=== PATIENT | male | born 1945 | race Caucasian/White ===

== ENCOUNTER 2018-04-02 10:09 | Outpatient (RCR) | payer MEDICARE, BC, SELFPAY | END 2018-04-02 10:10 | disposition home or self-care (01) | LOC: PT 10:09 | PROVIDERS: PCP Internal Medicine Adolescent Medicine; Visit Provider Internal Medicine | DX: I25.10 Atherosclerotic heart disease of native coronary artery without angina pectoris (principal) | CPT/HCPCS: 93798 ==

== ENCOUNTER 2018-07-15 17:14 | Inpatient (IN) ==
[2018-07-15 18:18] LABS: Basophils % 0.1 % (0.1-2.0); Eosinophils % 0.2 % (0.1-12.0); Hematocrit 34.6 % (42.0-52.0); Hemoglobin 11.9 g/dL (14.1-18.0); Lymphocytes # 0.6 K/mm3 (0.7-4.5); Lymphocytes % 9.9 % (10-50); Mean Corpuscular HGB Conc 34.6 g/dL (31.8-35.4); Mean Corpuscular Hemoglobin 30.3 pg (27.0-31.2); Mean Corpuscular Volume 87.7 fl (80-94); Mean Platelet Volume 6.2 fl (7.4-10.4); Monocytes # 0.4 K/mm3 (0.1-1.0); Monocytes % 7.4 % (1.7-9.3); Neutrophils # 4.5 K/mm3 (1.8-7.8); Neutrophils % 82.4 % (37.0-80.0); Platelet Count 201 K/mm3 (142-424); Red Blood Count 3.94 M/mm3 (4.60-6.20); Red Cell Distribution Width 13.2 % (11.5-17.5); White Blood Count 5.5 K/mm3 (4.8-10.8)
[2018-07-15 18:30] LABS: Albumin Level 3.4 gm/dL (3.4-5.0); Albumin/Globulin Ratio 0.9 (1.1-1.8); Bilirubin,Total 1.2 mg/dL (0.2-1.0); Calcium 8.4 mg/dL (8.5-10.1); Globulin 3.8 gm/dl (1.3-3.2); Potassium 3.3 mmoL/L (3.5-5.1); Total Protein,Serum 7.2 gm/dL (6.4-8.2)
[2018-07-15 18:35] LABS: Anion Gap 13.3 mEq/L (5-15)
--- NOTE | 2018-07-15 20:27 | Emergency Department Note ---
ED Disposition Clinical Impression: Gastroenteritis, Dehydration, Hyponatremia, Hypokalemia Disposition: Admitted as Observation Condition on Discharge: Good - Critical Care Critical Care Time: No Attestation: On 07/15/18, the high probability of a clinically significant, sudden or life threatening deterioration of the following system(s) required my full and direct attention, intervention and personal management. The time I documented below is in addition to time spent performing reported procedures but includes the follow ing listed in this critical care notation. Medical Decision Making - Medical Records Medical records reviewed: Yes: I reviewed the patient's medical records. - Jacob Inquiry Pt receiving controlled substance: No Jacob was queried for this patient: No Vital Signs: 07/15/18 17:52 Temperature 99.1 F Temperature Source Oral Pulse Rate [Left Radial] 89 Respiratory Rate 18 Blood Pressure [Right Arm] 119/61 Blood Pressure Mean [Right Arm] 80 Blood Pressure Source [Right Arm] Automatic Cuff Blood Pressure Position [Right Arm] Sitting 02 Sat by Pulse Oximetry 99 Oxygen Delivery Method Room Air - Lab Data Lab results reviewed: Yes: I reviewed the patient's lab results. Lab Results 07/15/18 18:10: WBC 5.5, RBC 3.94 L, Hgb 11.9 L, Hct 34.6 L, MCV 87.7, MCH 30.3, MCHC 34.6, RDW 13.2, Plt Count 201, MPV 6.2 L, Neut % (Auto) 82.4 H, Lymph % (Auto) 9.9 L, [place] % (Auto) 7.4, Eos % (Auto) 0.2, Baso % (Auto) 0.1, Neut # (Auto) 4.5, Lymph # (Auto) 0.6 L, [place] # (Auto) 0.4, Eos # (Auto) 0.0, Baso # (Auto) 0.0 07/15/18 18:10: Sodium 117 L, Potassium 3.3 L, Chloride 83 L, Carbon Dioxide 24, Anion Gap 13.3, BUN 9, Creatinine 0.81, Estimated Creat Clear 79, Estimated GFR 94, Est GFR ( Amer) 114, Glucose 117 H, Calcium 8.4 L, Total Bilirubin 1.2 H, AST 23, ALT 35, Alkaline Phosphatase 58, Total Protein 7.2, Albumin 3.4, Globulin 3.8 H, Albumin/Globulin Ratio 0.9 L Result diagrams: 07/15/18 18:10 07/15/18 18:10 Orders (Tests/Meds): ED MEDICATIONS Generic Name Dose Route Start Last Admin Trade Name Freq PRN Reason Stop Dose Admin Lactated Ringer's 1,000 mls @ 999 mls/hr 07/15/18 18:15 07/15/18 18:20 Lactated Ringer's 1000 Ml Bag IV 07/15/18 19:15 999 mls/hr .[id number] Administration Sodium Chloride 10 ml 07/15/18 17:57 Saline Flush 10ml Syringe IV 08/14/18 17:56 NEEDED PRN Maintain IV Site Discontinued Medications Generic Name Dose Route Start Last Admin Trade Name Freq PRN Reason Stop Dose Admin Ondansetron HCl 4 mg 07/15/18 18:13 07/15/18 18:20 Zofran 4mg/2ml Vial IV 07/15/18 18:14 4 mg ONCE ONE Administration Potassium Chloride 60 meq 07/15/18 20:23 07/15/18 21:03 Potassium Chloride 20meq/15ml Solution Udc PO 07/15/18 20:24 60 meq ONCE ONE Administration Medical Decision Narrative: Differential diagnosis viral gastroenteritis, colitis, viral syndrome dehydrat ion Patient started on IV fluids Ringer's lactate and given Zofran for nausea and pain of symptoms however his electrolytes show us her hyponatremia of [address] Cosme covering for Dr. Quiñones patient will be admitted discussed with family General Adult HPI - General Chief complaint: Nausea/Vomiting/Diarrhea Stated complaint: virus, D&V Time Seen by Provider: 07/15/18 17:55 Mode of Arrival: Ambulatory Source of Information: Patient Limitations: No Limitations Description of Symptoms (Recalled from ER Triage Doc. by RN): to ed per pvt car with c/o nausea, vomiting, diarrhea x 3 days pt denies any fever chills, abd pain denies any sick contacts. - History of Present Illness HPI narrative: 72-year-old male complaining of vomiting some diarrhea for last 2 days complains of weakness a history of one cardiac stent and history of HI in the past he is being treated for hypertension - Related Data Home Medications Medication Instructions Recorded Confirmed cholecalciferol (vitamin D3) 2,000 2,000 unit PO DAILY 04/07/18 07/01/18 unit capsule vitamin B complex tablet 1 tab PO DAILY 04/07/18 07/01/18 Previous Rx's Medication Instructions Recorded LORazepam [Ativan 0.5mg tablet] 0.5 mg PO BID #10 tab 03/28/18 aspirin 81 mg tablet,delayed 81 mg PO DAILY #90 tab 04/07/18 release bisoprolol fumarate 10 mg tablet 10 mg PO DAILY #90 tab 04/07/18 ezetimibe 10 mg-simvastatin 80 mg 1 tab PO DAILY 90 Days #90 tab 04/07/18 tablet lisinopril 20 mg tablet 40 mg PO DAILY 90 Days #180 tab 04/07/18 ticagrelor 90 mg tablet 90 mg PO BID 90 Days #180 tab 04/07/18 hydrochlorothiazide 25 mg tablet 25 mg PO DAILY #30 tab 05/12/18 amlodipine 10 mg tablet 10 mg PO DAILY #90 tab 07/01/18 Allergies Allergy/AdvReac Type Severity Reaction Status Date / Time No Known Allergies Allergy Verified 07/01/18 09:38 [facility] History - Hepatitis A Screen Drug use history?: No High risk sexual behaviors?: No History of sexually transmitted infection?: No Currently employed?: No Childcare worker?: No Do you have indoor plumbing?: Yes Do you have electricity?: Yes Attestation statement:: This patient has been screened for Hepatitis A risk factors. I have reviewed the patient's past medical history: Yes Medical History: Reports:: Anxiety, Coronary Artery Disease, Hyperlipidemia, Hypertension, Myocardial Infarction Denies:: Cancer, Diabetes Mellitus Type 2, Internal Pacemaker, MRSA, Seizures Other Surgeries: Yes: CABG, Cardiac Catheterization, Other (gastic ulcers-1993). No: Pacemaker - Social History Smoking Status: Former smoker Alcohol Intake: never Alcohol Intake Frequency:: holidays/special occasions only Substance Use Type: denies use Occupational Status: retired Housing: house Household Members: spouse - Psychiatric History Expresses thoughts of harming self/others: None Suicide Plan Description: No Plan Pschychiatric History:: Reports:: Anxiety Family Hx:: Coronary Artery Disease, Heart Attack Comment: Mom-HI at 78. Brother-HI at 47 ROS Obtained: Yes All systems reviewed & no additional complaints - Constitutional Constitutional: Reports as per HPI - Gastrointestinal Gastrointestingal: Reports: as per HPI, bloating, diarrhea, nausea Physical Exam - General General appearance: alert, in no apparent distress - Head Head exam: atraumatic, normocephalic, normal inspection - Eye Eye exam: Present: normal appearance, PERRL, EOMI - ENT ENT exam: Present: normal exam, normal oropharynx, mucous membranes moist, TM's normal bilaterally, normal external ear exam - Neck Neck exam: Present: normal inspection, full ROM, trachea midline. Absent: meningismus, lymphadenopathy - Chest Chest inspection: Present: normal inspection, symmetric chest wall rise. Absent: tenderness - Respiratory Respiratory exam: Present: normal lung sounds bilaterally. Absent: respiratory distress - Cardiovascular Cardiovascular exam: Present: regular rate, normal rhythm. Absent: JVD - Abdominal Exam Abdominal exam: Present: soft, normal bowel sounds. Absent: distention, tenderness, guarding - Extremities Exam Extremities exam: Present: normal inspection, full ROM, normal capillary refill. Absent: calf tenderness - Back Exam Back exam: Present: normal inspection. Absent: tenderness - Neurological Exam Neurological exam: Present: alert, oriented X3 - Psychiatric Psychiatric exam: Present: normal affect, normal mood - Skin Skin exam: Present: warm, dry, intact, normal color - Lymphatic Lymphatic Findings: no adenopathy
[2018-07-16 07:25] LABS: Anion Gap 11.4 mEq/L (5-15); Calcium 8.6 mg/dL (8.5-10.1); Potassium 3.4 mmoL/L (3.5-5.1)
--- NOTE | 2018-07-16 07:35 | Pharmacy Consult Notes ---
[facility] Pharmacy VTE Monitoring - Patient Demographics Admission date: 07/15/18 Report Date: 07/16/18 Time: 07:35 Allergies/Adverse Reactions: Patient Allergies No Known Allergies Allergy (Verified 07/01/18 09:38) Height: 1.7 m Weight: 83.461 kg Patient Problems: Current Active Problems Hyponatremia (Acute) Gastroenteritis (Acute) Dehydration (Acute) Hypokalemia (Acute) - VTE Risk Labs: VTE Related Lab Results Hgb 11.9 g/dL (14.1-18.0) L 07/15/18 18:10 Hct 34.6 % (42.0-52.0) L 07/15/18 18:10 Plt Count 201 K/mm3 (142-424) 07/15/18 18:10 BUN 7 mg/dL (7-18) 07/16/18 06:55 Creatinine 1.03 mg/dL (0.70-1.30) D 07/16/18 06:55 Estimated Creat Clear 79 mL/min (50-200) 07/16/18 06:55 Was VTE Risk Assessment Performed: Yes VTE Score: 4 VTE Risk Level: Low Risk - Prophylaxis VTE Prophylaxis Ordered?: Yes Types of VTE Prophylaxis: TEDS Knee High Location of Applied Device: Bilateral Lower Extremeties - VTE Diagnosis Confirmed Treatment or plan recommended: Continue Current Treatment
--- NOTE | 2018-07-16 09:20 | History & Physical Report ---
*Admission Date: 07/15/18 *Chief complaint: diarrhea *History of present illness: 72-year-old male complaining of vomiting with diarrhea for 7 days complains of weakness a history of one cardiac stent and history of [place] in the past he is being treated for hypertension. Patient stated he did with vomiting and diarrhea a week ago after eating lettuce. States at first he was constipated and took some mineral all and since then has had diarrhea. Patient states he has had 4 diarrheas this a.m. patient admitted for dehydration. Stool positive for Salmonella. Will hydrate. [facility] History I have reviewed the patient's past medical history: Yes Medical History: Reports:: Anxiety, Coronary Artery Disease, Hyperlipidemia, Hypertension, Myocardial Infarction Denies:: Cancer, Diabetes Mellitus Type 1, Diabetes Mellitus Type 2, Internal Pacemaker, MRSA, Seizures Have you ever received a pneumonia vaccine?: No Have you received a flu vaccine this season?: No Other Medical History: Reports: Sinus Problems (L SIDE BLOCKAGE) Other Surgeries: Yes: CABG, Cardiac Catheterization, Colonoscopy, Other (gastic ulcers-1993). No: Pacemaker - *Social History Educational Level: Completed High School Smoking Status: Former smoker #Yrs smoked (if former smoker): 12 Alcohol Intake: current Alcohol Intake Frequency:: a few times a week Substance Use Type: denies use Occupational Status: retired Housing: house Household Members: spouse, children Travel in the last 8 weeks: None - Psychiatric History Expresses thoughts of harming self/others: None Suicide Plan Description: No Plan Pschychiatric History:: Reports:: Anxiety *Family Hx:: Heart Attack Review of Systems - Constitutional Reports weakness - Eyes Denies change in vision - ENT Denies change in voice, Denies dizziness - *Cardiovascular Denies chest pain with activity - *Respiratory Denies chest congestion, Denies cough - *Gastrointestinal Reports abdominal pain, Reports change in bowel habits, Reports loose stools, Reports nausea, Reports vomiting - *Genitourinary Denies urinary frequency - *Musculoskeletal Denies back pain - Integumentary/Breasts Denies rash - *Neurologic Denies abnormal movements - Psychiatric Denies anxiety Meds Home Medications Medication Instructions Recorded Confirmed Type cholecalciferol (vitamin D3) 2,000 2,000 unit PO DAILY 04/07/18 07/15/18 History unit capsule vitamin B complex tablet 1 tab PO DAILY 04/07/18 07/15/18 History Amlodipine Besylate [Amlodipine 5 mg PO DAILY 07/15/18 07/15/18 History 10mg Tab] Aspirin [Low Dose Aspirin EC] 81 mg PO HS 07/15/18 07/15/18 History Bisoprolol Fumarate [Bisoprolol 10 mg PO DAILY 07/15/18 07/16/18 History 10mg Tablet] Ezetimibe/Simvastatin 1 tab PO HS 07/15/18 07/15/18 History [Ezetimibe-Simvastatin 10-80 mg] LORazepam [Ativan 0.5mg tablet] 0.5 mg PO BID 07/15/18 07/15/18 History Lisinopril [Lisinopril 20mg Tab] 40 mg PO DAILY 07/15/18 07/16/18 History Ticagrelor [Brilinta] 90 mg PO BID 07/15/18 07/15/18 History hydroCHLOROthiazide [HCTZ 25mg 25 mg PO DAILY 07/15/18 07/15/18 History tab] Allergies Allergy/AdvReac Type Severity Reaction Status Date / Time No Known Allergies Allergy Verified 07/01/18 09:38 Exam Vital signs and Labs for Last 24 Hours: Temp Pulse Resp BP Pulse Ox 98.5 F 71 18 115/53 L 99 07/16/18 08:00 07/16/18 08:00 07/16/18 08:00 07/16/18 08:00 07/16/18 08:00 Laboratory Results - last 24 hr 07/15/18 18:10: WBC 5.5, RBC 3.94 L, Hgb 11.9 L, Hct 34.6 L, MCV 87.7, MCH 30.3, MCHC 34.6, RDW 13.2, Plt Count 201, MPV 6.2 L, Neut % (Auto) 82.4 H, Lymph % (Auto) 9.9 L, [place] % (Auto) 7.4, Eos % (Auto) 0.2, Baso % (Auto) 0.1, Neut # (Auto) 4.5, Lymph # (Auto) 0.6 L, [place] # (Auto) 0.4, Eos # (Auto) 0.0, Baso # (Auto) 0.0 07/15/18 18:10: Sodium 117 L, Potassium 3.3 L, Chloride 83 L, Carbon Dioxide 24, Anion Gap 13.3, BUN 9, Creatinine 0.81, Estimated Creat Clear 79, Estimated GFR 94, Est GFR ( Amer) 114, Glucose 117 H, Calcium 8.4 L, Total Bilirubin 1.2 H, AST 23, ALT 35, Alkaline Phosphatase 58, Total Protein 7.2, Albumin 3.4, Globulin 3.8 H, Albumin/Globulin Ratio 0.9 L 07/16/18 05:50: Stl Aeromonas (PCR) Not detected, Stl C. cayetanensis PCR Not detected, Stool Rotavirus (PCR) Not detected, Stl Adenov F 40/41 PCR Not detected, Stool Astrovirus (PCR) Not detected, Stool Campylobacter PCR Not detected, Stl C.difficile Tox PCR Not detected, Stool Cryptosporidium PCR Not detected, Stl E.coli Shiga Tox PCR Not detected, Stool E coli O157 PCR Not detected, Stl Enterotoxigenic E PCR Not detected, Stool EPEC (PCR) Not detected, Stool EAEC (PCR) Not detected, Stl E. histolytica PCR Not detected, Stool Giardia Lamblia PCR Not detected, Stool Salmonella PCR Detected A, Stool Sapovirus (PCR) Not detected, Stl P. shigelloides PCR Not detected, Stl Shigella/EIEC PCR Not detected, St Y.enterocolitica PCR Not detected, Stool Vibrio (PCR) Not detected, Stl Vibrio cholerae PCR Not detected, Stl Norovirus GI/GII PCR Not detected 07/16/18 06:55: Sodium 124 L, Potassium 3.4 L, Chloride 89 L, Carbon Dioxide 27, Anion Gap 11.4, BUN 7, Creatinine 1.03 D, Estimated Creat Clear 79, Estimated GFR 71, Est GFR ( Amer) 86 D, Glucose 116 H, Calcium 8.6 I & O for Last 24 hours: Intake & Output 07/13/18 07/14/18 07/15/18 07/16/18 11:59 11:59 11:59 11:59 Intake Total 2250 / 2250 Output Total 550 / 550 Balance 1700 / 1700 Weight 184 lb - Constitutional no acute distress - *Routine HEENT Exam Head: Present: normocephalic Eye: Present: PERRL ENT: Present: mucous membranes moist - *Routine Neck Exam Present: supple. Absent: lymphadenopathy - *Routine Respiratory Exam Present: CTA bilaterally - *Routine Cardiovascular Exam Present: RRR - *Routine Abdominal Exam Present: soft, normoactive bowel sounds, tenderness - *Routine Extremities Exam Absent: cyanosis, clubbing, edema - *Routine Skin Exam Present: warm. Absent: rash - *Routine Neurological Exam Present: alert, oriented X3 - Routine Psychiatric Exam Present: normal affect Assessment and Plan (1) Salmonella Current visit: Yes Status: Acute Category: Medical Code(s): A02.9 - Salmonella infection, unspecified - Assessment and plan all Dx Assessment and Plan for all problems:: Fluid hydration Dr. Cosme will round later today, all orders per Dr. Cosme.
[2018-07-17 06:54] LABS: Basophils % 0.2 % (0.1-2.0); Hematocrit 32.8 % (42.0-52.0); Lymphocytes # 0.4 K/mm3 (0.7-4.5); Lymphocytes % 13.6 % (10-50); Mean Corpuscular HGB Conc 33.5 g/dL (31.8-35.4); Mean Corpuscular Hemoglobin 29.9 pg (27.0-31.2); Mean Corpuscular Volume 89.4 fl (80-94); Monocytes # 0.3 K/mm3 (0.1-1.0); Monocytes % 8.5 % (1.7-9.3); Neutrophils # 2.4 K/mm3 (1.8-7.8); Neutrophils % 77.7 % (37.0-80.0); Platelet Count 182 K/mm3 (142-424); Red Blood Count 3.67 M/mm3 (4.60-6.20); Red Cell Distribution Width 13.1 % (11.5-17.5)
[2018-07-17 07:34] LABS: Albumin Level 2.8 gm/dL (3.4-5.0); Albumin/Globulin Ratio 0.8 (1.1-1.8); Anion Gap 16.4 mEq/L (5-15); Globulin 3.6 gm/dl (1.3-3.2); Potassium 3.4 mmoL/L (3.5-5.1); Total Protein,Serum 6.4 gm/dL (6.4-8.2)
[2018-07-17 07:36] LABS: Bilirubin,Total 1.3 mg/dL (0.2-1.0); Calcium 8.1 mg/dL (8.5-10.1)
--- NOTE | 2018-07-17 07:53 | Progress Note ---
Internal Medicine - PN: Subj *Date: 07/17/18 *Time: 07:51 Interval history: Patient continues to have some diarrhea. Has had no vomiting. No fevers. Exam Vital signs and Labs for Last 24 Hours: Temp Pulse Resp BP Pulse Ox 99.4 F 73 18 107/58 L 96 07/17/18 04:00 07/17/18 04:00 07/17/18 04:00 07/17/18 04:00 07/17/18 04:00 Laboratory Results - last 24 hr 07/16/18 05:50: Stl Aeromonas (PCR) Not detected, Stl C. cayetanensis PCR Not detected, Stool Rotavirus (PCR) Not detected, Stl Adenov F 40/41 PCR Not detected, Stool Astrovirus (PCR) Not detected, Stool Campylobacter PCR Not detected, Stl C.difficile Tox PCR Not detected, Stool Cryptosporidium PCR Not detected, Stl E.coli Shiga Tox PCR Not detected, Stool E coli O157 PCR Not detected, Stl Enterotoxigenic E PCR Not detected, Stool EPEC (PCR) Not detected, Stool EAEC (PCR) Not detected, Stl E. histolytica PCR Not detected, Stool Giardia Lamblia PCR Not detected, Stool Salmonella PCR Detected A, Stool Sapovirus (PCR) Not detected, Stl P. shigelloides PCR Not detected, Stl Shigella/EIEC PCR Not detected, St Y.enterocolitica PCR Not detected, Stool Vibrio (PCR) Not detected, Stl Vibrio cholerae PCR Not detected, Stl Norovirus GI/GII PCR Not detected 07/17/18 06:10: WBC 3.0 L D, RBC 3.67 L, Hgb 11.0 L, Hct 32.8 L, MCV 89.4, MCH 29.9, MCHC 33.5, RDW 13.1, Plt Count 182, MPV 8.0, Neut % (Auto) 77.7, Lymph % (Auto) 13.6, [place] % (Auto) 8.5, Eos % (Auto) 0.0 L, Baso % (Auto) 0.2, Neut # (Auto) 2.4, Lymph # (Auto) 0.4 L, [place] # (Auto) 0.3, Eos # (Auto) 0.0, Baso # (Auto) 0.0 02/01/19 06:10: Sodium 126 L, Potassium 3.4 L, Chloride 92 L, Carbon Dioxide 21 D, Anion Gap 16.4 H, BUN 5 L D, Creatinine 0.72 D, Estimated Creat Clear 85, Estimated GFR 108, Est GFR ( Amer) 131 D, Glucose 101, Calcium 8.1 L, Total Bilirubin 1.3 H, AST 29 D, ALT 30, Alkaline Phosphatase 47, Total Protein 6.4, Albumin 2.8 L D, Globulin 3.6 H, Albumin/Globulin Ratio 0.8 L I & O for Last 24 hours: Intake & Output 07/14/18 07/15/18 07/16/18 07/17/18 11:59 11:59 11:59 11:59 Intake Total 2250 / 2250 1418 / 1418 Output Total 550 / 550 200 / 200 Balance 1700 / 1700 1218 / 1218 Weight 184 lb 192 lb 3 oz Narrative: Patient is pleasant and talkative. Lungs clear heart regular. Blood pressure normal. No rash. Neurologically intact. Abdomen soft, minimal tenderness. Normal bowel sounds. No scleral icterus or signs of liver disease. Assessment and Plan (1) Salmonella Current visit: Yes Status: Acute Category: Medical Code(s): A02.9 - Salmonella infection, unspecified No indication for antibiotic therapy at this point given no evidence of sepsis however blood cultures were not ordered the ER. We will order these for completeness sake. Follow labs tomorrow. Pepto-Bismol for symptomatic relief and toxin binding. Close follow-up and discharge when improved. Laboratory studies have been reported to the appropriate health department authorities. Patient thinks that he acquired the infection from some josué lettuce from a local grocery.
[2018-07-18 07:31] LABS: Basophils % 0.1 % (0.1-2.0); Hematocrit 28.8 % (42.0-52.0); Hemoglobin 9.8 g/dL (14.1-18.0); Lymphocytes # 0.4 K/mm3 (0.7-4.5); Lymphocytes % 14.8 % (10-50); Mean Corpuscular HGB Conc 33.9 g/dL (31.8-35.4); Mean Corpuscular Hemoglobin 29.9 pg (27.0-31.2); Mean Corpuscular Volume 88.3 fl (80-94); Mean Platelet Volume 6.7 fl (7.4-10.4); Monocytes # 0.2 K/mm3 (0.1-1.0); Monocytes % 5.1 % (1.7-9.3); Neutrophils # 2.4 K/mm3 (1.8-7.8); Platelet Count 189 K/mm3 (142-424); Red Blood Count 3.27 M/mm3 (4.60-6.20); Red Cell Distribution Width 13.1 % (11.5-17.5); White Blood Count 2.9 K/mm3 (4.8-10.8)
[2018-07-18 07:40] LABS: Calcium 7.7 mg/dL (8.5-10.1)
--- NOTE | 2018-07-18 08:54 | Progress Note ---
Internal Medicine - PN: Subj *Date: 07/18/18 *Time: 08:53 Interval history: Patient did not have a good evening, lots of liquid stools. No blood. Some chills but no fever. Exam Vital signs and Labs for Last 24 Hours: Temp Pulse Resp BP Pulse Ox 97.9 F 70 18 114/51 L 98 07/18/18 08:00 07/18/18 08:00 07/18/18 08:00 07/18/18 08:00 07/18/18 08:00 Laboratory Results - last 24 hr 07/18/18 07:10: WBC 2.9 L, RBC 3.27 L, Hgb 9.8 L, Hct 28.8 L, MCV 88.3, MCH 29.9, MCHC 33.9, RDW 13.1, Plt Count 189, MPV 6.7 L, Neut % (Auto) 80.0, Lymph % (Auto) 14.8, [place] % (Auto) 5.1, Eos % (Auto) 0.0 L, Baso % (Auto) 0.1, Neut # (Auto) 2.4, Lymph # (Auto) 0.4 L, [place] # (Auto) 0.2, Eos # (Auto) 0.0, Baso # (Auto) 0.0 07/18/18 07:10: Sodium 121 L, Potassium 3.0 L, Chloride 88 L, Carbon Dioxide 23, Anion Gap 13.0, BUN 6 L, Creatinine 0.77, Estimated Creat Clear 86, Estimated GFR 100, Est GFR ( Amer) 121, Glucose 138 H, Calcium 7.7 L I & O for Last 24 hours: Intake & Output 07/15/18 07/16/18 07/17/18 07/18/18 11:59 11:59 11:59 11:59 Intake Total 2250 / 2250 1658 / 1658 4297 / 4297 Output Total 550 / 550 500 / 500 Balance 1700 / 1700 1158 / 1158 4297 / 4297 Weight 184 lb 192 lb 3 oz 195 lb 4 oz Narrative: Patient's alert. Pleasant. Talkative. Oropharynx slightly dry. Lungs clear. Heart rate regular. Not tachycardic. Blood pressure stable. Distal tissue perfusion is good. Abdomen soft, very minimal tenderness in the lower quadrants but no rebound or guarding. Neurologically intact. No icterus or jaundice. Assessment and Plan (1) Salmonella Current visit: Yes Status: Acute Category: Medical Code(s): A02.9 - Salmonella infection, unspecified Given his age and hospitalization status as well as failure to improve I will initiate antibiotic therapy with oral quinolones. (2) Dehydration Current visit: Yes Status: Acute Category: Medical Code(s): E86.0 - Dehydration Switch IV fluids to normal saline with potassium to counteract hypokalemia, Lomotil to help stop diarrhea to help with sodium balance. (3) Hypokalemia Current visit: Yes Status: Acute Category: Medical Code(s): E87.6 - Hypokalemia (4) Hyponatremia Current visit: Yes Status: Acute Category: Medical Code(s): E87.1 - Hypo- osmolality and hyponatremia
[2018-07-18 18:21] LABS: Anion Gap 9.5 mEq/L (5-15); Calcium 7.5 mg/dL (8.5-10.1); Potassium 3.5 mmoL/L (3.5-5.1)
[2018-07-19 06:51] LABS: Basophils % 0.3 % (0.1-2.0); Eosinophils % 0.1 % (0.1-12.0); Hemoglobin 9.8 g/dL (14.1-18.0); Lymphocytes # 0.6 K/mm3 (0.7-4.5); Lymphocytes % 13.5 % (10-50); Mean Corpuscular HGB Conc 33.6 g/dL (31.8-35.4); Mean Corpuscular Hemoglobin 29.8 pg (27.0-31.2); Mean Corpuscular Volume 88.5 fl (80-94); Mean Platelet Volume 6.3 fl (7.4-10.4); Monocytes # 0.3 K/mm3 (0.1-1.0); Monocytes % 8.2 % (1.7-9.3); Neutrophils # 3.2 K/mm3 (1.8-7.8); Neutrophils % 77.9 % (37.0-80.0); Platelet Count 206 K/mm3 (142-424); Red Blood Count 3.29 M/mm3 (4.60-6.20); Red Cell Distribution Width 13.3 % (11.5-17.5); White Blood Count 4.1 K/mm3 (4.8-10.8)
[2018-07-19 06:54] LABS: Hematocrit 29.1 % (42.0-52.0)
[2018-07-19 06:59] LABS: Anion Gap 11.4 mEq/L (5-15); Calcium 8.1 mg/dL (8.5-10.1); Potassium 3.4 mmoL/L (3.5-5.1)
--- NOTE | 2018-07-19 07:35 | Progress Note ---
Internal Medicine - PN: Subj *Date: 07/19/18 *Time: 07:34 Interval history: Patient continues to have copious, frequent, liquid stool, but has not vomited recently. Was able to eat some toast and a banana for breakfast. No fevers. Tolerating levofloxacin well. Exam Vital signs and Labs for Last 24 Hours: Temp Pulse Resp BP Pulse Ox 97.9 F 77 20 124/54 L 95 07/19/18 03:44 07/19/18 03:44 07/19/18 03:44 07/19/18 03:44 07/19/18 03:44 Laboratory Results - last 24 hr 07/18/18 07:10: WBC 2.9 L, RBC 3.27 L, Hgb 9.8 L, Hct 28.8 L, MCV 88.3, MCH 29.9, MCHC 33.9, RDW 13.1, Plt Count 189, MPV 6.7 L, Neut % (Auto) 80.0, Lymph % (Auto) 14.8, [place] % (Auto) 5.1, Eos % (Auto) 0.0 L, Baso % (Auto) 0.1, Neut # (Auto) 2.4, Lymph # (Auto) 0.4 L, [place] # (Auto) 0.2, Eos # (Auto) 0.0, Baso # (Auto) 0.0 07/18/18 07:10: Sodium 121 L, Potassium 3.0 L, Chloride 88 L, Carbon Dioxide 23, Anion Gap 13.0, BUN 6 L, Creatinine 0.77, Estimated Creat Clear 86, Estimated GFR 100, Est GFR ( Amer) 121, Glucose 138 H, Calcium 7.7 L 07/18/18 18:03: Sodium 119 L, Potassium 3.5, Chloride 88 L, Carbon Dioxide 25, Anion Gap 9.5, BUN 6 L, Creatinine 0.72, Estimated Creat Clear 86, Estimated GFR 108, Est GFR ( Amer) 131, Glucose 137 H, Calcium 7.5 L 07/19/18 06:35: WBC 4.1 L D, RBC 3.29 L, Hgb 9.8 L, Hct 29.1 L, MCV 88.5, MCH 29.8, MCHC 33.6, RDW 13.3, Plt Count 206, MPV 6.3 L, Neut % (Auto) 77.9, Lymph % (Auto) 13.5, [place] % (Auto) 8.2, Eos % (Auto) 0.1, Baso % (Auto) 0.3, Neut # (Auto) 3.2, Lymph # (Auto) 0.6 L, [place] # (Auto) 0.3, Eos # (Auto) 0.0, Baso # (Auto) 0.0 07/19/18 06:35: Sodium 124 L, Potassium 3.4 L, Chloride 92 L, Carbon Dioxide 24, Anion Gap 11.4, BUN 4 L D, Creatinine 0.68 L, Estimated Creat Clear 86, Estimated GFR 115, Est GFR ( Amer) 139, Glucose 114 H, Calcium 8.1 L I & O for Last 24 hours: Intake & Output 07/16/18 07/17/18 07/18/18 07/19/18 11:59 11:59 11:59 11:59 Intake Total 2250 / 2250 1658 / 1658 4297 / 4297 4244 / 4244 Output Total 550 / 550 500 / 500 Balance 1700 / 1700 1158 / 1158 4297 / 4297 4244 / 4244 Weight 184 lb 192 lb 3 oz 195 lb 4 oz 195 lb 4.003 oz Narrative: Up in a chair, pleasant. No jaundice. Lungs clear. Heart rate regular without tachycardia. Abdomen soft and nontender. No clubbing or edema. No skin rash. Neurologically intact Assessment and Plan (1) Salmonella Current visit: Yes Status: Acute Category: Medical Code(s): A02.9 - Salmonella infection, unspecified (2) Dehydration Current visit: Yes Status: Acute Category: Medical Code(s): E86.0 - Dehydration (3) Hypokalemia Current visit: Yes Status: Acute Category: Medical Code(s): E87.6 - Hypokalemia (4) Hyponatremia Current visit: Yes Status: Acute Category: Medical Code(s): E87.1 - Hypo- osmolality and hyponatremia - Assessment and plan all Dx Assessment and Plan for all problems:: No change in plans, electrolytes improving compared to yesterday. Patient appears somewhat stronger. Continue current plan.
[2018-07-20 07:00] LABS: Basophils % 0.1 % (0.1-2.0); Eosinophils % 0.1 % (0.1-12.0); Hematocrit 30.2 % (42.0-52.0); Hemoglobin 10.2 g/dL (14.1-18.0); Lymphocytes # 0.5 K/mm3 (0.7-4.5); Lymphocytes % 9.4 % (10-50); Mean Corpuscular HGB Conc 33.8 g/dL (31.8-35.4); Mean Corpuscular Hemoglobin 29.9 pg (27.0-31.2); Mean Corpuscular Volume 88.5 fl (80-94); Mean Platelet Volume 6.3 fl (7.4-10.4); Monocytes # 0.3 K/mm3 (0.1-1.0); Monocytes % 6.3 % (1.7-9.3); Neutrophils # 4.5 K/mm3 (1.8-7.8); Platelet Count 229 K/mm3 (142-424); Red Blood Count 3.42 M/mm3 (4.60-6.20); Red Cell Distribution Width 13.5 % (11.5-17.5); White Blood Count 5.4 K/mm3 (4.8-10.8)
[2018-07-20 07:14] LABS: Albumin Level 2.5 gm/dL (3.4-5.0); Albumin/Globulin Ratio 0.7 (1.1-1.8); Anion Gap 12.8 mEq/L (5-15); Bilirubin,Total 1.4 mg/dL (0.2-1.0); Calcium 7.9 mg/dL (8.5-10.1); Globulin 3.6 gm/dl (1.3-3.2); Potassium 3.8 mmoL/L (3.5-5.1); Total Protein,Serum 6.1 gm/dL (6.4-8.2)
--- NOTE | 2018-07-20 08:12 | Discharge Summary ---
General - General Admission date:: 07/15/18 Discharge date: 07/20/18 HPI HPI: 72-year-old male complaining of vomiting with diarrhea for 7 days complains of weakness a history of one cardiac stent and history of VT in the past he is being treated for hypertension. Patient stated he did with vomiting and diarrhea a week ago after eating lettuce. States at first he was constipated and took some mineral all and since then has had diarrhea. Patient states he has had 4 diarrheas this a.m. patient admitted for dehydration. Stool positive for Salmonella. Will hydrate. Hospital Course Hospital Course: Patient initially treated with supportive care, but given continuing electrolyte disturbance, advanced age and comorbidities quinolone antibiotics were started which improved his symptoms and he defervesced. Blood cultures were negative throughout his hospital stay. Hyponatremia, hypokalemia and hypocalcemia were treated with intravenous fluid electrolyte replacement respectively. Patient continued to have diarrhea but this has improved and he is able to take p.o. fluids and p.o. food with a low residue diet with minimal postprandial diarrhea. He wished to be discharged home today and has had no dizziness, chest pain or fevers over the past 48 hours. Plan will be to discharge home with quinolone therapy, Lomotil and his regular medications. Instructed on hydration with salt-containing beverages. Electrolyte panel in 48 hours and follow-up appointment in our office on . Objective Vital signs: Temp Pulse Resp BP Pulse Ox 97.4 F L 75 16 129/62 94 L 07/20/18 07:33 07/20/18 07:33 07/20/18 07:33 07/20/18 07:33 07/20/18 07:33 Narrative: Patient is pleasant, alert. No scleral icterus. No jaundice. Abdomen soft, normal bowel sounds. Lungs clear. Heart rate regular. Good distal perfusion. ENT exam clear. Oral mucosa moist. Neurologically intact. Results Labs on day of discharge: Labs from last 24 hours 07/20/18 07/20/18 06:40 06:40 WBC 5.4 D RBC 3.42 L Hgb 10.2 L Hct 30.2 L MCV 88.5 MCH 29.9 MCHC 33.8 RDW 13.5 Plt Count 229 MPV 6.3 L Neut % (Auto) 84.0 H Lymph % (Auto) 9.4 L Dawson % (Auto) 6.3 Eos % (Auto) 0.1 Baso % (Auto) 0.1 Neut # (Auto) 4.5 Lymph # (Auto) 0.5 L Dawson # (Auto) 0.3 Eos # (Auto) 0.0 Baso # (Auto) 0.0 Sodium 124 L Potassium 3.8 Chloride 93 L Carbon Dioxide 22 Anion Gap 12.8 BUN 4 L Creatinine 0.62 L Estimated Creat Clear 85 Estimated GFR 128 Est GFR ( Amer) 155 Glucose 109 H Calcium 7.9 L Total Bilirubin 1.4 H AST 37 ALT 46 Alkaline Phosphatase 46 Total Protein 6.1 L Albumin 2.5 L Globulin 3.6 H Albumin/Globulin Ratio 0.7 L Preliminary micro results at discharge 07/17/18 09:30 Blood Culture - Preliminary Blood NO GROWTH AFTER 48 HOURS 07/17/18 09:30 Blood Culture - Preliminary Blood NO GROWTH AFTER 48 HOURS DS: Diagnosis - Discharge Diagnosis (1) Salmonella Status: Acute (2) Dehydration Status: Resolved (3) Hypokalemia Status: Resolved (4) Hyponatremia Status: Resolved (5) Hypocalcemia Status: Resolved Discharge Plan - Patient Discharge Instructions ACTIVITY: Limited activity Additional Instructions: low residue diet. Gatorade or Powerade instead of water Patient Instructions: Viral Gastroenteritis, Low-Fiber/Low-Residue Diet, DI for Dehydration -- Adult, DI for Antibiotic -- associated Colitis -- C difficile, DI for Salmonellosis, Hyponatremia-Adult - Follow up Plan Follow up with: Jewell Hdz APRN [Nurse Practitioner] - 07/23/18 Disposition: Home, Self-Alf Medications: Home Medications Medication Instructions Recorded Confirmed Type cholecalciferol (vitamin D3) 2,000 2,000 unit PO DAILY 04/07/18 07/15/18 History unit capsule vitamin B complex tablet 1 tab PO DAILY 04/07/18 07/15/18 History Amlodipine Besylate [Amlodipine 5 mg PO DAILY 07/15/18 07/15/18 History 10mg Tab] Aspirin [Low Dose Aspirin EC] 81 mg PO HS 07/15/18 07/15/18 History Bisoprolol Fumarate [Bisoprolol 10 mg PO DAILY 07/15/18 07/16/18 History 10mg Tablet] Ezetimibe/Simvastatin 1 tab PO HS 07/15/18 07/15/18 History [Ezetimibe-Simvastatin 10-80 mg] LORazepam [Ativan 0.5mg tablet] 0.5 mg PO BID 07/15/18 07/15/18 History Lisinopril [Lisinopril 20mg Tab] 40 mg PO DAILY 07/15/18 07/16/18 History Ticagrelor [Brilinta] 90 mg PO BID 07/15/18 07/15/18 History hydroCHLOROthiazide [HCTZ 25mg 25 mg PO DAILY 07/15/18 07/15/18 History tab] Diphenoxylate HCl/Atropine 2.5 mg PO Q6HP PRN #20 tab 07/20/18 Rx [Lomotil 2.5mg tablet] Lactobacillus Reuteri [Lactinex 1 gm PO TIDWM #21 packet 07/20/18 Rx granules 1gm pkt] levoFLOXacin [Levaquin 500mg 500 mg PO 1100 #5 tab 07/20/18 Rx tab] Prescriptions/Medication Reconciliation: New Diphenoxylate HCl/Atropine [Lomotil 2.5mg tablet] 2.5 mg PO Q6HP PRN #20 tab PRN Reason: Diarrhea levoFLOXacin [Levaquin 500mg tab] 500 mg PO 1100 #5 tab Lactobacillus Reuteri [Lactinex granules 1gm pkt] 1 gm PO TIDWM #21 packet Continue vitamin B complex tablet 1 tab PO DAILY cholecalciferol (vitamin D3) 2,000 unit capsule 2,000 unit PO DAILY Lisinopril [Lisinopril 20mg Tab] 40 mg PO DAILY Bisoprolol Fumarate [Bisoprolol 10mg Tablet] 10 mg PO DAILY Aspirin [Low Dose Aspirin EC] 81 mg PO HS LORazepam [Ativan 0.5mg tablet] 0.5 mg PO BID Ticagrelor [Brilinta] 90 mg PO BID Amlodipine Besylate [Amlodipine 10mg Tab] 5 mg PO DAILY Ezetimibe/Simvastatin [Ezetimibe-Simvastatin 10-80 mg] 1 tab PO HS Discontinued hydroCHLOROthiazide [HCTZ 25mg tab] 25 mg PO DAILY Other Amb Orders: Basic Metabolic Panel Time Frame: 2 Days, Facility: [facility], Location: Laboratory
== END 2018-07-20 09:05 | disposition home or self-care (01) | DRG 868 ==
LOC: ER 17:14 → 2ND 17:14 → OBSVTOIN 21:42 → 2ND 21:43
PROVIDERS: ADMIT Emergency Medicine; ATTEND Internal Medicine Adolescent Medicine
CPT/HCPCS: 36415; 80048; 80053; 85025; 87040; 87507; 96365; 96375; 99283; J2405

== ENCOUNTER → 2018-07-22 08:37 | Outpatient (CLI) | payer MEDICARE, BC, SELFPAY ==
[2018-07-22 10:41] LABS: Anion Gap 13.8 mEq/L (5-15); Blood Urea Nitrogen 7 mg/dL (7-18); Calcium 8.2 mg/dL (8.5-10.1); Carbon Dioxide 25 mmol/L (21.0-32.0); Chloride 93 mmol/L (98-107); Estimated Glomerular Filt Rate 111 ml/min (>60); GFR (African American) 135 ML/MIN (>60); Glucose 93 mg/dL (74-106); Sodium 129 mmol/L (136-145)
[2018-07-22 10:58] LABS: Potassium 2.8 mmoL/L (3.5-5.1)
== END ==
PROVIDERS: Visit Provider Internal Medicine Adolescent Medicine
DX: E86.0 Dehydration (principal)
CPT/HCPCS: 36415; 80048

== ENCOUNTER → 2020-09-13 06:47 | Outpatient (CLI) | payer MEDICARE, BC, SELFPAY ==
--- NOTE | 2020-09-13 07:14 | CT_ITS ---
PROCEDURE: CT SINUS WO CON CLINICAL HISTORY: SWELLING OF LT PAROTID COMPARISON: No exams were available for comparison TECHNIQUE: Axial images obtained with sagittal and coronal reformats. All CT scans at the facility use one or more dose reduction, viz: automated exposure control, ma/kV adjustment per patient size (including targeted exams where dose is matched to indication, i.e. head), or iterative reconstruction technique. FINDINGS: The presence of beam hardening artifact from dental hardware limits evaluation. Minor mucosal thickening of the ethmoidal sinuses. Minor mucosal thickening of the maxillary sinus, predominantly on the left. The frontal and sphenoid sinuses are unremarkable. The ostiomeatal complexes bilaterally are unremarkable without evidence of obstruction. The frontoethmoidal and sphenoid ethmoidal recesses are patent. The sinuses demonstrate no evidence of air-fluid levels. The parotid glands are partially obscured due the presence of significant beam hardening artifact. Minor heterogeneous density of the left parotid gland, incompletely evaluated on the current study due to lack of intravenous contrast and beam hardening artifact from dental hardware. IMPRESSION: Limited study due to beam hardening artifact. Minor mucosal disease of the maxillary and ethmoidal sinuses. No air-fluid levels to suggest acute sinusitis. Heterogeneous density of the left parotid gland is noted, incompletely evaluated due to the presence of beam hardening artifact and lack of intravenous contrast. If clinically indicated, ultrasound should be considered for further evaluation. MRI may be helpful. Dictated by: Susannah Christensen 09/13/2020 10:37 Susannah Christensen in [place] 09/13/2020 10:37
== END ==
PROVIDERS: PCP Internal Medicine Adolescent Medicine; Visit Provider Internal Medicine Adolescent Medicine
DX: R22.1 Localized swelling, mass and lump, neck (principal)
CPT/HCPCS: 70486

== ENCOUNTER → 2020-09-15 15:34 | Outpatient (CLI) | payer MEDICARE, BC, SELFPAY ==
[2020-09-15 17:15] LABS: Blood Urea Nitrogen 12 mg/dl (9-20); Estimated Glomerular Filt Rate 83 ml/min (>60); GFR (African American) 100 ML/MIN (>60)
== END ==
PROVIDERS: Visit Provider Internal Medicine Adolescent Medicine
DX: R60.0 Localized edema (principal)
CPT/HCPCS: 36415; 82565; 84520

== ENCOUNTER → 2020-09-18 10:17 | Outpatient (CLI) | payer MEDICARE, BC, SELFPAY ==
--- NOTE | 2020-09-18 10:21 | MR_ITS ---
PROCEDURE: MR ORBITS FACE NECK WO/W CON CLINICAL INDICATION: SWELLING OF LEFT PAROTID GLAND Abnormal CT scan of the parotid gland on 2-5-48. 17ml prohance given. The lot:[id number] exp:Jul 2022 bun:12 cre:0.9 gfr:83. COMPARISON: CT CT SINUS WO CON from 09/13/2020 TECHNIQUE: Routine multiplanar multi echo sequences are performed without gadolinium enhancement. FINDINGS: No parotid mass is evident. There is intermixed fat signal intensity within both parotids accounting for the heterogeneous density on the CT scan. No abnormal enhancement. No abnormal fluid collection. No adenopathy IMPRESSION: Unremarkable MRI the parotid glands Dictated by: Ed Cisneros MD 09/20/2020 09:05 Ed Cisneros MD in [place] 09/20/2020 09:05
== END ==
PROVIDERS: PCP Internal Medicine Adolescent Medicine; Visit Provider Internal Medicine Adolescent Medicine
DX: R22.1 Localized swelling, mass and lump, neck (principal)
CPT/HCPCS: 70543; A9576

== ENCOUNTER → 2020-11-20 13:27 | Outpatient (CLI) | payer MEDICARE, BC, SELFPAY ==
--- NOTE | 2020-11-20 13:27 | CA_ITS ---
APPROVED REPORT Installation Supervisor: ELVIA Laterality: Bilateral Study Quality: Adequate Indications: left carotid bruit Risk Factors Hypertension: Hyperlipidemia CAD, Doppler Spectral Velocity Analysis ECA (R) 113.00/10.50 cm/s ECA (L) 73.70/12.90 cm/s dICA (R) 102.80/20.60 cm/s dICA (L) 100.20/28.30 cm/s Renea (R) 96.80/19.70 cm/s Renea (L) 91.70/29.10 cm/s pICA (R) 135.40/30.00 cm/s pICA (L) 73.70/14.60 cm/s dCCA (R) 85.30/17.20 cm/s dCCA (L) 78.00/16.30 cm/s pCCA (R) 90.90/13.90 cm/s pCCA (L) 94.20/14.60 cm/s Vert (R) 50.60/10.30 cm/s Vert (L) 41.50/11.10 cm/s ICA/CCA 1.59 ICA/CCA 1.29 Findings Mild to moderate heterogenous plaque noeted in bilateral proximal ICA's Duplex evaluation demonstrates stenosis of the right proximal internal carotid artery in the range of 20-49%. Duplex evaluation demonstrates stenosis of the left proximal internal carotid artery in the range of 20-49%. Duplex evaluation demonstrates antegrade flow of the bilateral Vertebral Arteries. Conclusion Duplex evaluation demonstrates stenosis of the right proximal internal carotid artery in the range of 20-49%. Duplex evaluation demonstrates stenosis of the left proximal internal carotid artery in the range of 20-49%. Duplex evaluation demonstrates antegrade flow of the bilateral Vertebral Arteries. Electronically signed by : Ed Cisneros MD 11/20/2020 17:41:18
== END ==
PROVIDERS: PCP Internal Medicine Adolescent Medicine; Visit Provider Nurse Practitioner Family
DX: I25.5 Ischemic cardiomyopathy (principal); R09.89 Other specified symptoms and signs involving the circulatory and respiratory systems; R94.31 Abnormal electrocardiogram [ECG] [EKG]
CPT/HCPCS: 93306; 93880

== ENCOUNTER → 2021-10-22 08:45 | Outpatient (CLI) | payer MEDICARE, BC, SELFPAY ==
[2021-10-22 10:02] LABS: Alanine Aminotransferase 33 U/L (12-78); Albumin Level 4.4 g/dl (3.5-5.0); Alkaline Phosphatase 70 U/L (38-126); Aspartate Amino Transferase 35 U/L (17-59); Bilirubin,Indirect 0.9 mg/dL (0.0-0.9); Bilirubin,Total 0.9 mg/dl (0.2-1.3); Bilirubin,Unconjugated 0.9 mg/dL (0.0-1.1); Chol/HDL Ratio 3.8 (1-3.5); Cholesterol 99 mg/dl (140-200); HDL Cholesterol 26 mg/dl (40-60); Total Protein,Serum 7.7 g/dl (6.3-8.2); Triglycerides 99 mg/dl (30-150); VLDL Cholesterol 20 mg/dL (0-40)
[2021-10-22 10:13] LABS: Direct LDL Cholesterol 50.13 mg/dL (100-129)
== END ==
PROVIDERS: Visit Provider Physician Assistant
DX: E78.2 Mixed hyperlipidemia (principal); I25.10 Atherosclerotic heart disease of native coronary artery without angina pectoris; I25.5 Ischemic cardiomyopathy
CPT/HCPCS: 36415; 80061; 80076

== ENCOUNTER → 2021-11-02 08:23 | Outpatient (CLI) | payer MEDICARE, BC, SELFPAY ==
[2021-11-02 08:27] LABS: Adenovirus F 40/41, stool Not Detected (NotDetected); Astrovirus Not Detected (NotDetected); Campylobacter Not Detected (NotDetected); Clostridium Difficile A/B, PCR Not Detected (NotDetected); Cryptosporidium Not Detected (NotDetected); Cyclospora Cayetanesis Not Detected (NotDetected); Entamoeba histolytica Not Detected (NotDetected); Enteroaggregative E coli Not Detected (NotDetected); Enteropathogenic E coli Not Detected (NotDetected); Enterotoxigenic E coli Not Detected (NotDetected); Giardia lamblia Not Detected (NotDetected); Norovirus Not Detected (NotDetected); Plesimonas Shigalloides, PCR Not Detected (NotDetected); Rotavirus A Not Detected (NotDetected); Salmonella, PCR Not Detected (NotDetected); Sapovirus Not Detected (NotDetected); Shiga-like toxin E coli Not Detected (NotDetected); Shigella Enterovasive E coli Not Detected (NotDetected); Vibrio Cholerae Not Detected (NotDetected); Vibrio, PCR Not Detected (NotDetected); Yersinia Entercolitica, PCR Not Detected (NotDetected)
[2021-11-02 10:27] LABS: Occult Blood,Stool Negative (Negative)
== END ==
PROVIDERS: Visit Provider Nurse Practitioner Family
DX: R19.7 Diarrhea, unspecified (principal); R19.5 Other fecal abnormalities
CPT/HCPCS: 82272; 87506; G0328

== ENCOUNTER → 2021-11-07 11:56 | Outpatient (CLI) | payer MEDICARE, BC, SELFPAY ==
[2021-11-07 12:44] LABS: Basophils % 0.9 % (0.1-2.0); Eosinophils # 0.1 K/mm3 (0.0-0.4); Eosinophils % 2.4 % (0.1-12.0); Hematocrit 42.5 % (42.0-52.0); Hemoglobin 14.2 g/dL (14.1-18.0); Lymphocytes # 1.2 K/mm3 (0.7-4.5); Mean Corpuscular HGB Conc 33.4 g/dL (31.8-35.4); Mean Corpuscular Hemoglobin 31.1 pg (27.0-31.2); Mean Corpuscular Volume 93.3 fl (80-94); Mean Platelet Volume 8.2 fl (7.4-10.4); Monocytes # 0.5 K/mm3 (0.1-1.0); Monocytes % 9.2 % (1.7-9.3); Neutrophils # 3.3 K/mm3 (1.8-7.8); Neutrophils % 63.5 % (37.0-80.0); Platelet Count 256 K/mm3 (142-424); Red Blood Count 4.55 M/mm3 (4.60-6.20); Red Cell Distribution Width 13.7 % (11.5-17.5); White Blood Count 5.1 K/mm3 (4.8-10.8)
[2021-11-07 14:11] LABS: Alanine Aminotransferase 38 U/L (12-78); Albumin Level 4.5 g/dl (3.5-5.0); Albumin/Globulin Ratio 1.4 (1.1-1.8); Alkaline Phosphatase 72 U/L (38-126); Amylase 62 U/L (30-110); Anion Gap 14.6 mEq/L (5-15); Aspartate Amino Transferase 37 U/L (17-59); Bilirubin,Total 0.7 mg/dl (0.2-1.3); Blood Urea Nitrogen 8 mg/dl (9-20); Calcium 9.4 mg/dl (8.4-10.2); Carbon Dioxide 24 mmol/L (22.0-30.0); Chloride 97 mmol/L (98-107); Estimated Glomerular Filt Rate 132 ml/min (>60); GFR (African American) 159 ML/MIN (>60); Globulin 3.3 g/dL (1.3-3.2); Glucose 117 mg/dl (74-100); Lipase 55 U/L (23-300); Potassium 4.6 mmoL/L (3.5-5.1); Sodium 131 mmol/L (136-145); Total Protein,Serum 7.8 g/dl (6.3-8.2)
== END ==
LOC: RAD 11:59 → LAB 12:01
PROVIDERS: PCP Internal Medicine Adolescent Medicine; Visit Provider Internal Medicine Adolescent Medicine
DX: R10.84 Generalized abdominal pain (principal); R63.4 Abnormal weight loss
CPT/HCPCS: 36415; 80053; 82150; 83690; 85025

== ENCOUNTER → 2021-11-08 08:15 | Outpatient (CLI) | payer MEDICARE, BC, SELFPAY ==
--- NOTE | 2021-11-08 11:18 | CT_ITS ---
FINAL REPORT TECHNIQUE: Thin section axial images were obtained from the lung bases to the pubic symphysis without IV contrast. Oral contrast was administered. Sagittal and coronal reformatted images were submitted. This study was performed with techniques to keep radiation doses as low as reasonably achievable (ALARA). Individualized dose reduction techniques using automated exposure control or adjustment of mA and/or kV according to the patient's size were employed. CLINICAL HISTORY: ABDOMINAL PAIN GENERALIZED / WEIGHT LOSS, ORAL ONLY FINDINGS: There are no renal or ureteral stones. There is no hydronephrosis or perinephric stranding. The gallbladder is present. The remaining unenhanced solid abdominal organs are unremarkable. There is atherosclerotic disease. There may be mild wall thickening of the aorta. There is no evidence of small bowel obstruction. The appendix is normal. GI tract is without acute abnormality. There is no lymphadenopathy or ascites. The prostate is unremarkable. No acute osseous abnormality is identified. IMPRESSION: No acute intra-abdominal or intrapelvic abnormality. Reviewed, Interpreted and Dictated by Mercy Bowie MD Transcribed by Faisal Lopez Authenticated by Mercy Bowie MD on 11/08/2021 01:20:37 PM [facility]
[2021-11-12 14:06] LABS: H. pylori Stool Ag, EIA Negative (Negative)
== END ==
PROVIDERS: PCP Internal Medicine Adolescent Medicine; Visit Provider Internal Medicine Adolescent Medicine
DX: R10.84 Generalized abdominal pain (principal); R63.4 Abnormal weight loss
CPT/HCPCS: 74176; 87338

== ENCOUNTER → 2022-05-20 08:10 | Outpatient (CLI) | payer MEDICARE, BC, SELFPAY ==
[2022-05-20 09:33] LABS: Alanine Aminotransferase 45 U/L (12-78); Albumin Level 4.6 g/dl (3.5-5.0); Alkaline Phosphatase 90 U/L (38-126); Aspartate Amino Transferase 42 U/L (17-59); Bilirubin,Direct 0.1 mg/dl (0.0-0.4); Bilirubin,Indirect 0.9 mg/dL (0.0-0.9); Bilirubin,Unconjugated 0.9 mg/dL (0.0-1.1); Chol/HDL Ratio 3.8 (1-3.5); Cholesterol 115 mg/dl (140-200); HDL Cholesterol 30 mg/dl (40-60); Total Protein,Serum 7.9 g/dl (6.3-8.2); Triglycerides 121 mg/dl (30-150); VLDL Cholesterol 24 mg/dL (0-40)
--- NOTE | 2022-05-20 13:40 | CA_ITS ---
FINAL REPORT TECHNIQUE: Color Doppler, duplex Doppler and london scale sonography of the bilateral neck arterial vasculature was performed. Velocities were measured in the carotid arteries. Stenosis evaluation based on the validated velocity criteria. CLINICAL HISTORY: HAMLET,HTN FINDINGS: The peak systolic velocity of the right common carotid artery is 98 cm/s. The peak systolic velocity of the right internal carotid artery is 125 cm/s and end diastolic velocity 19 cm/s. The ICA/CCA ratio is 1.6. A moderate amount of plaque is present. The right external carotid artery is patent. The right vertebral artery is patent with antegrade flow. The peak systolic velocity of the left common carotid artery is 116 cm/s. The peak systolic velocity of the left internal carotid artery is 88 cm/s and end diastolic velocity 19 cm/s. The ICA/CCA ratio is 0.9. A small amount of plaque is present. The left external carotid artery is patent.The left vertebral artery is patent with antegrade flow. IMPRESSION: Less than 50% bilateral carotid stenosis. Bilateral patent vertebral arteries with antegrade flow. If indicated, CTA or MRA could further evaluate. Reviewed, Interpreted and Dictated by Joshua Murphy III, MD Transcribed by Faisal Lopez Authenticated and [facility]
== END ==
PROVIDERS: PCP Internal Medicine Adolescent Medicine; Visit Provider Physician Assistant
DX: E78.2 Mixed hyperlipidemia (principal); I10 Essential (primary) hypertension; I25.10 Atherosclerotic heart disease of native coronary artery without angina pectoris; I25.5 Ischemic cardiomyopathy; I65.23 Occlusion and stenosis of bilateral carotid arteries; Z95.1 Presence of aortocoronary bypass graft; R09.89 Other specified symptoms and signs involving the circulatory and respiratory systems
CPT/HCPCS: 36415; 80061; 80076; 93880

== ENCOUNTER 2022-12-18 08:13 | Emergency (ER) | payer MEDICARE, BC, SELFPAY ==
[2022-12-18] VITALS (10 sets, daily range): BP systolic 124–143; BP diastolic 50–67; PULSE 51–54; RESP 20; TEMP 37; O2SAT 98–100; BMI 28.1
--- NOTE | 2022-12-18 08:43 | XR_ITS ---
FINAL REPORT CLINICAL HISTORY: Dyspnea COMPARISON: 12/26/2017 FINDINGS: SINGLE-VIEW CHEST The heart size is normal. The patient is status post median sternotomy. The lungs are clear. There is no pneumothorax. IMPRESSION: No acute cardiopulmonary process. Reviewed, Interpreted and Dictated by Joshua Murphy III, MD Transcribed by Bibi Martínez Authenticated and [facility]
--- NOTE | 2022-12-18 08:44 | HMH.EDGENADL ---
Discharge Plan Disposition Patient Disposition: Home, Self-Care Prescriptions Prescriptions: No Action vitamin B complex [B Complex-Vitamin B12] tablet 1 tab PO DAILY cholecalciferol (vitamin D3) 2,000 unit capsule 2,000 unit PO DAILY lisinopril 20 mg tablet 20 mg PO DAILY Qty: 90 3RF bisoprolol fumarate 10 mg tablet 10 mg PO DAILY amlodipine 10 mg tablet 10 mg PO DAILY ezetimibe-simvastatin 10-80 mg tablet 1 tab PO DAILY aspirin 81 MG tablet,delayed release (DR/EC) 81 mg PO HS Referrals Follow up/Referrals: Henrique Quiñones MD [Primary Care Provider] - See instructions Clinical Impressions Clinical Impression: Acute hyponatremia Discharge ED Provider: Saji Salguero General Adult HPI General Chief complaint: Anxiety Stated complaint: Jittery/nervous, restlessness Time Seen by Provider: 12/18/22 08:36 Mode of Arrival: Ambulatory Source of Information: Patient Limitations: No Limitations Description of Symptoms (Recalled from ER Triage Doc. by RN): pt to ed c/o anxiety. pt states over the past week he has been jittery and has been unable to sleep. pt denies any new medications. History of Present Illness HPI narrative: 77-year-old white male presents with a believe that he is in congestive heart failure. The patient has not slept well for 2 weeks being concerned about his heart. He has seen cardiology in clinic about 3 weeks ago and was told that he needed a pacemaker. The patient reports he has just been very lethargic and worried about congestive heart failure since that time. He reports cardiac history of an [place] with a four-vessel CABG in 2005 and again with a stent in 2017. The symptoms prior to his stent was shortness of breath. He is medical allergies none. Related Data Home Medications Medication Instructions Recorded Confirmed cholecalciferol (vitamin D3) 50 2,000 unit PO DAILY Supplement 04/07/18 12/18/22 mcg (2,000 unit) capsule vitamin B complex (B 1 tab PO DAILY Supplement 04/07/18 12/18/22 Complex-Vitamin B12 tablet) aspirin 81 mg tablet,delayed 81 mg PO HS HEART/CIRCULATION 07/15/18 12/18/22 release amlodipine 10 mg tablet 10 mg PO DAILY per 12/18/22 12/18/22 bisoprolol fumarate 10 mg tablet 10 mg PO DAILY blood pressure 12/18/22 12/18/22 ezetimibe 10 mg-simvastatin 80 mg 1 tab PO DAILY Cholesterol 12/18/22 12/18/22 tablet Previous Rx's Medication Instructions Recorded lisinopril 20 mg tablet 20 mg PO DAILY BLOOD PRESSURE #90 11/14/22 tabs Allergies Allergy/AdvReac Type Severity Reaction Status Date / Time No Known Allergies Allergy Verified 11/14/22 13:26 [facility] Disclaimer: The information contained in this section may have been updated after the patient was seen, as this information can be updated by other users. Medical History Cardiomyopathy Hyperlipidemia Hypertension Left carotid bruit Surgical History History of coronary artery bypass graft Social History Smoking Status: Never smoker second hand exposure: No alcohol intake: current substance use type: denies use current occupational status: retired Travel in the last 8 weeks: Inside the [place] household members: spouse and children housing: house current occupational exposures/hazards: No caffeine: Yes ROS Obtained: Yes All systems reviewed & no additional complaints except as documented Physical Exam General General appearance: alert and anxious Head Head exam: atraumatic and normocephalic Eye Eye exam: Present normal appearance, PERRL and EOMI ENT ENT exam: Present normal exam Neck Neck exam: Present normal inspection Chest Chest inspection: Present normal inspection Respiratory Respiratory exam: Present normal lung sounds bilaterally Cardiov
--- NOTE | 2022-12-18 09:04 | ECG_ITS ---
APPROVED REPORT Exam: Resting ECG HR:53 bpm ECG Measurements Heart Rate 53 AXES NH 306 P 81 QRSd 114 QRS 63 QT 419 T -41 QTc 402 Conclusion SINUS BRADYCARDIA WITH FIRST DEGREE AV BLOCK LEFT VENTRICULAR HYPERTROPHY AND ST-T CHANGE [VOLTAGE CRITERIA PLUS ST/T ABNORMALITY] ABNORMAL ECG UNCONFIRMED REPORT Electronically signed by : Henrique Quiñones MD 12/19/2022 21:17:02
[2022-12-18 09:11] LABS: Basophils % 0.3 % (0.1-2.0); Eosinophils # 0.1 K/mm3 (0.0-0.4); Eosinophils % 1.8 % (0.1-12.0); Hematocrit 44.1 % (42.0-52.0); Hemoglobin 14.3 g/dL (14.1-18.0); Mean Corpuscular HGB Conc 32.3 g/dL (31.8-35.4); Mean Corpuscular Hemoglobin 29.6 pg (27.0-31.2); Mean Corpuscular Volume 91.6 fl (80-94); Mean Platelet Volume 7.1 fl (7.4-10.4); Monocytes # 0.3 K/mm3 (0.1-1.0); Monocytes % 6.1 % (1.7-9.3); Neutrophils # 3.9 K/mm3 (1.8-7.8); Neutrophils % 73.7 % (37.0-80.0); Platelet Count 230 K/mm3 (142-424); Red Blood Count 4.81 M/mm3 (4.60-6.20); Red Cell Distribution Width 13.7 % (11.5-17.5); White Blood Count 5.4 K/mm3 (4.8-10.8)
[2022-12-18 09:23] LABS: Alanine Aminotransferase 46 U/L (12-78); Albumin Level 4.8 g/dl (3.5-5.0); Albumin/Globulin Ratio 1.2 (1.1-1.8); Alkaline Phosphatase 80 U/L (38-126); Anion Gap 14.6 mEq/L (5-15); Aspartate Amino Transferase 43 U/L (17-59); Bilirubin,Total 1.2 mg/dl (0.2-1.3); Blood Urea Nitrogen 7 mg/dl (9-20); Calcium 9.2 mg/dl (8.4-10.2); Carbon Dioxide 26 mmol/L (22.0-30.0); Chloride 91 mmol/L (98-107); Creatinine Clearance Estimated 76 mL/min (50-200); Estimated Glomerular Filt Rate 131 ml/min (>60); GFR (African American) 159 ML/MIN (>60); Globulin 3.9 g/dL (1.3-3.2); Glucose 126 mg/dl (74-100); Potassium 4.6 mmoL/L (3.5-5.1); Sodium 127 mmol/L (136-145); Total Protein,Serum 8.7 g/dl (6.3-8.2)
[2022-12-18 09:35] LABS: NT Pro Brain Natriuretic Pep. 413 pg/mL (0-450)
[2022-12-18 09:38] LABS: Troponin I < 0.01 ng/ml (0.00-0.034)
--- NOTE | 2022-12-18 09:40 | PC.NURSE ---
rounded on pt, no needs at this time
[2022-12-18 09:53] LABS: Thyroid Stimulating Hormone 1.71 uIU/mL (0.465-4.68)
--- NOTE | 2022-12-18 10:50 | PC.NURSE ---
rounded on patient no needs at this time. Spouse at bedside
--- NOTE | 2022-12-18 12:08 | PC.NURSE ---
lab coming for repeat trop
[2022-12-18 12:52] LABS: Troponin I < 0.01 ng/ml (0.00-0.034)
[2022-12-18 12:53] LABS: Chloride 96 mmol/L (98-107)
[2022-12-18 12:54] LABS: Potassium 4.4 mmoL/L (3.5-5.1); Sodium 130 mmol/L (136-145)
[2022-12-18 12:56] LABS: Alanine Aminotransferase 41 U/L (12-78); Aspartate Amino Transferase 37 U/L (17-59); Blood Urea Nitrogen 5 mg/dl (9-20); Creatinine Clearance Estimated 76 mL/min (50-200); Estimated Glomerular Filt Rate 162 ml/min (>60); GFR (African American) 196 ML/MIN (>60)
[2022-12-18 12:57] LABS: Albumin Level 4.2 g/dl (3.5-5.0); Albumin/Globulin Ratio 1.2 (1.1-1.8); Alkaline Phosphatase 78 U/L (38-126); Anion Gap 12.4 mEq/L (5-15); Bilirubin,Total 1.2 mg/dl (0.2-1.3); Calcium 8.5 mg/dl (8.4-10.2); Carbon Dioxide 26 mmol/L (22.0-30.0); Globulin 3.5 g/dL (1.3-3.2); Glucose 103 mg/dl (74-100); Total Protein,Serum 7.7 g/dl (6.3-8.2)
--- NOTE | 2022-12-18 13:11 | PC.NURSE ---
ROUNDED ON PATIENT NO NEEDS AT THIS TIME
== END 2022-12-18 14:26 | disposition home or self-care (01) ==
PROVIDERS: Emergency Provider Emergency Medicine; PCP Internal Medicine Adolescent Medicine
DX: E87.1 Hypo-osmolality and hyponatremia (principal); R53.83 Other fatigue; I10 Essential (primary) hypertension; E78.5 Hyperlipidemia, unspecified; I42.9 Cardiomyopathy, unspecified; R00.1 Bradycardia, unspecified
CPT/HCPCS: 71045; 80053; 83880; 84443; 84484; 85025; 93005; 99285

== ENCOUNTER → 2022-12-25 12:00 | Outpatient (CLI) | payer MEDICARE, BC, SELFPAY | PROVIDERS: PCP Internal Medicine Adolescent Medicine; Visit Provider Physician Assistant | DX: I25.10 Atherosclerotic heart disease of native coronary artery without angina pectoris (principal); I42.8 Other cardiomyopathies; I10 Essential (primary) hypertension; I77.9 Disorder of arteries and arterioles, unspecified; E78.5 Hyperlipidemia, unspecified; Z95.1 Presence of aortocoronary bypass graft | CPT/HCPCS: 93225 ==

== ENCOUNTER → 2022-12-26 13:34 | Outpatient (CLI) | payer MEDICARE, BC, SELFPAY ==
[2022-12-26 14:14] LABS: Basophils % 0.3 % (0.1-2.0); Eosinophils # 0.1 K/mm3 (0.0-0.4); Eosinophils % 2.1 % (0.1-12.0); Hematocrit 42.8 % (42.0-52.0); Hemoglobin 14.1 g/dL (14.1-18.0); Lymphocytes # 1.1 K/mm3 (0.7-4.5); Lymphocytes % 21.2 % (10-50); Mean Corpuscular HGB Conc 32.8 g/dL (31.8-35.4); Mean Corpuscular Volume 91.4 fl (80-94); Mean Platelet Volume 7.3 fl (7.4-10.4); Monocytes # 0.4 K/mm3 (0.1-1.0); Monocytes % 8.1 % (1.7-9.3); Neutrophils # 3.5 K/mm3 (1.8-7.8); Neutrophils % 68.3 % (37.0-80.0); Platelet Count 226 K/mm3 (142-424); Red Blood Count 4.69 M/mm3 (4.60-6.20); Red Cell Distribution Width 13.6 % (11.5-17.5); White Blood Count 5.1 K/mm3 (4.8-10.8)
[2022-12-26 15:02] LABS: Alanine Aminotransferase 35 U/L (12-78); Alkaline Phosphatase 80 U/L (38-126); Anion Gap 16.9 mEq/L (5-15); Aspartate Amino Transferase 33 U/L (17-59); Bilirubin,Unconjugated 1.1 mg/dL (0.0-1.1); Blood Urea Nitrogen 8 mg/dl (9-20); Calcium 9.4 mg/dl (8.4-10.2); Carbon Dioxide 25 mmol/L (22.0-30.0); Chloride 94 mmol/L (98-107); Chol/HDL Ratio 3.1 (1-3.5); Cholesterol 109 mg/dl (140-200); Estimated Glomerular Filt Rate 110 ml/min (>60); GFR (African American) 133 ML/MIN (>60); Glucose 111 mg/dl (74-100); HDL Cholesterol 35 mg/dl (40-60); Magnesium 2.1 mg/dl (1.6-2.3); Potassium 4.9 mmoL/L (3.5-5.1); Sodium 131 mmol/L (136-145); Total Protein,Serum 8.3 g/dl (6.3-8.2); Triglycerides 80 mg/dl (30-150); VLDL Cholesterol 16 mg/dL (0-40)
[2022-12-26 15:13] LABS: Direct LDL Cholesterol 59.14 mg/dL (100-129)
[2022-12-26 15:17] LABS: Free T4 (Free Thyroxine) 1.52 ng/dl (0.78-2.19)
[2022-12-26 15:33] LABS: Thyroid Stimulating Hormone 1.93 uIU/mL (0.465-4.68)
[2022-12-26 15:35] LABS: Prostate Specific Ag Screen 0.3 ng/ml (0.0-4.0)
[2022-12-26 16:09] LABS: Vitamin B12 937 pg/mL (239-931)
[2022-12-30 15:11] LABS: Vitamin B1 135.1 nmol/L (66.5-200.0)
== END ==
PROVIDERS: Physician Assistant; PCP Internal Medicine Adolescent Medicine; Visit Provider Physician Assistant
DX: E78.5 Hyperlipidemia, unspecified (principal); I10 Essential (primary) hypertension; I25.10 Atherosclerotic heart disease of native coronary artery without angina pectoris; I77.9 Disorder of arteries and arterioles, unspecified; Z95.1 Presence of aortocoronary bypass graft; R73.09 Other abnormal glucose; Z12.5 Encounter for screening for malignant neoplasm of prostate; I42.8 Other cardiomyopathies
CPT/HCPCS: 36415; 80048; 80061; 80076; 82607; 82746; 83036; 83735; 84425; 84439; 84443; 85025; G0103

== ENCOUNTER → 2023-01-07 10:42 | Outpatient (CLI) | payer MEDICARE, BC, SELFPAY ==
--- NOTE | 2023-01-07 10:45 | CA_ITS ---
APPROVED REPORT EXAM: Comprehensive 2D, Doppler, and color-flow Echocardiogram Senior Accountant Cpa: Lana Eagle RVT Ht: 5 ft 8 in Wt: 185lbs BSA: 1.98 BP: 128/74 mmHg Indications: CM EF OF 40-50% ON 11/21/20,LV DYSFUNCTION,CAD,HTN,HLD 2D Dimensions LVOT 2.10 cm (M/F) 1.5-2.5 LA Volume 38.80 mL LA Volume Index 19.60 mL/m2 (M/F) 16-34 M-Mode Dimensions RVDd 3.50 cm (0.9-2.6) LA Diam 4.45 cm (1.9-4.0) LVDd 6.71 cm (3.5-5.7) Ao Diam 3.09 cm (2.0-3.7) LVDs 5.00 cm (3.5-5.7) IVSd 0.46 cm (0.6-1.1) PWd 0.36 cm (0.6-1.1) EF (Teich) 49.10% FS 25.50% EDV (Teich) 232.10 mL TAPSE 2.02 (<1.7) ESV (Teich) 118.20 mL LV Diastology E Decel Time 200.00 (160-240 msec) E/A Ratio 1.0 MED E' 7.00 (< 7 cm/sec) E'/MED E' Ratio 12.39 (>14) LAT E' 11.80 (<10 cm/sec) E/LAT E' Ratio 7.35 (>14) Aortic Valve LVOT Max 100.00 (70-110 cm/s) LVOT VTI 24.53 cm AoV Peak Twan. 230.00 (50-130 cm/s) AO Peak GR. 21.20 mmHg AO Mean GR. 10.80 (<5 mmHg) AO VTI 58.82 (18-25 cm) IRENE (VTI) 2.16 (2.5-4.5 cm2) Mitral Valve MV E Max Twan. 87.00 (40-130 cm/s) MV A Velocity 88.00 (40-130 cm/s) E/A Ratio 0.99 MV Decel. Time 200.00 (160-240 ms) MV Mean Gr. 1.70 (<2mmHg) MV PHT 59.00 ms Pulmonary Valve PV Peak Velocity 86.00 (50-150 cm/s) Left Ventricle Left ventricle is mildly dilated. There is mild reduction in LV systolic function. There is normal left ventricular wall thickness. There is mild global hypokinesis of the left ventricle. There is severe hypokinesis of the inferior and inferoseptal LV gimenez. The left ventricular diastolic function is normal. LVEF is 40-45%. Right Ventricle The right ventricle is normal size. The right ventricular systolic function is normal. Atria The left atrium size is normal. The right atrium size is normal. The inferior vena cava appears normal in size and collapsibility. There is no Doppler evidence of atrial septal defect Aortic Valve The aortic valve is mildly thickened. The aortic valve is trileaflet There is mild to moderate aortic stenosis. Peak velocity 2.3 m/s. Mean AV gradient 11 mmHg. Max AV gradient 21 mmHg. IRENE by continuity equation is 1.4 cm2. SVi is normal 38.3 ml/m2. DI=0.4. Trace aortic regurgitation. RVSP is normal. Mitral Valve The mitral valve is normal in structure. Mild mitral regurgitation. Tricuspid Valve The tricuspid valve leaflets are thin and pliable Mild tricuspid regurgitation. Pulmonic Valve The pulmonary valve is normal in structure. Trace pulmonic regurgitation. Great Vessels The aortic root is normal in size. Pericardium There is no pericardial effusion. Other Information Study Quality: Adequate Conclusion Mild reduction in LV systolic function (LVEF=40-45%) Severe inferior and inferoseptal LV wall hypokinesis Mild to moderate aortic stenosis Electronically signed by : Yuly Chapin, 01/07/2023 14:49:17
== END ==
PROVIDERS: PCP Internal Medicine Adolescent Medicine; Visit Provider Physician Assistant
DX: I25.10 Atherosclerotic heart disease of native coronary artery without angina pectoris; I42.8 Other cardiomyopathies; I10 Essential (primary) hypertension; E78.5 Hyperlipidemia, unspecified; I77.9 Disorder of arteries and arterioles, unspecified; Z95.1 Presence of aortocoronary bypass graft
CPT/HCPCS: 93306

== ENCOUNTER → 2023-05-19 09:35 | Outpatient (CLI) | payer MEDICARE, BC, SELFPAY ==
[2023-05-19 09:57] LABS: Basophils % 0.7 % (0.1-2.0); Eosinophils # 0.1 K/mm3 (0.0-0.4); Eosinophils % 2.1 % (0.1-12.0); Hematocrit 46.2 % (42.0-52.0); Hemoglobin 15.2 g/dL (14.1-18.0); Lymphocytes # 1.4 K/mm3 (0.7-4.5); Lymphocytes % 20.8 % (10-50); Mean Corpuscular HGB Conc 32.8 g/dL (31.8-35.4); Mean Corpuscular Hemoglobin 30.8 pg (27.0-31.2); Mean Corpuscular Volume 93.8 fl (80-94); Mean Platelet Volume 7.5 fl (7.4-10.4); Monocytes # 0.6 K/mm3 (0.1-1.0); Monocytes % 9.1 % (1.7-9.3); Neutrophils # 4.4 K/mm3 (1.8-7.8); Neutrophils % 67.4 % (37.0-80.0); Platelet Count 281 K/mm3 (142-424); Red Blood Count 4.93 M/mm3 (4.60-6.20); Red Cell Distribution Width 13.3 % (11.5-17.5); White Blood Count 6.5 K/mm3 (4.8-10.8)
[2023-05-19 10:46] LABS: Free T4 (Free Thyroxine) 1.48 ng/dl (0.78-2.19)
[2023-05-19 10:52] LABS: Chloride 97 mmol/L (98-107)
[2023-05-19 10:53] LABS: Potassium 4.9 mmoL/L (3.5-5.1); Sodium 133 mmol/L (136-145)
[2023-05-19 10:55] LABS: Alanine Aminotransferase 34 U/L (12-78); Alkaline Phosphatase 88 U/L (38-126); Anion Gap 14.9 mEq/L (5-15); Aspartate Amino Transferase 37 U/L (17-59); Bilirubin,Direct 0.1 mg/dl (0.0-0.4); Bilirubin,Indirect 0.6 mg/dL (0.0-0.9); Bilirubin,Total 0.7 mg/dl (0.2-1.3); Bilirubin,Unconjugated 0.6 mg/dL (0.0-1.1); Blood Urea Nitrogen 12 mg/dl (9-20); Carbon Dioxide 26 mmol/L (22.0-30.0); Estimated Glomerular Filt Rate 110 ml/min (>60); GFR (African American) 133 ML/MIN (>60)
[2023-05-19 10:56] LABS: Albumin Level 4.4 g/dl (3.5-5.0); Chol/HDL Ratio 3.9 (1-3.5); Cholesterol 105 mg/dl (140-200); Glucose 114 mg/dl (74-100); HDL Cholesterol 27 mg/dl (40-60); Magnesium 2.1 mg/dl (1.6-2.3); Triglycerides 75 mg/dl (30-150); VLDL Cholesterol 15 mg/dL (0-40)
[2023-05-19 11:35] LABS: Direct LDL Cholesterol 63.43 mg/dL (100-129)
== END ==
PROVIDERS: PCP Internal Medicine Adolescent Medicine; Visit Provider Physician Assistant
DX: E78.5 Hyperlipidemia, unspecified (principal); I10 Essential (primary) hypertension; I25.10 Atherosclerotic heart disease of native coronary artery without angina pectoris; I77.9 Disorder of arteries and arterioles, unspecified; R94.31 Abnormal electrocardiogram [ECG] [EKG]; Z95.1 Presence of aortocoronary bypass graft; I42.8 Other cardiomyopathies
CPT/HCPCS: 36415; 80048; 80061; 80076; 83735; 84439; 84443; 85025

== ENCOUNTER 2023-11-17 09:34 | Outpatient (CLI) | payer MEDICARE, BC, SELFPAY ==
[2023-11-17 09:59] LABS: Basophils % 0.5 % (0.1-2.0); Eosinophils # 0.2 K/mm3 (0.0-0.4); Eosinophils % 4.2 % (0.1-12.0); Hematocrit 46.1 % (42.0-52.0); Hemoglobin 15.1 g/dL (14.1-18.0); Lymphocytes # 1.1 K/mm3 (0.7-4.5); Lymphocytes % 21.5 % (10-50); Mean Corpuscular HGB Conc 32.7 g/dL (31.8-35.4); Mean Corpuscular Volume 94.7 fl (80-94); Mean Platelet Volume 7.8 fl (7.4-10.4); Monocytes # 0.4 K/mm3 (0.1-1.0); Monocytes % 7.9 % (1.7-9.3); Neutrophils # 3.4 K/mm3 (1.8-7.8); Neutrophils % 65.9 % (37.0-80.0); Platelet Count 182 K/mm3 (142-424); Red Blood Count 4.86 M/mm3 (4.60-6.20); White Blood Count 5.1 K/mm3 (4.8-10.8)
[2023-11-17 10:31] LABS: Alanine Aminotransferase 28 U/L (12-78); Albumin Level 4.5 g/dl (3.5-5.0); Alkaline Phosphatase 65 U/L (38-126); Anion Gap 14.6 mEq/L (5-15); Aspartate Amino Transferase 36 U/L (17-59); Bilirubin,Direct 0.1 mg/dl (0.0-0.4); Bilirubin,Indirect 1.1 mg/dL (0.0-0.9); Bilirubin,Total 1.2 mg/dl (0.2-1.3); Bilirubin,Unconjugated 1.1 mg/dL (0.0-1.1); Blood Urea Nitrogen 12 mg/dl (9-20); Calcium 9.4 mg/dl (8.4-10.2); Carbon Dioxide 26 mmol/L (22.0-30.0); Chloride 100 mmol/L (98-107); Chol/HDL Ratio 3.4 (1-3.5); Cholesterol 104 mg/dl (140-200); Estimated Glomerular Filt Rate 110 ml/min (>60); GFR (African American) 133 ML/MIN (>60); Glucose 101 mg/dl (74-100); HDL Cholesterol 31 mg/dl (40-60); Magnesium 2.1 mg/dl (1.6-2.3); Potassium 4.6 mmoL/L (3.5-5.1); Sodium 136 mmol/L (136-145); Total Protein,Serum 7.9 g/dl (6.3-8.2); Triglycerides 57 mg/dl (30-150); VLDL Cholesterol 11 mg/dL (0-40)
[2023-11-17 10:42] LABS: Direct LDL Cholesterol 62.31 mg/dL (100-129)
[2023-11-17 10:47] LABS: Free T4 (Free Thyroxine) 1.24 ng/dl (0.78-2.19)
[2023-11-17 11:02] LABS: Thyroid Stimulating Hormone 2.39 uIU/mL (0.465-4.68)
== END 2023-11-17 23:59 | disposition home or self-care (01) ==
LOC: LAB 09:36
PROVIDERS: PCP Internal Medicine Adolescent Medicine; Visit Provider Physician Assistant
DX: I11.9 Hypertensive heart disease without heart failure (principal); I25.10 Atherosclerotic heart disease of native coronary artery without angina pectoris; Z95.1 Presence of aortocoronary bypass graft; E78.2 Mixed hyperlipidemia; I25.5 Ischemic cardiomyopathy; I65.23 Occlusion and stenosis of bilateral carotid arteries; R94.31 Abnormal electrocardiogram [ECG] [EKG]; I44.0 Atrioventricular block, first degree; I44.1 Atrioventricular block, second degree
CPT/HCPCS: 36415; 80048; 80061; 80076; 83735; 84439; 84443; 85025

== ENCOUNTER 2024-09-22 08:29 | Outpatient (CLI) | payer MEDICARE, BC, SELFPAY ==
--- NOTE | 2024-09-22 | CA_ITS ---
APPROVED REPORT EXAM: Comprehensive 2D, Doppler, and color-flow Echocardiogram Labor Relations Supervisor: Krystina Snyder RT(R) Ht: 5 ft 10 in Wt: 175lbs BSA: 1.97 BP: 159/57 mmHg Indications: heart failure, CM, HTN, hyperlipidemia, LV dysfunction, CAD, CABG, first degree block, , hx of 40-45% ef on echo done 12/2022 2D Dimensions LA Volume 25.80 mL LA Volume Index 13.10 mL/m2 (M/F) 16-34 EF AP4 44.90 % GL Strain -16.5 % M-Mode Dimensions RVDd 2.21 cm (0.9-2.6) LA Diam 3.74 cm (1.9-4.0) LVDd 4.83 cm (3.5-5.7) LVDs 4.03 cm (3.5-5.7) IVSd 0.80 cm (0.6-1.1) PWd 0.53 cm (0.6-1.1) EF (Teich) 34.60% FS 16.60% EDV (Teich) 109.10 mL ESV (Teich) 71.30 mL LV Diastology E Decel Time 177 (160-240 msec) E/A Ratio 0.8 Aortic Valve IRENE Index 0.64 cm2/m2 AoV Peak Twan. 280.0 (50-130 cm/s) AO Peak GR. 31.30 mmHg AO Mean GR. 15.40 (<5 mmHg) AO VTI 71.0 (18-25 cm) IRENE (VTI) 1.29 (2.5-4.5 cm2) Mitral Valve MV E Max Twan. 84.0 (40-130 cm/s) MV A Velocity 103.0 (40-130 cm/s) E/A Ratio 0.81 MV PHT 52.0 ms Left Ventricle The left ventricle is normal size. Left ventricular systolic function is mildly decreased. There is increased LV wall thickness. There is mild global hypokinesis present. Grade 1 diastolic dysfunction is present. LVEF is 40-45%. Right Ventricle Right ventricle is mildly dilated. The right ventricular systolic function is normal. Atria The left atrium size is normal. The right atrium size is normal. There is no Doppler evidence of interatrial shunt. Aortic Valve The aortic valve is moderately thickened. Moderate aortic stenosis is present. IRENE by continuity equation is 1.3 cm per. Peak velocity 3.0 m/s. Mean AV gradient 15 mmHg. Max AV gradient 30 mmHg. Trace aortic regurgitation. Mitral Valve The mitral valve leaflets are mildly thickened. Mild mitral regurgitation. No evidence of mitral valve stenosis. Tricuspid Valve Tricuspid valve is grossly normal in structure and function. Trace tricuspid regurgitation. There is insufficient TR jet to estimate RVSP. Pulmonic Valve The pulmonary valve is normal in structure. Trace pulmonic regurgitation. Great Vessels The aortic root is normal in size. IVC is normal in size and collapses >50% with inspiration. Pericardium There is no pericardial effusion. Other Information Study Quality: Fair Conclusion Mildly reduced LV systolic function (LVEF 40-45%). Mild RV dilation with normal RV function. Moderate (IRENE by continuity equation is 1.3 cm per. Peak velocity 3.0 m/s. Mean AV gradient 15 mmHg. Max AV gradient 30 mmHg). Mild MR. Electronically signed by : Yuly Chapin MD 09/27/2024 00:16:44
== END 2024-09-22 23:59 | disposition home or self-care (01) ==
LOC: RT 08:29
PROVIDERS: PCP Internal Medicine Adolescent Medicine; Visit Provider Physician Assistant
DX: I51.7 Cardiomegaly (principal); I34.0 Nonrheumatic mitral (valve) insufficiency; I25.5 Ischemic cardiomyopathy; I25.10 Atherosclerotic heart disease of native coronary artery without angina pectoris; I50.20 Unspecified systolic (congestive) heart failure; I65.23 Occlusion and stenosis of bilateral carotid arteries; E78.2 Mixed hyperlipidemia
CPT/HCPCS: 93306

== ENCOUNTER 2024-10-21 09:02 | Outpatient (CLI) | payer MEDICARE, BC, SELFPAY ==
[2024-10-21 09:21] LABS: Basophils % 0.6 % (0.1-2.0); Eosinophils # 0.2 Kmm3 (0.0-0.4); Eosinophils % 3.9 % (0.1-12.0); Hemoglobin 14.6 g/dL (14.1-18.0); Immature Granulocytes # 0.01 10^3uL; Immature Granulocytes % 0.2 %; Lymphocytes # 1.1 K/mm3 (0.7-4.5); Lymphocytes % 22.5 % (10-50); Mean Corpuscular HGB Conc 33.2 g/dL (31.8-35.4); Mean Corpuscular Volume 93.4 fl (80-94); Monocytes # 0.5 K/mm3 (0.1-1.0); Monocytes % 9.4 % (1.7-9.3); Neutrophils # 3.1 K/mm3 (1.8-7.8); Neutrophils % 63.4 % (37.0-80.0); Nucleated Red Blood Cells # 0 10^3/uL; Nucleated Red Blood Cells % 0 %; Platelet Count 169 K/mm3 (142-424); Red Blood Count 4.71 M/mm3 (4.60-6.20); Red Cell Distribution Width 12.7 % (11.5-17.5); Red Cell Distribution Width-SD 44.1 fL; White Blood Count 4.9 K/mm3 (4.8-10.8)
[2024-10-21 09:57] LABS: Alanine Aminotransferase 52 U/L (12-78); Albumin Level 4.8 g/dl (3.5-5.0); Alkaline Phosphatase 69 U/L (38-126); Anion Gap 9.6 mEq/L (5-15); Aspartate Amino Transferase 53 U/L (17-59); Bilirubin,Direct 0.1 mg/dl (0.0-0.4); Bilirubin,Total 1.1 mg/dl (0.2-1.3); Bilirubin,Unconjugated 1.1 mg/dL (0.0-1.1); Blood Urea Nitrogen 12 mg/dl (9-20); Calcium 9.8 mg/dl (8.4-10.2); Carbon Dioxide 26 mmol/L (22.0-30.0); Chloride 104 mmol/L (98-107); Cholesterol 109 mg/dl (140-200); Estimated Glomerular Filt Rate 131 ml/min (>60); GFR (African American) 158 ML/MIN (>60); Glucose 96 mg/dl (74-100); HDL Cholesterol 36 mg/dl (40-60); Magnesium 2.4 mg/dl (1.6-2.3); Potassium 4.6 mmoL/L (3.5-5.1); Sodium 135 mmol/L (136-145); Total Protein,Serum 7.6 g/dl (6.3-8.2); Triglycerides 65 mg/dl (30-150); VLDL Cholesterol 13 mg/dL (0-40)
[2024-10-21 10:08] LABS: Direct LDL Cholesterol 51.37 mg/dL (100-129)
[2024-10-21 10:12] LABS: Free T4 (Free Thyroxine) 1.25 ng/dl (0.78-2.19)
[2024-10-21 10:16] LABS: Hemoglobin A1C 5.9 % (4.0-6.0)
== END 2024-10-21 23:59 | disposition home or self-care (01) ==
LOC: LAB 09:04
PROVIDERS: PCP Internal Medicine Adolescent Medicine; Visit Provider Physician Assistant
DX: E78.2 Mixed hyperlipidemia (principal); I11.0 Hypertensive heart disease with heart failure; I50.20 Unspecified systolic (congestive) heart failure; E87.1 Hypo-osmolality and hyponatremia; E86.0 Dehydration; E87.6 Hypokalemia; E83.51 Hypocalcemia; I65.23 Occlusion and stenosis of bilateral carotid arteries; I25.5 Ischemic cardiomyopathy; I25.10 Atherosclerotic heart disease of native coronary artery without angina pectoris; Z13.1 Encounter for screening for diabetes mellitus
CPT/HCPCS: 36415; 80048; 80061; 80076; 83036; 83735; 84439; 84443; 85025

== ENCOUNTER 2025-01-12 14:54 | Observation (INO) | payer MEDICARE, BC, SELFPAY ==
--- OUTSIDE RECORDS SUMMARY | 2024-12-31 09:45 | XMS_ITS | Encounter Summary ---
Author Organization [facility] Address [address] [place] [address] Care Team Providers Care Occasional Babysitter Name Role Phone Henrique Quiñones MD Primary Care Provider [phone] Encounter Details Date Type Department Care Team (Late st Contact Info) Description 12/31/2024 9:45 AM EDT Office Visit [facility] [address] [place] [address] Saji Phan MD [address] [address] Bilateral dry eyes (Primary Dx); [...] lesions Refraction Manifest Refraction (Auto) Sphere Cylinder [place] Dist VA Right -0.50 +0.75 010 20/20 [...] documented as of this encounter Care Teams Occasional Babysitter Relationship Specialty Start Date End Date Henrique Quiñones MD [address] [place] [address] PCP - General 10/27/20 documented as of this encounter
[2025-01-12] VITALS (16 sets, daily range): BP systolic 120–211; BP diastolic 59–90; PULSE 52–69; RESP 13–22; TEMP 36.4–36.7; O2SAT 95–100; BMI 26.4; BMI 26.2
--- OUTSIDE RECORDS SUMMARY | 2025-01-12 15:23 | XMS_ITS | Encounter Summary ---
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 - [employer] Social History Tobacco Use Types Packs/Day Years Used Date Smoking Tobacco: Never Assessed Sex and Gender Information Value Date Recorded Sex Assigned at Not on file Legal Sex Male 12:28 PM EDT Gender Identity Not on file Sexual Orientation Not on file documented as of this encounter Plan of Treatment Not on file documented as of this encounter Visit Diagnoses Not on filedocumented in this encounter Care Teams Industrial Property Appraiser Relationship Specialty Start Date End Date Provider, [place] [address] PCP - General 01/07/17 01/08/17 documented as of this encounter
--- OUTSIDE RECORDS SUMMARY | 2025-01-12 15:23 | XMS_ITS | Encounter Summary ---
Author Organization [facility] Address [address] [place] [address] Care Team Providers Care Air Transport Professionals Name Role Phone Henrique Quiñones MD Primary Care Provider [phone] Encounter Details Date Type Department Care Team (Latest Contact Info) Description 12/30/2024 Travel Social History Tobacco Use Types Packs/Day Years Used Date Smoking Tobacco: Former Sex and Gender Information Value Date Recorded Sex Assigned at Not on file Legal Sex Male 7:25 PM EDT Gender Identity Not on file Sexual Orientation Not on file documented as of this encounter Plan of Treatment Not on file documented as of this encounter Visit Diagnoses Not on filedocumented in this encounter Additional Health Concerns Assessment Noted Time A fall risk assessment has been complete d for the patient 10/24/2021 11:00 AM EDT documented as of this encounter Care Teams Air Transport Professionals Relationship Specialty Start Date End Date Henrique Quiñones MD [address] [place] [address] PCP - General 10/27/20 documented as of this encounter
--- OUTSIDE RECORDS SUMMARY | 2025-01-12 15:23 | XMS_ITS | Clinical Summary ---
Author Organization [facility] Address [address] [place] [address] Care Team Providers Care Red Cross Executive Director Name Role Phone Unavailable Primary Care Provider Unavailabl e Allergies Active Allergy Reactions Criticality Noted Date Comments Doxazosin Dizziness 03/06/2016 Lisinopril Cough 03/06/2016 Metoprolol Tartrate 03/06/2016 fatigue Medications aspirin 81 MG EC tablet Take 81 mg by mouth daily. Active ezetimibe-simvast atin (VYTORIN) 10-80 MG per tablet Take 1 tablet by mouth Every Night. 90 tablet 3 01/05/2018 Active bisoprolol (ZEBeta) 10 MG tabletIndications :Essential hypertension Take 1 tablet by mouth Daily. 90 tablet 3 01/05/2018 Active amLODIPine (NORVASC) 5 MG tablet Take 1 tablet by mouth Daily. 90 tablet 3 01/05/2018 Active benazepril-hydroc hlorthiazide (LOTENSIN HCT) 20-12.5 MG per tablet Take 1 tablet by mouth Daily. 90 tablet 3 02/10/2018 Active Active Problems Problem Noted Date Diagnosed Date Coronary artery disease 03/06/2016 Overview (03/06/2016): a. Acute inferior myocardial infarction, 10/09/2005. b. Attempted PTCA of the right coronary artery which was unsuccessful. c. Coronary artery bypass grafting from Dr. Morales Ignram - data deficient. d. LVEF 45% to 50% by echocardiogram, 11/29/2005. e. A 2D echocardiogram, 04/16/2006: i. Moderately reduced wall motion with an LVEF estimated at 45% to 50% with mild anterior septal hypokinesis. ii. Mitral valve appears normal with no evidence of prolapse or stenosis. Moderate MR. Moderate diastolic dysfunction based on the mitral and flow pattern. f. Echocardiogram, January 2009, Dr. Guzman: i. EF 40% to 45% with mild to moderate MR and moderate inferior septal hypokinesis. Hypertension 03/06/2016 Dyslipidemia 03/06/2016 Overview (03/06/2016): Current LDL is 59; inappropriate IU with history of coronary artery disease. Peptic ulcer disease 03/06/2016 History of acute inferior wall myocardial infarc tion Family History Medical History Relation Name Comments No Known Problems Father Heart attack Mother Hyperlipidemia Mother Hypertension Mother Relation Name Status Comments Father Mother Social History Tobacco Use Types Packs/Day Years Used Date Smoking Tobacco: Former Cigarettes Q uit: 1993 Smokeless Tobacco: Never Alcohol Use Standard Drinks/Week Comments Yes 0 (1 standard drink = 0.6 oz pur e alcohol) social Abuse Screen Answer Date Recorded Unsafe at Home or Work/School Not on file Feels Threatened by Someone? Not on file 02/2023 Does Anyone Keep You from Co ntacting Others or Doint Things Outside the Home? Not on file 03/24/2023 Physical Sign of Abuse Present Not on file 1 Housing Stability Answer Date Recorded Current Living Arrangements Not on file 02/2023 Potentially Unsafe Housing Conditions Not on karl e 03/24/2023 Family and Community Support Answer Jeffry e Recorded Help with Day-to-Day Activities Not on file 03/24/2023 Lonely or Isolated Not on file 03/24/2023 Employment Answer Date Recorded Do you want help finding or keeping work or a edgar b? Not on file 03/24/2023 Disabilities Answer Date Recorded Concentrating, Remembering, or Making Decisions Difficulty Not on file 03/24/2023 Doing Errands Independently Difficulty Not on fi le 03/24/2023 Education Answer Date Recorded Help with school or training? Not on file Preferred Language Not on file 03/24/2023 Sex and Gender Information Value Date Recorded Sex Assigned at Not on file Legal Sex Male 12:28 PM EDT Gender Identity Not on file Sexual Orientation Not on file Last Filed Vital Signs Vital Sign Reading Time Taken Comments Blood Pressure 144/71 02/10/2018 10:04 AM EDT Pulse 65 02/10/2018 10:04 AM EDT Temperature - - Respiratory Rate - - Oxygen Saturation - - Inhaled Oxygen Concentration - - Weight 87.5 kg (193 lb) 02/10/2018 10:04 AM EDT Height 170.2 cm (5' 7 ) 02/10/2018 10:04 AM EDT Body Mass Index 30.23 02/10/2018 10:04 AM EDT Plan of Treatment Health Maintenance Due Date Last Done Comments TDAP/TD VACCINES (1 - Tdap) 1966 COLOGUARD 1992 COLON CANCER SCREENING 5 YEAR SIGMOIDOSCOPY 1992 COLONOSCOPY 1992 [address]ER SCREENING 1992 CT COLONOGRAPHY 1992 FECAL OCCULT BLOOD TEST 1992 FIT Testing (1 year) 1992 Pneumococcal Vaccine 50+ (1 of 1 - PCV) 1997 ZOSTER VACCINE (1 of 2) 1997 ANNUAL PHYSICAL 01/07/2017 HEPATITIS C SCREENING 01/07/2017 RSV Vaccine - Adults (1 - 1-dose 75+ series) COVID-19 Vaccine ( - 2023- season) 2024 INFLUENZA VACCINE 03/16/2025 Insurance MEDICARE A & B [facility]
--- OUTSIDE RECORDS SUMMARY | 2025-01-12 15:23 | XMS_ITS | Clinical Summary ---
Author Organization [facility] Address [address] [place] [address] Care Team Providers Care Weir Fisherman Name Role Phone Henrique Quiñones MD Primary Care Provider [phone] Allergies Active Allergy Reactions Criticality Noted Date Comments Doxazosin Dizziness Low 03/06/2016 Lisinopril Cough Low 03/06/2016 Metoprolol Other - please docum ent in the comment field Low 03/06/2016 fatigue Medications amLODIPine (Norvasc) 10 MG tablet 10/13/2021 Active aspirin 81 MG EC tablet Take 81 mg by mouth 1 (one) time each day. Active ezetimibe-simva statin (Vytorin) 10-80 MG tablet 06/29/2021 Active cholecalciferol (Vitamin D-3) 25 MCG (1000 UT) tablet 12/25/2018 Active cetirizine (ZyrTEC) 10 MG tablet Take 10 mg by mouth 1 (one) time each day. 02/12/2021 Active bisoprolol (Zebeta) 10 MG tablet 06/29/2021 Active Cyanocobalamin (VITAMIN B-12 PO) 12/25/2018 Active Jardiance 10 MG Take 1 tablet by mouth daily. 11/02/2024 Active nitroglycerin (Nitrostat) 0.[address] 1 TABLET UNDER THE TONGUE AND ALLOW TO DISSOLVE EVERY 5 MINUTES NEEDED FOR CHEST PAIN; DO NOT EXCEED 3 DOSES PER EPISODE 10/21/2024 Active valsartan (Diovan) 160 MG tablet Take 1 tablet by mouth 2 times a day. 12/13/2024 Active bisoprolol (Zebeta) 5 MG tablet Take 1 tablet by mouth daily. 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 Acute inferior myocardial infarction, 10/09/2005. b. Attempted PTCA of the right coronary artery which was unsuccessful. c. Coronary artery bypass grafting from Dr. Morales Ingram - data deficient. d. LVEF 45% to [...] moderate MR and moderate inferior septal hypokinesis. Dyslipidemia 03/06/2016 Overview (10/24/2021): Current LDL is 59; inappropriate IU with history of coronary artery disease. Hypertension 03/06/2016 Peptic ulcer disease 03/06/2016 Encounters Date Type Department Care Team Description 12/31/2024 9:45 AM EDT Office Visit [facility] [address] [place] [phone] Saji Phan MD Bilateral dry eyes (Primary Dx); Pseudophakia, both eyes 12/31/2024 Travel 12/30/2024 Travel from Last 3 Months Family History Medical History Relation Name Comments Cardiac disorder Mother Cataracts Mother Relation Name Status Comments Mother Social History Tobacco Use Types Packs/Day Years Used Date Smoking Tobacco: Former Passive Smoke Exposure: Past Smokeless Tobacco: Never Tobacco Cessation:Counseling Given: Not Answered Sex and Gender Information Value Date Recorded Sex Assigned at Not on file Legal Sex Male 7:25 PM EDT Gender Identity Not on file Sexual Orientation Not on file Plan of Treatment Health Maintenance Due Date Last Done Comments [facility]-Depression Screening 1945 [facility]-Hepatitis C Screening 1945 [facility]-Medicare Annual Wellness (AWV) 1945 [facility]-Infant/Child/Adol SDOH Screenings 1945 [facility]- SDOH Screenings 1965 [facility]-Adult SDOH Screenings 1965 [facility]-DTaP,Tdap,and Td Vaccines (1 - Tdap) 1966 [facility]-Zoster Vaccines (1 of 2) 1997 [facility]-RSV Vaccine: 60+ Years or (1 - 1-dose 75+ series) 2022 [id number] Vaccine ( season) 2024 05/21/2021, 07/24/2020, 06/22/2020 [facility]-Influenza Vaccine (#1) 2025 04/23/2022 [facility]-Pneumococcal Vaccine: 50+ Years Completed 01/02/2023 HPV Vaccines Aged Out No longer eligi ble based on patient's age to complete this topic [facility]-HIB Vaccines Aged Out No longer e ligible based on patient's age to complete this topic [facility]-Hepatitis A Vaccines Aged Out No longer eligible based on patient's age to complete this topic [facility]-IPV Vaccines Aged Out No longer e ligible based on patient's age to complete this topic [facility]-Rotavirus Vaccines Aged Out No lo nger eligible based on patient's age to complete this topic Insurance MEDICARE ANTHEM Care Teams Weir Fisherman Relationship Specialty Start Date End Date Henrique Quiñones MD [address] [place] [address] PCP - General 10/27/20
--- OUTSIDE RECORDS SUMMARY | 2025-01-12 15:23 | XMS_ITS | Encounter Summary ---
Author Organization [facility] Address [address] [place] [address] Care Team Providers Care Director Of Medical Education Name Role Phone Henrique Quiñones MD Primary Care Provider [phone] Encounter Details Date Type Department Care Team (Latest Contact Info) Description 12/31/2024 Travel Social History Tobacco Use Types Packs/Day Years Used Date Smoking Tobacco: Former Passive Smoke Exposure: Past Smokeless Tobacco: Never Sex and Gender Information Value Date Recorded [...] documented as of this encounter Care Teams Director Of Medical Education Relationship Specialty Start Date End Date Henrique Quiñones MD [address] [place], [place] [address] PCP - General 10/27/20 documented as of this encounter
--- NOTE | 2025-01-12 15:25 | ED_ITS ---
Discharge Plan Disposition Patient Disposition: Admitted Condition: Good Clinical Impressions Clinical Impression: History of coronary artery bypass graft, Hypertensive emergency, HFrEF (heart failure with reduced ejection fraction), AV block, 1st degree Discharge ED Provider: Akira Zavala General Adult HPI <VARSHA Hankins - Last Filed: 01/12/25 18:17> General Chief complaint: Recheck/Abnormal Lab/Rx Stated complaint: Hypertensive Crisis Time Seen by Provider: 01/12/25 15:15 Mode of Arrival: Wheelchair Source of Information: Patient Description of Symptoms (Recalled from ER Triage Doc. by RN): Pt presents to the ED with hypertension that has been going on for 3-4 weeks. Denies chest pain and shortness of breath. pt reports that he has pressure in his head and behind his eyes and feels very nervous all the time. Pt was seen in the cardiology clinic before being sent to the ED with a blood pressure of 200/100s in the office. History of Present Illness HPI narrative: 79-year-old male presents emergency department with concern for elevated blood pressure, intermittent headache, that is located behind my eyes , as well as some lightheadedness and dizziness for the last month. Patient was seen in the cardiology office today, where her blood pressure was 200/100 in the cardiology office was recommended to come to the emergency department for further evaluation for hypertensive crisis/emergency. Was recently switched from what sounds like an PETER inhibitor to an angiotensin receptor yuliya, sounds like patient was switched around a month ago, around when his symptomatology is been going on for. Patient was switched from PETER inhibitor due to side effect concerning cough , patient denies any fever chills chest pain shortness of breath, denies any lightheadedness dizziness, does admit to a slight headache at this time that has improved from earlier today, denies any abdominal pain nausea vomiting constipation diarrhea no urinary type otology, patient is a former smoker, currently uses alcohol every other day, 1-2 beers every other day, denies any other drug use. Initial triage vitals are notable for blood pressure of 183/79, bradycardia 55 bpm otherwise unremarkable. Other past medical history is consistent with HFrEF, AV block, however is on beta-yuliya therapy for unknown reason, insomnia, LARISSA, CAD status post 1 stent placed, history of CABG, hyperlipidemia, carotid artery disease, history of unknown heart murmur. Please note that above description of symptoms, in this electronic medical record under categorization of recalled from ER triage doctor by RN are reflective of an initial nursing assessment, however, is not reflective of my full history and physical exam that was personally taken and clarified. Consequentially, this preceding description of symptoms, which may include the patient's categorized chief complaint in the EMR, do not reflect my personal clinical impression, and the ultimate description of history of present illness and patient stated complaints should be deferred to this section of the note. Unless stated otherwise or congruent with this section of the note, additional signs, symptoms, or incongruence should be interpreted as inaccurate with my clinical impression. Onset (ago): month(s) Related Data Home Medications ?Medication ?Instructions ?Recorded ?Confirmed aspirin 81 mg tablet,delayed 81 mg PO HS HEART/CIRCULA TION 07/15/18 01/12/25 release bisoprolol fumarate 10 mg tablet 5 mg PO BID 01/12/25 01/12/25 Previous Rx's ?Medication ?Instructions ?Recorded empagliflozin 10 mg tablet 10 mg PO DAILY #90 tabs 02/07 (Jardiance) ezetimibe 10 mg-simvastatin 80 mg 1 tab PO DAILY Loly sterol #90 tabs 10/21/24 tablet nitroglycerin 0.4 mg sublingual 0.4 mg sublingual Q5M PRN chest 10/21/24 tablet pain #25 tabs valsartan 160 mg tablet 160 mg PO BID #60 tabs 11/18 Allergies Allergy/AdvReac Type Severity Reaction Status Date / Time hydrochlorothiazide AdvReac Mild low sodium Verified 01/12/25 14:40 lisinopril AdvReac Mild cough Verified 01/12/25 14:40 [facility] <VARSHA Hankins - Last Filed: 01/12/25 18:17> [facility] Disclaimer: The information contained in this section may have been updated after the patient was seen, as this information can be updated by other users. Medical History HFrEF (heart failure with reduced ejection fraction) LV dysfunction Left carotid bruit Cardiomyopathy Hyperlipidemia Hypertension Surgical History History of coronary artery bypass graft Social History Smoking Status: Never smoker second hand exposure: No alcohol intake: current alcohol intake frequency: a few times a week substance use type: denies use current occupational status: retired Travel in the last 8 weeks?: Inside the [place] household members: spouse and children housing: house current occupational exposures/hazards: No caffeine: Yes Have you lived/traveled outside [place] in past 30 days?: No Contact w/someone who lives/traveled outside US past 30 days?: No Exposure to someone with infectious disease in past 14 days?: No Do you have a fever (greater than 100.4 F or 38 C)?: No Have you tested positive for COVID-19?: No Exposed to someone with COVID-19 in past 14 days?: No Do you have a sore throat?: No Do you have a cough?: No Do you have any weakness?: No Do you have any diarrhea?: No Are you experiencing any unusual bleeding?: No Do you have any muscle aches/pain?: No Do you have any abdominal pain?: No Are you experiencing loss of taste or smell?: No Other Medical History Have you received the Flu Vaccine for this season: No Have you received the Pneumonia Vaccine: Yes <VARSHA Hankins - Last Filed: 01/12/25 18:17> ROS Obtained: Yes All systems reviewed & no additional complaints except as documented Physical Exam <VARSHA Hankins - Last Filed: 01/12/25 18:17> General General appearance: alert and in no apparent distress Head Head exam: atraumatic and normocephalic Eye Eye exam: Present PERRL and EOMI ENT ENT exam: Present mucous membranes moist Neck Neck exam: Present normal inspection Chest Chest inspection: Present normal inspection and symmetric chest wall rise Respiratory Respiratory exam: Present normal lung sounds bilaterally; Absent respiratory distress Cardiovascular Cardiovascular exam: Present regular rate and normal rhythm Abdominal Exam Abdominal exam: Present soft; Absent tenderness, guarding or rebound Extremities Exam Extremities exam: Present normal inspection Neurological Exam Neurological exam: Present alert and oriented X3 Psychiatric Psychiatric exam: Present normal affect Skin Skin exam: Present warm and dry Medical Decision Making <VARSHA Hankins - Last Filed: 01/12/25 18:17> Medical Records Medical records reviewed: Yes I reviewed the patient's medical records. Screening: Per USPSTF and CDC recommendations, given the prevalence of disease in our region, it is our hospital?s policy to screen for HIV and viral Hepatitis for all patients aged 18 and over and those with ongoing risk factors. Jacob Inquiry Pt receiving controlled substance: No Jacob was queried for this patient: No Vital Signs: 01/12/25 15:00 01/12/25 15:12 01/12/25 15:22 Temperature 97.9 F Temperature Source Oral Pulse Rate 55 L Pulse Rate [Right] 54 L Respiratory Rate 14 14 14 Blood Pressure 183/79 H 183/79 H Blood Pressure [Right Arm] 183/79 H Blood Pressure Mean Blood Pressure Mean [Right Arm] 113 Blood Pressure Source Automatic Cuff Blood Pressure Source [Right Arm] Automatic Cuff Blood Pressure Position Supine Blood Pressure Position [Right Arm] Supine 02 Sat by Pulse Oximetry 100 100 Oxygen Delivery Method Room Air Room Air 01/12/25 16:00 01/12/25 16:31 01/12/25 16:47 Temperature Temperature Source Pulse Rate 52 L 52 L 59 L Pulse Rate [Right] Respiratory Rate 18 13 13 Blood Pressure 206/90 H 211/80 H 185/76 H Blood Pressure [Right Arm] Blood Pressure Mean 106 114 112 Blood Pressure Mean [Right Arm] Blood Pressure Source Blood Pressure Source [Right Arm] Blood Pressure Position Blood Pressure Position [Right Arm] 02 Sat by Pulse Oximetry 100 100 100 Oxygen Delivery Method 01/12/25 17:00 01/12/25 17:19 01/12/25 17:30 Temperature Temperature Source Pulse Rate 59 L 62 61 Pulse Rate [Right] Respiratory Rate 15 18 13 Blood Pressure 187/79 H 183/78 H 194/82 H Blood Pressure [Right Arm] Blood Pressure Mean 115 Blood Pressure Mean [Right Arm] Blood Pressure Source Blood Pressure Source [Right Arm] Blood Pressure Position Blood Pressure Position [Right Arm] 02 Sat by Pulse Oximetry 100 100 100 Oxygen Delivery Method 01/12/25 18:00 01/12/25 18:25 Temperature 98.0 F Temperature Source Pulse Rate 57 L Pulse Rate [Right] Respiratory Rate 14 18 Blood Pressure 190/74 H 190/74 H Blood Pressure [Right Arm] Blood Pressure Mean Blood Pressure Mean [Right Arm] Blood Pressure Source Blood Pressure Source [Right Arm] Blood Pressure Position Blood Pressure Position [Right Arm] 02 Sat by Pulse Oximetry 100 Oxygen Delivery Method Room Air Lab Data Lab results reviewed: Yes I reviewed the patient's lab results. Lab Results 01/12/25 15:11: WBC 4.6 L, RBC 4.47 L, Hgb 14.1, Hct 41.6 L, MCV 93.1, MCH 31.5 H, MCHC 33.9, RDW 13.1, Plt Count 191, MPV 9.6, Neut % (Auto) 62.3, Lymph % (Auto) 24.5, [place] % (Auto) 11.7 H, Eos % (Auto) 0.9, Baso % (Auto) 0.4, Neut # (Auto) 2.9, Lymph # (Auto) 1.1, [place] # (Auto) 0.5, Eos # (Auto) 0.0, Baso # (Auto) 0.0, PT 14.2 H, INR 1.30 H, Sodium 131 L, Potassium 4.3, Chloride 98, Carbon Dioxide 24, Anion Gap 13.3, BUN 7 L, Creatinine 0.70, Estimated Creat Clear 67, Estimated GFR 109, Est GFR ( Amer) 132, Glucose 111 H, Calcium 9.4, Magnesium 2.2, Total Bilirubin 1.6 H, AST 78 H, ALT 55, Alkaline Phosphatase 96, Troponin I < 0.01, NT-Pro-B Natriuret Pep 1230 H, Total Protein 8.0, Albumin 4.7, Globulin 3.3 H, Albumin/Globulin Ratio 1.4, HCV Ab ELENA w/Rflx PCR Qn Negative, HIV Ag/Ab Combo Qual Negative 01/12/25 15:11 01/12/25 15:11 Orders (Tests/Meds): ED MEDICATIONS Generic Name Dose Route Start Last Admin Trade Name Freq PRN Reason Stop Dose Admin Acetaminophen 650 mg 01/12/25 18:13 Acetaminophen 325mg Tab PO 02/11/25 18:12 Q4HP PRN Fever or Mild Pain (1-3) Hydrocodone Bitart/Acetaminophen 1 tab 01/12/25 18:13 Hydrocodone/Apap 5/325 Mg Tablet PO 02/11/25 18:12 Q4HP PRN Mild to Moderate Pain (1-6) Heparin Sodium (Porcine) 5,000 unit 01/12/25 21:00 Heparin Sodium 5,000 Unit/Ml Vial SUBCUT 02/11/25 20:59 TID VENKATESH Labetalol HCl 20 mg 01/12/25 18:13 Labetalol 20mg/4ml Syringe IV 02/11/25 18:12 ONCE PRN SBP > 160 Ondansetron HCl 4 mg 01/12/25 18:13 Ondansetron 4mg/2ml Vial IV 02/11/25 18:12 Q8HP PRN Nausea Discontinued Medications Generic Name Dose Route Start Last Admin Trade Name Freq PRN Reason Stop Dose Admin Hydralazine HCl 10 mg 01/12/25 15:54 01/12/25 16:27 Hydralazine 20mg/Ml Vial IV 01/12/25 15:55 10 mg ONCE ONE Administration Nifedipine 30 mg 01/12/25 17:44 01/12/25 18:07 Nifedipine 10mg Capsule PO 01/12/25 17:45 30 mg ONCE ONE Administration ORDERS Category Date Time Status CT head/brain wo con Stat Cat Scan 01/12/25 15:26 Completed XR chest portable Stat Exams 01/12/25 15:26 Completed Complete Blood Count Auto Diff Stat Lab 01/12/25 15:11 Completed Comprehensive Metabolic Panel Stat Lab 01/12/25 15:11 Completed HIV Combo Stat Lab 01/12/25 15:11 Completed Hepatitis C Ab Qual. W/ RFX Stat Lab 01/12/25 15:11 Completed Magnesium Stat Lab 01/12/25 15:11 Completed NT Pro Brain Natriuretic Pep. Stat Lab 01/12/25 15:11 Completed PT INR [Prothrombin Time INR] Stat Lab 01/12/25 15:11 Completed Troponin I Q3H Lab 01/12/25 18:30 Ordered Troponin I Q3H Lab 01/12/25 21:30 Ordered Troponin I Stat Lab 01/12/25 15:11 Completed Medical Decision Narrative: 79-year-old male presents the emergency department at the request of cardiology provider with concern of hypertensive urgency/emergency, with headache intermittent for the last month, with lightheadedness and dizziness at times, differential diagnose include but not limited to, hypertensive urgency, hypertensive emergency, cardiac arrhythmia, electrolyte disturbance, CHF exacerbation, tension headache, migraine headache, hypovolemia, cluster headache among others. I discussed this patient's case with the attending patient Dr. Zavala Will obtain basic laboratory studies, magnesium level proBNP PT/INR, troponin, x-ray of the chest, CT head without contrast and EKG. CMP notable for mild hyponatremia 131, AST is mildly elevated at 78 CBC unremarkable PT/INR is 14.2/1.3 respectively. Reexamination of the patient after CT imaging at around 3:52 PM, patient's systolic is 205, with symptoms, will give 10 mg IV hydralazine for hypertensive emergency/urgency. Initial troponin is within normal limits at less than 0.01, proBNP is not elevated 1230 I reviewed the patient's CT head without contrast on the corresponding radiologic report, no acute intracranial traumatic, atrophy and changes of chronic small vessel ischemia. I reviewed the patient's chest x-ray along the corresponding radiologic report, no acute process on this portable exam Recycling the patient's blood pressure at approximately 5:15 PM after 30 minutes after 10 mg IV hydralazine, patient did have some improvement from his systolic blood pressure now currently at 183. Unfortunately, examination of the patient approximately 5:30 PM, patient's systolic is now 194, still having some symptomatology. I will discuss this patient's case with cardiology for further recommendations. I discussed this patient's case with Dr. Rodas 5:40 PM over the telephone, he recommends admission for hypertensive emergency/urgency, he recommends giving 30 mg p.o. nifedipine here in the emergency department, I also discussed the patient's EKG that was performed today that showed some T wave inversion in the inferior leads, which is changed from his last EKG in 2022. He recommends admission for this, for further assessment on possible inferior RI, with new echocardiogram and cardiology consultation. Once again initial troponin within normal limits. I discussed this with the patient, at the bedside patient family agreed with current treatment plan/admission plan. Discussed this patient's case with the on-call hospitalist physician at approximately 5:48 PM, he is agreement with current admission plan/treatment plan for hypertensive emergency as well as cardiology consultation with new echocardiogram due to new T wave inversions noted on patient's EKG here today. <Akira Zavala MD - Last Filed: 01/12/25 18:53> Vital Signs: 01/12/25 15:00 01/12/25 15:12 01/12/25 15:22 Temperature 97.9 F Temperature Source Oral Pulse Rate 55 L Pulse Rate [Right] 54 L Respiratory Rate 14 14 14 Blood Pressure 183/79 H 183/79 H Blood Pressure [Right Arm] 183/79 H Blood Pressure Mean Blood Pressure Mean [Right Arm] 113 Blood Pressure Source Automatic Cuff Blood Pressure Source [Right Arm] Automatic Cuff Blood Pressure Position Supine Blood Pressure Position [Right Arm] Supine 02 Sat by Pulse Oximetry 100 100 Oxygen Delivery Method Room Air Room Air 01/12/25 16:00 01/12/25 16:31 01/12/25 16:47 Temperature Temperature Source Pulse Rate 52 L 52 L 59 L Pulse Rate [Right] Respiratory Rate 18 13 13 Blood Pressure 206/90 H 211/80 H 185/76 H Blood Pressure [Right Arm] Blood Pressure Mean 106 114 112 Blood Pressure Mean [Right Arm] Blood Pressure Source Blood Pressure Source [Right Arm] Blood Pressure Position Blood Pressure Position [Right Arm] 02 Sat by Pulse Oximetry 100 100 100 Oxygen Delivery Method 01/12/25 17:00 01/12/25 17:19 01/12/25 17:30 Temperature Temperature Source Pulse Rate 59 L 62 61 Pulse Rate [Right] Respiratory Rate 15 18 13 Blood Pressure 187/79 H 183/78 H 194/82 H Blood Pressure [Right Arm] Blood Pressure Mean 115 Blood Pressure Mean [Right Arm] Blood Pressure Source Blood Pressure Source [Right Arm] Blood Pressure Position Blood Pressure Position [Right Arm] 02 Sat by Pulse Oximetry 100 100 100 Oxygen Delivery Method 01/12/25 18:00 01/12/25 18:25 Temperature 98.0 F Temperature Source Pulse Rate 57 L Pulse Rate [Right] Respiratory Rate 14 18 Blood Pressure 190/74 H 190/74 H Blood Pressure [Right Arm] Blood Pressure Mean Blood Pressure Mean [Right Arm] Blood Pressure Source Blood Pressure Source [Right Arm] Blood Pressure Position Blood Pressure Position [Right Arm] 02 Sat by Pulse Oximetry 100 Oxygen Delivery Method Room Air Lab Data Lab Results 01/12/25 15:11: WBC 4.6 L, RBC 4.47 L, Hgb 14.1, Hct 41.6 L, MCV 93.1, MCH 31.5 H, MCHC 33.9, RDW 13.1, Plt Count 191, MPV 9.6, Neut % (Auto) 62.3, Lymph % (Auto) 24.5, [place] % (Auto) 11.7 H, Eos % (Auto) 0.9, Baso % (Auto) 0.4, Neut # (Auto) 2.9, Lymph # (Auto) 1.1, [place] # (Auto) 0.5, Eos # (Auto) 0.0, Baso # (Auto) 0.0, PT 14.2 H, INR 1.30 H, Sodium 131 L, Potassium 4.3, Chloride 98, Carbon Dioxide 24, Anion Gap 13.3, BUN 7 L, Creatinine 0.70, Estimated Creat Clear 67, Estimated GFR 109, Est GFR ( Amer) 132, Glucose 111 H, Calcium 9.4, Magnesium 2.2, Total Bilirubin 1.6 H, AST 78 H, ALT 55, Alkaline Phosphatase 96, Troponin I < 0.01, NT-Pro-B Natriuret Pep 1230 H, Total Protein 8.0, Albumin 4.7, Globulin 3.3 H, Albumin/Globulin Ratio 1.4, HCV Ab ELENA w/Rflx PCR Qn Negative, HIV Ag/Ab Combo Qual Negative Orders (Tests/Meds): ED MEDICATIONS Generic Name Dose Route Start Last Admin Trade Name Freq PRN Reason Stop Dose Admin Acetaminophen 650 mg 01/12/25 18:13 Acetaminophen 325mg Tab PO 02/11/25 18:12 Q4HP PRN Fever or Mild Pain (1-3) Hydrocodone Bitart/Acetaminophen 1 tab 01/12/25 18:13 Hydrocodone/Apap 5/325 Mg Tablet PO 02/11/25 18:12 Q4HP PRN Mild to Moderate Pain (1-6) Heparin Sodium (Porcine) 5,000 unit 01/12/25 21:00 Heparin Sodium 5,000 Unit/Ml Vial SUBCUT 02/11/25 20:59 TID VENKATESH Labetalol HCl 20 mg 01/12/25 18:13 Labetalol 20mg/4ml Syringe IV 02/11/25 18:12 ONCE PRN SBP > 160 Ondansetron HCl 4 mg 01/12/25 18:13 Ondansetron 4mg/2ml Vial IV 02/11/25 18:12 Q8HP PRN Nausea Discontinued Medications Generic Name Dose Route Start Last Admin Trade Name Freq PRN Reason Stop Dose Admin Hydralazine HCl 10 mg 01/12/25 15:54 01/12/25 16:27 Hydralazine 20mg/Ml Vial IV 01/12/25 15:55 10 mg ONCE ONE Administration Nifedipine 30 mg 01/12/25 17:44 01/12/25 18:07 Nifedipine 10mg Capsule PO 01/12/25 17:45 30 mg ONCE ONE Administration ORDERS Category Date Time Status CT head/brain wo con Stat Cat Scan 01/12/25 15:26 Completed XR chest portable Stat Exams 01/12/25 15:26 Completed Complete Blood Count Auto Diff Stat Lab 01/12/25 15:11 Completed Comprehensive Metabolic Panel Stat Lab 01/12/25 15:11 Completed HIV Combo Stat Lab 01/12/25 15:11 Completed Hepatitis C Ab Qual. W/ RFX Stat Lab 01/12/25 15:11 Completed Magnesium Stat Lab 01/12/25 15:11 Completed NT Pro Brain Natriuretic Pep. Stat Lab 01/12/25 15:11 Completed PT INR [Prothrombin Time INR] Stat Lab 01/12/25 15:11 Completed Troponin I Q3H Lab 01/12/25 18:30 Ordered Troponin I Q3H Lab 01/12/25 21:30 Ordered Troponin I Stat Lab 01/12/25 15:11 Completed ECG Data Tracing #1: Independently interpreted by me rate is 52, rhythm is regular, axis is normal, no ST elevation in anatomical contiguous leads, QTc 432. T wave inversions in inferior leads. Prolonged first-degree AV block. Medical Decision Narrative: 79-year-old male presents the emergency department at the request of cardiology provider with concern of hypertensive urgency/emergency, with headache intermittent for the last month, with lightheadedness and dizziness at times, differential diagnose include but not limited to, hypertensive urgency, hypertensive emergency, cardiac arrhythmia, electrolyte disturbance, CHF exacerbation, tension headache, migraine headache, hypovolemia, cluster headache among others. I discussed this patient's case with the attending patient Dr. Zavala Will obtain basic laboratory studies, magnesium level proBNP PT/INR, troponin, x-ray of the chest, CT head without contrast and EKG. CMP notable for mild hyponatremia 131, AST is mildly elevated at 78 CBC unremarkable PT/INR is 14.2/1.3 respectively. Reexamination of the patient after CT imaging at around 3:52 PM, patient's systolic is 205, with symptoms, will give 10 mg IV hydralazine for hypertensive emergency/urgency. Initial troponin is within normal limits at less than 0.01, proBNP is not elevated 1230 I reviewed the patient's CT head without contrast on the corresponding radiologic report, no acute intracranial traumatic, atrophy and changes of chronic small vessel ischemia. I reviewed the patient's chest x-ray along the corresponding radiologic report, no acute process on this portable exam Recycling the patient's blood pressure at approximately 5:15 PM after 30 minutes after 10 mg IV hydralazine, patient did have some improvement from his systolic blood pressure now currently at 183. Unfortunately, examination of the patient approximately 5:30 PM, patient's systolic is now 194, still having some symptomatology. I will discuss this patient's case with cardiology for further recommendations. I discussed this patient's case with Dr. Rodas 5:40 PM over the telephone, he recommends admission for hypertensive emergency/urgency, he recommends giving 30 mg p.o. nifedipine here in the emergency department, I also discussed the patient's EKG that was performed today that showed some T wave inversion in the inferior leads, which is changed from his last EKG in 2022. He recommends admission for this, for further assessment on possible inferior RI, with new echocardiogram and cardiology consultation. Once again initial troponin within normal limits. I discussed this with the patient, at the bedside patient family agreed with current treatment plan/admission plan. Discussed this patient's case with the on-call hospitalist physician at approximately 5:48 PM, he is agreement with current admission plan/treatment plan for hypertensive emergency as well as cardiology consultation with new echocardiogram due to new T wave inversions noted on patient's EKG here today. I was consulted by the ROBERTO, and we discussed the complexity of the problems being addressed. I approved the treatment and management plan for this patient's care in the emergency department, thus performing a substantive portion of the medical decision making. Akira Zavala MD Critical Care <VARSHA Hankins - Last Filed: 01/12/25 18:17> Critical Care Time Critical Care Time: No
--- NOTE | 2025-01-12 15:26 | CT_ITS ---
FINAL REPORT TECHNIQUE: Thin section axial images were obtained from skull base to vertex without contrast. Coronal reconstruction images were obtained from the axial data. Exam was performed using dose reduction techniques such as automated exposure control, adjustment of the mA and kV according to patient size, and use of iterative reconstruction technique. CLINICAL HISTORY: Headache, lightheadedness, hypertension FINDINGS: There is atrophy. No mass effect or midline shift. No intracranial hemorrhage. No hydrocephalus. Periventricular low density is likely related to changes of chronic small vessel ischemia. 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 The posterior fossa is without acute abnormality. The soft tissues are without acute abnormality. No acute osseous abnormality is identified. IMPRESSION: No acute intracranial abnormality. Atrophy and changes suggesting chronic small vessel ischemia. Reviewed, Interpreted and Dictated by Mercy Bowie MD Transcribed by Bibi Martínez Authenticated and [facility]
--- NOTE | 2025-01-12 15:26 | XR_ITS ---
FINAL REPORT CLINICAL HISTORY: SOA COMPARISON: 12/18/2022 FINDINGS: A portable view of the chest was obtained. The heart is normal in size. Patient is status post median sternotomy. The lungs are clear. There is no pleural effusion or pneumothorax. IMPRESSION: No acute process on this portable exam. Reviewed, Interpreted and Dictated by Mercy Bowie MD Transcribed by Bibi Martínez Authenticated and . [facility]
--- NOTE | 2025-01-12 15:36 | PC.NURSE ---
patient gone to CT at this time.
[2025-01-12 15:37] LABS: Alanine Aminotransferase 55 U/L (12-78); Albumin Level 4.7 g/dl (3.5-5.0); Albumin/Globulin Ratio 1.4 (1.1-1.8); Alkaline Phosphatase 96 U/L (38-126); Anion Gap 13.3 mEq/L (5-15); Aspartate Amino Transferase 78 U/L (17-59); Bilirubin,Total 1.6 mg/dl (0.2-1.3); Blood Urea Nitrogen 7 mg/dl (9-20); Calcium 9.4 mg/dl (8.4-10.2); Carbon Dioxide 24 mmol/L (22.0-30.0); Chloride 98 mmol/L (98-107); Creatinine Clearance Estimated 67 mL/min (50-200); Creatinine,Serum 0.70 mg/dl (0.66-1.25); Estimated Glomerular Filt Rate 109 ml/min (>60); GFR (African American) 132 ML/MIN (>60); Globulin 3.3 g/dL (1.3-3.2); Glucose 111 mg/dl (74-100); Magnesium 2.2 mg/dl (1.6-2.3); Potassium 4.3 mmoL/L (3.5-5.1); Sodium 131 mmol/L (136-145); Total Protein,Serum 8.0 g/dl (6.3-8.2)
[2025-01-12 15:42] LABS: Hematocrit 41.6 % (42.0-52.0); Hemoglobin 14.1 g/dL (14.1-18.0); Immature Granulocytes % 0.2 %; Mean Corpuscular HGB Conc 33.9 g/dL (31.8-35.4); Mean Corpuscular Hemoglobin 31.5 pg (27.0-31.2); Mean Corpuscular Volume 93.1 fl (80-94); Nucleated Red Blood Cells % 0 %; Platelet Count 191 K/mm3 (142-424); Red Blood Count 4.47 M/mm3 (4.60-6.20); Red Cell Distribution Width-SD 44.8 fL; White Blood Count 4.6 K/mm3 (4.8-10.8)
--- NOTE | 2025-01-12 15:46 | ECG_ITS ---
APPROVED REPORT Exam: Resting ECG HR:52 bpm ECG Measurements Heart Rate 52 AXES IN 316 P 68 QRSd 113 QRS 75 QT 452 T -74 QTc 432 Conclusion ELECTRONIC VENTRICULAR PACEMAKER ABNORMAL RHYTHM ECG No definitive pacer spikes, small T wave inversions inferior leads Electronically signed by : ROSALIA VERGARA, 01/12/2025 17:40:11
[2025-01-12 15:49] LABS: INR 1.30 (0.9-1.1); NT Pro Brain Natriuretic Pep. 1230 pg/mL (0-450); Prothrombin Time 14.2 seconds (10.1-12.5)
[2025-01-12 15:56] LABS: Troponin I < 0.01 ng/ml (0.00-0.034)
[2025-01-12] MEDS: HYDRALAZINE 20MG/ML VIAL 10 MG IV (16:27)
[2025-01-12 16:38] LABS: Hepatitis C Ab Qual. W/ RFX NEGATIVE (Negative)
--- NOTE | 2025-01-12 17:51 | PC.NURSE ---
called house for bed
--- NOTE | 2025-01-12 18:11 | PC.NURSE ---
report called to nurse on second floor
[2025-01-12 20:09] LABS: Troponin I < 0.01 ng/ml (0.00-0.034)
[2025-01-12] MEDS: IRBESARTAN 150MG TAB 150 MG PO (20:26)
[2025-01-12] MEDS: BISOPROLOL 5MG TABLET 5 MG PO (20:26)
[2025-01-12] MEDS: ASPIRIN EC 81MG TABLET 81 MG PO (20:26)
[2025-01-12] MEDS: HEPARIN SODIUM 5,000 UNIT/ML VIAL 5000 UNIT SUBCUT (20:27)
--- NOTE | 2025-01-12 22:48 | EXP.HP ---
History of Present Illness *Admission Date: 01/12/25 *Reason for visit:: Dizziness, headache, elevated blood pressures *History of present illness: Chucky Watts is a 79-year-old male with a medical history significant for hypertension, uncontrolled anxiety, HFmrEF, CABG/CAD who presented to the ED from cardiology's office for symptomatic hypertension. Patient states his blood pressure has been challenging to control, recently discontinued from lisinopril in October 2024 after 2 years of chronic nonproductive cough that resolved with discontinuation. He was started on valsartan 160 mg twice daily and continued on bisoprolol. However, patient states his blood pressures have not been controlled since being started on valsartan. He states his blood pressures are in the 170s to 180s at home. He recently followed up with cardiology who switched his bisoprolol to carvedilol but it does not look like patient has picked that up. 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 No evidence of hypertensive emergency on CBC, CMP. Dr. Rodas was consulted by the ED and recommended admission for symptomatic hypertensive urgency and to be given nifedipine 30 mg. This improved his blood pressure to 137/70. Case discussed with ED provider and decision made to admit patient for symptomatic hypertensive urgency. [facility] Disclaimer: The information contained in this section may have been updated after the patient was seen, as this information can be updated by other users. Medical History HFrEF (heart failure with reduced ejection fraction) LV dysfunction Left carotid bruit Cardiomyopathy Hyperlipidemia Hypertension Surgical History History of coronary artery bypass graft Social History (Updated 01/12/25 @ 20:37 by Paola Brown RN) Smoking Status: Never smoker second hand exposure: No alcohol intake: former substance use type: denies use current occupational status: retired Travel in the last 8 weeks?: Inside the [place] household members: spouse and children housing: house current occupational exposures/hazards: No caffeine: Yes Have you lived/traveled outside [place] in past 30 days?: No Contact w/someone who lives/traveled outside US past 30 days?: No Exposure to someone with infectious disease in past 14 days?: No Do you have a fever (greater than 100.4 F or 38 C)?: No Have you tested positive for COVID-19?: No Exposed to someone with COVID-19 in past 14 days?: No Do you have a sore throat?: No Do you have a cough?: No Do you have any weakness?: No Are you experiencing any nausea/vomitting?: No Do you have any diarrhea?: No Are you experiencing any unusual bleeding?: No Do you have any muscle aches/pain?: No Do you have any abdominal pain?: No Are you experiencing loss of taste or smell?: No Other Medical History Have you received the Flu Vaccine for this season: No Have you received the Pneumonia Vaccine: Yes Meds Home Medications and Allergies Home Medications ?Medication ?Instructions ?Recorded ?Confirmed ?Type aspirin 81 mg tablet,delayed 81 mg PO HS HEART/CIRCULATION 07/15/18 01/12/25 History release empagliflozin 10 mg tablet 10 mg PO DAILY #90 tabs 10/21/24 01/12/25 Rx (Jardiance) ezetimibe 10 mg-simvastatin 80 mg 1 tab PO DAILY Cholesterol #90 tabs 10/21/24 01/12/25 Rx tablet nitroglycerin 0.4 mg sublingual 0.4 mg sublingual Q5M PRN chest 10/21/24 01/12/25 Rx tablet pain #25 tabs valsartan 160 mg tablet 160 mg PO BID #60 tabs 11/18/24 01/12/25 Rx bisoprolol fumarate 10 mg tablet 5 mg PO BID 01/12/25 01/12/25 History New Prescriptions to Start Prescriptions: Allergies Allergy/AdvReac Type Severity Reaction Status Date / Time hydrochlorothiazide AdvReac Mild low sodium Verified 01/12/25 14:40 lisinopril AdvReac Mild cough Verified 01/12/25 14:40 Exam Data for Last 24 hours Vital signs and Labs for Last 24 Hours: Temp Pulse Resp BP Pulse Ox O2 Del Method 97.5 F L 69 16 137/70 97 Room Air 01/12/25 20:00 01/12/25 20:00 01/12/25 20:00 01/12/25 20:00 01/12/25 20:00 01/12/25 20:00 Laboratory Results - last 24 hr 01/12/25 15:11: WBC 4.6 L, RBC 4.47 L, Hgb 14.1, Hct 41.6 L, MCV 93.1, MCH 31.5 H, MCHC 33.9, RDW 13.1, Plt Count 191, MPV 9.6, Neut % (Auto) 62.3, Lymph % (Auto) 24.5, [place] % (Auto) 11.7 H, Eos % (Auto) 0.9, Baso % (Auto) 0.4, Neut # (Auto) 2.9, Lymph # (Auto) 1.1, [place] # (Auto) 0.5, Eos # (Auto) 0.0, Baso # (Auto) 0.0, PT 14.2 H, INR 1.30 H, Sodium 131 L, Potassium 4.3, Chloride 98, Carbon Dioxide 24, Anion Gap 13.3, BUN 7 L, Creatinine 0.70, Estimated Creat Clear 67, Estimated GFR 109, Est GFR ( Amer) 132, Glucose 111 H, Calcium 9.4, Magnesium 2.2, Total Bilirubin 1.6 H, AST 78 H, ALT 55, Alkaline Phosphatase 96, Troponin I < 0.01, NT-Pro-B Natriuret Pep 1230 H, Total Protein 8.0, Albumin 4.7, Globulin 3.3 H, Albumin/Globulin Ratio 1.4, HCV Ab ELENA w/Rflx PCR Qn Negative, HIV Ag/Ab Combo Qual Negative 01/12/25 19:18: Troponin I < 0.01 I & O for Last 24 hours: Intake & Output 01/09/25 01/10/25 01/11/25 01/12/25 23:59 23:59 23:59 23:59 Output Total Balance -3 / -3 Weight 75.614 kg Constitutional Constitutional: no acute distress *Routine HEENT Exam Head: Present normocephalic Eye: Present EOMI and PERRL ENT: Present mucous membranes moist *Routine Neck Exam Neck: Present supple; Absent lymphadenopathy *Routine Respiratory Exam Respiratory: Present CTA bilaterally *Routine Cardiovascular Exam Cardiovascular: Present RRR *Routine Abdominal Exam Abdominal: Present soft and normoactive bowel sounds; Absent tenderness *Routine Rectal Exam Rectal:: deferred *Routine Genitalia Exam Genitalia:: deferred *Routine Extremities Exam Extremities: Absent cyanosis, clubbing or edema *Routine Skin Exam Skin: Present warm; Absent rash *Routine Neurological Exam Neurological: Present alert and oriented X3 Assessment and Plan *Assessment and plan (1) HFrEF (heart failure with reduced ejection fraction): Status: Acute Category: Medical Code(s): I50.20 - Unspecified systolic (congestive) heart failure (2) Hypertensive urgency: Status: Acute Category: Medical Code(s): I16.0 - Hypertensive urgency Plan Chucky Watts is a 79-year-old male with a medical history significant for hypertension, uncontrolled anxiety, HFmrEF, aortic stenosis, CABG/CAD who presented to the ED from cardiology's office for symptomatic hypertension. Patient states his blood pressure has been challenging to control, recently discontinued from lisinopril in October 2024 after 2 years of chronic nonproductive cough that resolved with discontinuation. He was started on valsartan 160 mg twice daily and continued on bisoprolol. However, patient states his blood pressures have not been controlled since being started on valsartan. He states his blood pressures are in the 170s to 180s at home. He recently followed up with cardiology who switched his bisoprolol to carvedilol but it does not look like patient has picked that up. 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 No evidence of hypertensive emergency on CBC, CMP. Dr. Rodas was consulted by the ED and recommended admission for symptomatic hypertensive urgency and to be given nifedipine 30 mg. This improved his blood pressure to 137/70. Case discussed with ED provider and decision made to admit patient for symptomatic hypertensive urgency. #Symptomatic hypertensive urgency ? Presented with headache, dizziness, poor appetite over the past 2 weeks. Initial BP 200s over 80s. Improved after nifedipine IR 30 mg. ? Recently discontinued from lisinopril due to chronic cough, started on valsartan 160 mg twice daily. Patient states his blood pressures have been in the 170s to 180s. ? Patient states he feels quite anxious about time, no specific trigger for him. Thinks it may be contributing to his anxiety. ? No evidence of endorgan damage on evaluation, and blood work. ? Follow-up TSH, renal ultrasound. ? Started amlodipine 10 mg, continue valsartan 160 mg twice daily, bisoprolol 5 mg twice daily. Follow-up response. ? Consider hydrochlorothiazide, spironolactone #Uncontrolled anxiety ? Plan to discuss anxiolytic with patient in the morning. #HFmrEF #Aortic stenosis #CABG/CAD ? ECHO September 2024 shows LVEF 40 to 45%, moderate aortic stenosis. ? Currently euvolemic. Stable. ? Continue home aspirin, bisoprolol, Jardiance, valsartan. DNI DVT prophylaxis: Lovenox 40 mg
[2025-01-12 23:02] LABS: Troponin I < 0.01 ng/ml (0.00-0.034)
[2025-01-13] VITALS (8 sets, daily range): BP systolic 123–175; BP diastolic 57–78; PULSE 50–65; RESP 16–20; TEMP 36.6–36.7; O2SAT 94–98; BMI 26.6
--- NOTE | 2025-01-13 02:30 | US_ITS ---
FINAL REPORT CLINICAL HISTORY: Hypertension FINDINGS: RENAL ULTRASOUND Ultrasound images of the kidneys were obtained. The right kidney measures 11.7 cm in length. No hydronephrosis. Small cortical cyst measuring 10 mm. No renal stone. Normal cortical echogenicity and thickness. The left kidney measures 10.7 cm in length. No hydronephrosis, mass, or stone. Normal cortical echogenicity and thickness. IMPRESSION: Very small right renal cyst. Otherwise, morphologically normal kidneys. Reviewed, Interpreted and Dictated by Mercy Bowie MD Transcribed by Elizabeth Merchant Authenticated and [facility]
[2025-01-13 03:59] LABS: Troponin I < 0.01 ng/ml (0.00-0.034)
[2025-01-13 04:02] LABS: Thyroid Stimulating Hormone 2.37 uIU/mL (0.465-4.68)
[2025-01-13 06:21] LABS: Hematocrit 42.3 % (42.0-52.0); Hemoglobin 14.4 g/dL (14.1-18.0); Immature Granulocytes % 0.2 %; Mean Corpuscular HGB Conc 34.0 g/dL (31.8-35.4); Mean Corpuscular Hemoglobin 31.3 pg (27.0-31.2); Mean Corpuscular Volume 92.0 fl (80-94); Nucleated Red Blood Cells % 0 %; Platelet Count 182 K/mm3 (142-424); Red Blood Count 4.60 M/mm3 (4.60-6.20); Red Cell Distribution Width-SD 44.2 fL; White Blood Count 5.3 K/mm3 (4.8-10.8)
[2025-01-13 07:03] LABS: Anion Gap 10.0 mEq/L (5-15); Blood Urea Nitrogen 9 mg/dl (9-20); Calcium 9.0 mg/dl (8.4-10.2); Carbon Dioxide 23 mmol/L (22.0-30.0); Chloride 102 mmol/L (98-107); Creatinine Clearance Estimated 67 mL/min (50-200); Creatinine,Serum 0.60 mg/dl (0.66-1.25); Estimated Glomerular Filt Rate 131 ml/min (>60); GFR (African American) 158 ML/MIN (>60); Glucose 103 mg/dl (74-100); Potassium 4.0 mmoL/L (3.5-5.1); Sodium 131 mmol/L (136-145)
--- NOTE | 2025-01-13 07:52 | PC.NURSE ---
Pt. was admitted at change of shift last night with hypertensive emergency. Pt. was given 2 doses of an antihypertensive med in the ED and remained hypertensive. He got one dose of po meds in the ED and got admitted to the floor. Pt. C/o mild headache and some dizziness. Pt's blood pressure trended down overnight and is now normotensive. Pt. states that he feels better. Pt is alert and orientated x 4. Pt. on room air. Pt's at bedside overnight. Pt. on teletypesetter monitor. Pt. up to bathroom and the dizziness has resolved. Pt. did not sleep much overnight. Personal items and call pratt in reach. Bed in low and locked position. safety measures in place.
[2025-01-13] MEDS: BISOPROLOL 5MG TABLET 5 MG PO (08:35)
[2025-01-13] MEDS: AMLODIPINE 10MG TABLET 10 MG PO (08:35)
[2025-01-13] MEDS: IRBESARTAN 75MG TABLET 75 MG PO (08:36)
[2025-01-13] MEDS: EMPAGLIFLOZIN 10MG TABLET 10 MG PO (08:36)
--- NOTE | 2025-01-13 08:41 | HMH.PHAINT1 ---
Pharmacy Intervention Comments: MEDICATION RECONCILIATION COMPLETED ON PATIENT USING EXTERNAL FILL HISTORY FROM PHARMACY AND LIST FROM CARDIOLOGY OFFICE. -SHERINE LATHAM, SABIAHD
--- NOTE | 2025-01-13 09:16 | CA_ITS ---
APPROVED REPORT EXAM: Comprehensive 2D, Doppler, and color-flow Echocardiogram Senior Net Application Developer: TEN Rainey, RVS Ht: 5 ft 7 in Wt: 170lbs BSA: 1.89 BP: 137/70 mmHg Indications: Hypertensive emergency, Moderate , Mild AI, CABG, Fatigue 2D Dimensions Left Atrium 3.31 cm LA Volume 64.10 mL LA Volume Index 33.561403 mL/m2 (M/F) 16-34 EF AP4 34.40 % GL Strain -12.9 % M-Mode Dimensions RVDd 1.98 cm (0.9-2.6) LA Diam 3.72 cm (1.9-4.0) LVDd 6.36 cm (3.5-5.7) LVDs 4.46 cm (3.5-5.7) IVSd 0.94 cm (0.6-1.1) PWd 1.01 cm (0.6-1.1) EF (Teich) 48.60% EPSs 1.21 cm FS 24.90% EDV (Teich) 175.90 mL TAPSE 0.91 (<1.7) ESV (Teich) 90.50 mL LV Diastology E Decel Time 230 (160-240 msec) E/A Ratio 0.78 MED A' 10.20 cm/s LAT A' 9.00 cm/s Aortic Valve IRENE Index 0.56 cm2/m2 AoV Peak Twan. 286.0 (50-130 cm/s) AI PHT 769.00 ms AO Peak GR. 33.00 mmHg AO Mean GR. 16.90 (<5 mmHg) AO VTI 68.3 (18-25 cm) IRENE (VTI) 1.08 (2.5-4.5 cm2) Mitral Valve MV A Velocity 99.0 (40-130 cm/s) E/A Ratio 0.78 MV Mean Gr. 1.80 (<2mmHg) Pulmonary Valve CA End VMAX 136.0 cm/s Left Ventricle The left ventricle is normal size. The left ventricular systolic function is mildly reduced There is increased LV wall thickness. There is mild global hypokinesis. There is severe hypokinesis of the septal, anterior, and anteroseptal LV gimenez. Diastolic function is indeterminate. LVEF is 40-45%. Right Ventricle Right ventricle is mildly dilated. The right ventricular systolic function is normal. Atria Left atrium is mildly dilated. Right atrium is mildly dilated. There is no Doppler evidence of interatrial shunt. Aortic Valve The aortic valve is moderately thickened. Moderate aortic stenosis. Peak velocity 3.1 m/s. IRENE by continuity equation is 1.1 cm2. Mean AV gradient 19 mmHg. Max AV gradient 38 mmHg. Mild aortic regurgitation. Mitral Valve The mitral valve is normal in structure. Mild mitral regurgitation. Tricuspid Valve Tricuspid valve is grossly normal in structure and function. Trace tricuspid regurgitation. There is insufficient TR jet to estimate RVSP. Pulmonic Valve The pulmonary valve is normal in structure. Mild pulmonic regurgitation. Great Vessels The aortic root is normal in size. IVC is normal in size and collapses >50% with inspiration. Pericardium There is no pericardial effusion. Other Information Study Quality: Fair Conclusion Normal LV size with mild reduction in LV systolic function (LVEF 40-45%). severe hypokinesis of the septal, anterior, and anteroseptal LV gimenez. Mild RV dilation with normal RV function. Biatrial dilation. Moderate (peak velocity 3.1 m/s. IRENE by continuity equation is 1.1 cm2. Mean AV gradient 19 mmHg. Max AV gradient 38 mmHg). Mild AI, mild MR, mild PI. Electronically signed by : Yuly Chapin MD 01/13/2025 11:11:19
--- NOTE | 2025-01-13 10:09 | EXP.CARD.CON ---
History of Present Illness History of Present Illness Consult date: 01/13/25 Requesting physician: Saji Mcneil Chief complaint: Headache, visual disturbance, elevated BP History of present illness: Hospitalist note:Chucky Watts is a 79-year-old male with a medical history significant for hypertension, uncontrolled anxiety, HFmrEF, CABG/CAD who presented to the ED from cardiology's office for symptomatic hypertension. Patient states his blood pressure has been challenging to control, recently discontinued from lisinopril in October 2024 after 2 years of chronic nonproductive cough that resolved with discontinuation. He was started on valsartan 160 mg twice daily and continued on bisoprolol. However, patient states his blood pressures have not been controlled since being started on valsartan. He states his blood pressures are in the 170s to 180s at home. He recently followed up with cardiology who switched his bisoprolol to carvedilol but it does not look like patient has picked that up. 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 No evidence of hypertensive emergency on CBC, CMP. Dr. Rodas was consulted by the ED and recommended admission for symptomatic hypertensive urgency and to be given nifedipine 30 mg. This improved his blood pressure to 137/70. Case discussed with ED provider and decision made to admit patient for symptomatic hypertensive urgency. Cardiology note:Mr. Watts is a 79-year-old white female with past medical history of coronary artery disease including CABG in 2005, aortic stenosis mild to moderate 2024, hypertension, HFrEF with a known ejection fraction of 40 to 45% as of 2024, hyperlipidemia and daily beer drinker presented to emergency department from cardiology clinic with complaints of elevated blood pressure, headaches, visual disturbances. Of note patient reports he has recently been having a difficult time controlling his blood pressure and has had medication changes which have been unsuccessful. Patient was ultimately admitted for hypertensive emergency and started on nifedipine 30 mg which did improve blood pressure. Creatinine this morning is stable at 0.6. Serial troponins are negative. TSH is normal. A renal ultrasound was performed which showed a very small right renal cyst. Renal artery duplex pending. Repeat echo pending. This morning patient's blood pressure is 139/68. [facility] Disclaimer: The information contained in this section may have been updated after the patient was seen, as this information can be updated by other users. Medical History HFrEF (heart failure with reduced ejection fraction) LV dysfunction Left carotid bruit Cardiomyopathy Hyperlipidemia Hypertension Surgical History History of coronary artery bypass graft Social History (Updated 01/12/25 @ 20:37 by Paola Brown RN) Smoking Status: Never smoker second hand exposure: No alcohol intake: former substance use type: denies use current occupational status: retired Travel in the last 8 weeks?: Inside the [place] household members: spouse and children housing: house current occupational exposures/hazards: No caffeine: Yes Review of Systems Review of Systems Review of systems:: pertinent systems reviewed and negative unless documented below Eyes Comments: headache Exam Data for Last 24 hours Vital signs and Labs for Last 24 Hours: Temp Pulse Resp BP Pulse Ox O2 Del Method 97.9 F 57 L 16 139/68 97 Room Air 01/13/25 08:00 01/13/25 08:00 01/13/25 08:00 01/13/25 08:00 01/13/25 08:00 01/13/25 09:00 Laboratory Results - last 24 hr 01/12/25 15:11: WBC 4.6 L, RBC 4.47 L, Hgb 14.1, Hct 41.6 L, MCV 93.1, MCH 31.5 H, MCHC 33.9, RDW 13.1, Plt Count 191, MPV 9.6, Neut % (Auto) 62.3, Lymph % (Auto) 24.5, [place] % (Auto) 11.7 H, Eos % (Auto) 0.9, Baso % (Auto) 0.4, Neut # (Auto) 2.9, Lymph # (Auto) 1.1, [place] # (Auto) 0.5, Eos # (Auto) 0.0, Baso # (Auto) 0.0, PT 14.2 H, INR 1.30 H, Sodium 131 L, Potassium 4.3, Chloride 98, Carbon Dioxide 24, Anion Gap 13.3, BUN 7 L, Creatinine 0.70, Estimated Creat Clear 67, Estimated GFR 109, Est GFR ( Amer) 132, Glucose 111 H, Calcium 9.4, Magnesium 2.2, Total Bilirubin 1.6 H, AST 78 H, ALT 55, Alkaline Phosphatase 96, Troponin I < 0.01, NT-Pro-B Natriuret Pep 1230 H, Total Protein 8.0, Albumin 4.7, Globulin 3.3 H, Albumin/Globulin Ratio 1.4, HCV Ab ELENA w/Rflx PCR Qn Negative, HIV Ag/Ab Combo Qual Negative 01/12/25 19:18: Troponin I < 0.01 01/12/25 22:32: Troponin I < 0.01 01/13/25 03:10: Troponin I < 0.01, TSH 2.37 01/13/25 05:52: WBC 5.3, RBC 4.60, Hgb 14.4, Hct 42.3, MCV 92.0, MCH 31.3 H, MCHC 34.0, RDW 13.2, Plt Count 182, MPV 9.4, Neut % (Auto) 70.7, Lymph % (Auto) 16.3, [place] % (Auto) 10.5 H, Eos % (Auto) 1.9, Baso % (Auto) 0.4, Neut # (Auto) 3.7, Lymph # (Auto) 0.9, [place] # (Auto) 0.6, Eos # (Auto) 0.1, Baso # (Auto) 0.0, Sodium 131 L, Potassium 4.0, Chloride 102, Carbon Dioxide 23, Anion Gap 10.0, BUN 9 D, Creatinine 0.60 L, Estimated Creat Clear 67, Estimated GFR 131, Est GFR ( Amer) 158, Glucose 103 H, Calcium 9.0 I & O for Last 24 hours: Intake & Output 01/10/25 01/11/25 01/12/25 01/13/25 23:59 23:59 23:59 23:59 Output Total Balance - / -3 Weight 166 lb 11.2 oz 170 lb Constitutional Constitutional: no acute distress *Routine Respiratory Exam Respiratory: Present CTA bilaterally and symmetric chest movement *Routine Cardiovascular Exam Cardiovascular: Present RRR, Normal S1 and Normal S2 *Routine Abdominal Exam Abdominal: Present soft and normoactive bowel sounds; Absent tenderness *Routine Extremities Exam Extremities: Present full ROM and normal capillary refill; Absent edema *Routine Skin Exam Skin: Present intact, dry and warm Detailed Neck Exam: Thyroids Thyroid: Absent bruit Meds Home Medications and Allergies Home Medications ?Medication ?Instructions ?Recorded ?Confirmed ?Type aspirin 81 mg tablet,delayed 81 mg PO HS 07/15/18 01/12/25 History release empagliflozin 10 mg tablet 10 mg PO DAILY #90 tabs 10/21/24 01/12/25 Rx (Jardiance) ezetimibe 10 mg-simvastatin 80 mg 1 tab PO DAILY Cholesterol #90 tabs 10/21/24 01/12/25 Rx tablet nitroglycerin 0.4 mg sublingual 0.4 mg sublingual Q5M PRN chest 10/21/24 01/12/25 Rx tablet pain #25 tabs valsartan 160 mg tablet 160 mg PO BID #60 tabs 11/18/24 01/12/25 Rx bisoprolol fumarate 10 mg tablet 5 mg PO BID 01/12/25 01/12/25 History New Prescriptions to Start Prescriptions: Allergies Allergy/AdvReac Type Severity Reaction Status Date / Time hydrochlorothiazide AdvReac Mild low sodium Verified 01/12/25 14:40 lisinopril AdvReac Mild cough Verified 01/12/25 14:40 Assessment and Plan *Assessment and plan (1) HFrEF (heart failure with reduced ejection fraction): Status: Acute Category: Medical Code(s): I50.20 - Unspecified systolic (congestive) heart failure (2) CAD (coronary artery disease): Status: Chronic Qualifiers: Associated angina: without angina Coronary Disease-Associated Artery/Lesion type: [place] artery [place] vs. transplanted heart: [place] heart Qualified Code(s): I25.10 - Atherosclerotic heart disease of [place] coronary artery without angina pectoris Category: Medical Code(s): I25.10 - Atherosclerotic heart disease of [place] coronary artery without angina pectoris (3) Hypertension: Status: Chronic Qualifiers: Hypertension type: essential hypertension Qualified Code(s): I10 - Essential (primary) hypertension Category: Medical Code(s): I10 - Essential (primary) hypertension Plan HTN Renal ultrasound shows a small right renal cyst Renal artery ultrasound: No evidence of significant renal artery stenosis. Creatinine 0.6 Continue bisoprolol 5 mg p.o. twice daily, amlodipine 10 mg p.o. daily, irbesartan 75 mg p.o. twice daily and nifedipine 30 mg p.o. daily History of coronary artery disease History of CABG Denies chest pain Troponins negative Continue aspirin and statin History of heart failure with reduced ejection fraction No signs of volume overload at this time Echo for 2024 shows a EF of 40 to 45%, mild RV dilation with normal RV function and moderate AAS. Repeat shows an EF of 40 to 45% with moderate AAS. New wall motion abnormalities noted compared to Echo 09/2023 Continue Jardiance, beta-yuliya, irbesartan. CV summary 01/13/2025: Blood pressure is well-controlled this morning. Renal artery duplex negative. EF remains the same but upon review by Dr. bonilla new wall motion abnormalities are present. Patient denies chest pain or soa and trops are negative. Would recomend outpatient ischemic evalution. Patient is cv stable for dc home.
--- NOTE | 2025-01-13 10:14 | CA_ITS ---
FINAL REPORT CLINICAL HISTORY: HTN COMPARISON: None FINDINGS: Aorta velocity: 105.5 cm/sec Right kidney: 12.9 cm. No evidence of hydronephrosis or mass. Right intrarenal RI: 0.31-0.66 Right renal artery velocity: 111 cm/sec. Right RAR (Renal artery-Aortic Ratio): 1.05 Left Kidney: 9.7 cm. No evidence of hydronephrosis or mass. Left intrarenal RI: 0.58-0.69 Left renal artery velocity: 117 cm/sec. Left RAR (Renal Artery-Aortic Ratio): 1.1 IMPRESSION: No evidence of significant renal artery stenosis. CT angiogram or postcontrast MR angiogram would be more sensitive for evaluation of possible renal artery stenosis. Reviewed, Interpreted and Dictated by Mercy Bowie MD Transcribed by Brooklynn Dawson Authenticated and [facility]
--- NOTE | 2025-01-13 13:35 | EXP.DC.SUM ---
General Admission date:: 01/12/25 Discharge date: 01/13/25 HPI HPI HPI: Chucky Watts is a 79-year-old male with a medical history significant for hypertension, uncontrolled anxiety, HFmrEF, CABG/CAD who presented to the ED from cardiology's office for symptomatic hypertension. Patient states his blood pressure has been challenging to control, recently discontinued from lisinopril in October 2024 after 2 years of chronic nonproductive cough that resolved with discontinuation. He was started on valsartan 160 mg twice daily and continued on bisoprolol. However, patient states his blood pressures have not been controlled since being started on valsartan. He states his blood pressures are in the 170s to 180s at home. He recently followed up with cardiology who switched his bisoprolol to carvedilol but it does not look like patient has picked that up. He presented to [facility] office today with symptoms of headache, dizziness, decreased appetite with BP in 200s over 80s and was advised to come to the ED. No evidence of hypertensive emergency on CBC, CMP. Dr. Rodas was consulted by the ED and recommended admission for symptomatic hypertensive urgency and to be given nifedipine 30 mg. This improved his blood pressure to 137/70. Case discussed with ED provider and decision made to admit patient for symptomatic hypertensive urgency. Hospital Course Hospital Course Hospital Course: Chucky Watts is a 79-year-old male with a medical history significant for hypertension, uncontrolled anxiety, HFmrEF, aortic stenosis, CABG/CAD who presented to the ED from cardiology's office for symptomatic hypertension. Patient states his blood pressure has been challenging to control, recently discontinued from lisinopril in October 2024 after 2 years of chronic nonproductive cough that resolved with discontinuation. He was started on valsartan 160 mg twice daily and continued on bisoprolol. However, patient states his blood pressures have not been controlled since being started on valsartan. He states his blood pressures are in the 170s to 180s at home. He recently followed up with cardiology who switched his bisoprolol to carvedilol but it does not look like patient has picked that up. He presented to [facility] office today with symptoms of headache, dizziness, decreased appetite with BP in 200s over 80s and was advised to come to the ED. No evidence of hypertensive emergency on CBC, CMP. Dr. Rodas was consulted by the ED and recommended admission for symptomatic hypertensive urgency and to be given nifedipine 30 mg. This improved his blood pressure to 137/70. Case discussed with ED provider and decision made to admit patient for symptomatic hypertensive urgency. # hypertensive urgency - resolved Continue bisoprolol 5 mg p.o. twice daily, amlodipine 10 mg p.o. daily, irbesartan 75 mg p.o. twice daily and nifedipine 30 mg p.o. daily Echo for 2024 shows a EF of 40 to 45%, mild RV dilation with normal RV function and moderate AAS. Repeat shows an EF of 40 to 45% with moderate AAS. New wall motion abnormalities noted compared to Echo 09/2023 Continue Jardiance, beta-yuliya, irbesartan. per cardiology - Renal artery duplex negative. EF remains the same but upon review by Dr. bonilla new wall motion abnormalities are present. Patient denies chest pain or soa and trops are negative. Would recomend outpatient ischemic evalution. Patient is cv stable for dc home. patient and family agrees with DC plan Exam Data for Last 24 hours Vital signs and Labs for Last 24 Hours: Temp Pulse Resp BP Pulse Ox O2 Del Method 98 F 59 L 16 175/78 H 98 Room Air 01/13/25 12:00 01/13/25 12:00 01/13/25 12:00 01/13/25 12:00 01/13/25 12:00 01/13/25 12:00 Laboratory Results - last 24 hr 01/12/25 15:11: WBC 4.6 L, RBC 4.47 L, Hgb 14.1, Hct 41.6 L, MCV 93.1, MCH 31.5 H, MCHC 33.9, RDW 13.1, Plt Count 191, MPV 9.6, Neut % (Auto) 62.3, Lymph % (Auto) 24.5, [place] % (Auto) 11.7 H, Eos % (Auto) 0.9, Baso % (Auto) 0.4, Neut # (Auto) 2.9, Lymph # (Auto) 1.1, [place] # (Auto) 0.5, Eos # (Auto) 0.0, Baso # (Auto) 0.0, PT 14.2 H, INR 1.30 H, Sodium 131 L, Potassium 4.3, Chloride 98, Carbon Dioxide 24, Anion Gap 13.3, BUN 7 L, Creatinine 0.70, Estimated Creat Clear 67, Estimated GFR 109, Est GFR ( Amer) 132, Glucose 111 H, Calcium 9.4, Magnesium 2.2, Total Bilirubin 1.6 H, AST 78 H, ALT 55, Alkaline Phosphatase 96, Troponin I < 0.01, NT-Pro-B Natriuret Pep 1230 H, Total Protein 8.0, Albumin 4.7, Globulin 3.3 H, Albumin/Globulin Ratio 1.4, HCV Ab ELENA w/Rflx PCR Qn Negative, HIV Ag/Ab Combo Qual Negative 01/12/25 19:18: Troponin I < 0.01 01/12/25 22:32: Troponin I < 0.01 01/13/25 03:10: Troponin I < 0.01, TSH 2.37 01/13/25 05:52: WBC 5.3, RBC 4.60, Hgb 14.4, Hct 42.3, MCV 92.0, MCH 31.3 H, MCHC 34.0, RDW 13.2, Plt Count 182, MPV 9.4, Neut % (Auto) 70.7, Lymph % (Auto) 16.3, [place] % (Auto) 10.5 H, Eos % (Auto) 1.9, Baso % (Auto) 0.4, Neut # (Auto) 3.7, Lymph # (Auto) 0.9, [place] # (Auto) 0.6, Eos # (Auto) 0.1, Baso # (Auto) 0.0, Sodium 131 L, Potassium 4.0, Chloride 102, Carbon Dioxide 23, Anion Gap 10.0, BUN 9 D, Creatinine 0.60 L, Estimated Creat Clear 67, Estimated GFR 131, Est GFR ( Amer) 158, Glucose 103 H, Calcium 9.0 I & O for Last 24 hours: Intake & Output 01/10/25 01/11/25 01/12/25 01/13/25 23:59 23:59 23:59 23:59 Intake Total / 360 Output Total Balance -3 / -3 / 360 Weight 75.614 kg 77.111 kg Constitutional Constitutional: no acute distress *Routine HEENT Exam Head: Present normocephalic Eye: Present EOMI and PERRL ENT: Present mucous membranes moist *Routine Neck Exam Neck: Present supple; Absent lymphadenopathy *Routine Respiratory Exam Respiratory: Present CTA bilaterally *Routine Cardiovascular Exam Cardiovascular: Present RRR *Routine Abdominal Exam Abdominal: Present soft and normoactive bowel sounds; Absent tenderness *Routine Extremities Exam Extremities: Absent cyanosis, clubbing or edema *Routine Skin Exam Skin: Present warm; Absent rash *Routine Neurological Exam Neurological: Present alert and oriented X3 Results Data Completed and Pending Labs on day of discharge: Labs from last 24 hours 01/13/25 01/13/25 01/12/25 05:52 03:10 22:32 WBC 5.3 RBC 4.60 Hgb 14.4 Hct 42.3 MCV 92.0 MCH 31.3 H MCHC 34.0 RDW 13.2 Plt Count 182 MPV 9.4 Neut % (Auto) 70.7 Lymph % (Auto) 16.3 [place] % (Auto) 10.5 H Eos % (Auto) 1.9 Baso % (Auto) 0.4 Neut # (Auto) 3.7 Lymph # (Auto) 0.9 [place] # (Auto) 0.6 Eos # (Auto) 0.1 Baso # (Auto) 0.0 PT INR Sodium 131 L Potassium 4.0 Chloride 102 Carbon Dioxide 23 Anion Gap 10.0 BUN 9 D Creatinine 0.60 L Estimated Creat Clear 67 Estimated GFR 131 Est GFR ( Amer) 158 Glucose 103 H Calcium 9.0 Magnesium Total Bilirubin AST ALT Alkaline Phosphatase Troponin I < 0.01 < 0.01 NT-Pro-B Natriuret Pep Total Protein Albumin Globulin Albumin/Globulin Ratio TSH 2.37 HCV Ab ELNEA w/Rflx PCR Qn HIV Ag/Ab Combo Qual 01/12/25 01/12/25 19:18 15:11 WBC 4.6 L RBC 4.47 L Hgb 14.1 Hct 41.6 L MCV 93.1 MCH 31.5 H MCHC 33.9 RDW 13.1 Plt Count 191 MPV 9.6 Neut % (Auto) 62.3 Lymph % (Auto) 24.5 [place] % (Auto) 11.7 H Eos % (Auto) 0.9 Baso % (Auto) 0.4 Neut # (Auto) 2.9 Lymph # (Auto) 1.1 [place] # (Auto) 0.5 Eos # (Auto) 0.0 Baso # (Auto) 0.0 PT 14.2 H INR 1.30 H Sodium 131 L Potassium 4.3 Chloride 98 Carbon Dioxide 24 Anion Gap 13.3 BUN 7 L Creatinine 0.70 Estimated Creat Clear 67 Estimated GFR 109 Est GFR ( Amer) 132 Glucose 111 H Calcium 9.4 Magnesium 2.2 Total Bilirubin 1.6 H AST 78 H ALT 55 Alkaline Phosphatase 96 Troponin I < 0.01 < 0.01 NT-Pro-B Natriuret Pep 1230 H Total Protein 8.0 Albumin 4.7 Globulin 3.3 H Albumin/Globulin Ratio 1.4 TSH HCV Ab ELENA w/Rflx PCR Qn Negative HIV Ag/Ab Combo Qual Negative DS: Diagnosis Discharge Diagnosis (1) HFrEF (heart failure with reduced ejection fraction): Status: Acute Code(s): I50.20 - Unspecified systolic (congestive) heart failure (2) CAD (coronary artery disease): Status: Chronic Code(s): I25.10 - Atherosclerotic heart disease of [place] coronary artery without angina pectoris Qualifiers: Coronary Disease-Associated Artery/Lesion type: [place] artery [place] vs. transplanted heart: [place] heart Associated angina: without angina Qualified Code(s): I25.10 - Atherosclerotic heart disease of [place] coronary artery without angina pectoris (3) Hypertension: Status: Chronic Code(s): I10 - Essential (primary) hypertension Qualifiers: Hypertension type: essential hypertension Qualified Code(s): I10 - Essential (primary) hypertension Meds Home Medications and Allergies Home Medications ?Medication ?Instructions ?Recorded ?Confirmed ?Type aspirin 81 mg tablet,delayed 81 mg PO HS 07/15/18 01/12/25 History release empagliflozin 10 mg tablet 10 mg PO DAILY #90 tabs 10/21/24 01/12/25 Rx (Jardiance) ezetimibe 10 mg-simvastatin 80 mg 1 tab PO DAILY Cholesterol #90 tabs 10/21/24 01/12/25 Rx tablet nitroglycerin 0.4 mg sublingual 0.4 mg sublingual Q5M PRN chest 10/21/24 01/12/25 Rx tablet pain #25 tabs bisoprolol fumarate 10 mg tablet 5 mg PO BID 01/12/25 01/12/25 History irbesartan 75 mg tablet 75 mg PO BID 30 days #60 tabs 01/13/25 Rx nifedipine 30 mg tablet,extended 30 mg PO DAILY 30 days #30 tabs 01/13/25 Rx release 24 hr (Procardia XL) New Prescriptions to Start Prescriptions: irbesartan Segundo,Irfan nifedipine [Procardia XL] Segundo,Irfan Allergies Allergy/AdvReac Type Severity Reaction Status Date / Time hydrochlorothiazide AdvReac Mild low sodium Verified 01/12/25 14:40 lisinopril AdvReac Mild cough Verified 01/12/25 14:40 Discharge Plan Disposition Patient Disposition: Home, Self-Care Condition: Good Follow up Plan Follow up with: Natan Chapin MD [Staff Physician, Cardiology] - Enter time for follow up Prescriptions/Medication Reconciliation: New irbesartan 75 mg Tablet 75 mg PO BID 30 Days Qty: 60 0RF nifedipine [Procardia XL] 30 mg tablet extended release 24hr 30 mg PO DAILY 30 Days Qty: 30 0RF Continued Jardiance 10 mg tablet 10 mg PO DAILY Qty: 90 3RF ezetimibe-simvastatin 10-80 mg tablet 1 tab PO DAILY Qty: 90 3RF nitroglycerin 0.4 mg tablet, sublingual 0.4 mg sublingual Q5M PRN (Reason: chest pain) Qty: 25 0RF Rx Instructions: do not exceed 3 doses per episode bisoprolol fumarate 10 mg tablet 5 mg PO BID aspirin 81 MG tablet,delayed release (DR/EC) 81 mg PO HS Discontinued valsartan 160 mg tablet 160 mg PO BID Qty: 60 2RF Problem Reconciliation Problems Reviewed?: Yes Patient Discharge Instructions ACTIVITY: Continue current activity DIET: low salt diet Patient Instructions: DI for High Blood Pressure, Stop Light Heart Failure Print Language: Persian Providers Primary Care Provider: Henrique Quiñones Admit Provider: Saji Mcneil Attending Provider: Saji Mcneil
--- NOTE | 2025-01-14 10:42 | SW/DCPLANNER ---
Spoke with patient on the phone. Patient stated that he is doing ok just weak this morning. Patient stated that he is aware of his upcoming appointment. Patient stated that he was able to get his new medicine picked up. Patient stated that he has no concerns or questions at this time. Rosie Bach
== END 2025-01-13 16:12 | disposition home or self-care (01) ==
LOC: ER 17:50 → 2ND 18:05
PROVIDERS: Internal Medicine; Physician Assistant; Admitting Provider Student in an Organized Health Care Education/Training Program; Emergency Provider Emergency Medicine; PCP Internal Medicine Adolescent Medicine; Visit Provider Student in an Organized Health Care Education/Training Program
DX: I16.0 Hypertensive urgency (principal); I11.0 Hypertensive heart disease with heart failure; I50.21 Acute systolic (congestive) heart failure; I25.10 Atherosclerotic heart disease of native coronary artery without angina pectoris; G31.9 Degenerative disease of nervous system, unspecified; E78.5 Hyperlipidemia, unspecified; I42.9 Cardiomyopathy, unspecified; F41.9 Anxiety disorder, unspecified; N28.1 Cyst of kidney, acquired; I35.0 Nonrheumatic aortic (valve) stenosis; Z95.1 Presence of aortocoronary bypass graft; Z88.8 Allergy status to other drugs, medicaments and biological substances; Z87.891 Personal history of nicotine dependence; Z79.82 Long term (current) use of aspirin; Z79.899 Other long term (current) drug therapy
CPT/HCPCS: 36415; 70450; 71045; 76770; 80048; 80053; 83735; 83880; 84443; 84484; 85025; 85610; 86803; 87389; 93005; 93306; 93976; 96374; 99285; G0378; J0360; J1644; J1650

== ENCOUNTER 2025-01-21 12:27 | Emergency (ER) | payer MEDICARE, BC, SELFPAY ==
--- OUTSIDE RECORDS SUMMARY | 2024-12-31 09:45 | XMS_ITS | Encounter Summary ---
Author Organization [facility] Address [address] [place] [address] Care Team Providers Care Marine Geologist Name Role Phone Henrique Quiñones MD Primary Care Provider [phone] Encounter Details Date Type Department Care Team (Late st Contact Info) Description 12/31/2024 9:45 AM EDT Office Visit [facility] [address] [place] [address] Saji Phan MD [address] [address] Bilateral dry eyes (Primary Dx); Pseudophakia, both eyes Social History Tobacco Use Types Packs/Day Years Used Date Smoking Tobacco: Former Passive Smoke Exposure: Past Smokeless Tobacco: Never Tobacco Cessation:Counseling Given: Not Answered Sex and Gender Information Value Date Recorded Sex Assigned at Not on file Legal Sex Male 7:25 PM EDT Gender Identity Not on file Sexual Orientation Not on file documented as of this encounter Miscellaneous Notes * Progress Notes - Saji Phan MD - 12/31/2024 9:45 AM EDT Tobacco Use: Medium Risk (12/31/2024) Patient History Smoking Tobacco Use: Former Smokeless Tobacco Use: Never Passive Exposure: Past The patient has been counseled on tobacco cessation: Yes * Progress Notes - Saji Phan MD - 12/31/2024 9:45 AM EDT Subjective HPI 79 year old male here for follow up on Glare sensitivity, Pseudophakia of both eyes. He states: vision seems stable, no complaints eyes are just dry Using artificial tears very seldom He is happywith readers only. Dry eyes are irritating Last edited by Saji Phan MD on 12/31/2024 9:57 AM. ROS Positive for: Eyes Negative for: Constitutional, Gastrointestinal, Neurological, Skin, Genitourinary, Musculoskeletal,HENT, Endocrine, Cardiovascular, Respiratory, Psychiatric, Allergic/Imm, Heme/Lymph Last edited by Kayla Aranda on 12/31/2024 9:34 AM. Objective Base Eye Exam Visual Acuity (Snellen - Linear) Right Left Dist sc 20/20 20/20 Near cc J1+ J1+ Near vision with +3.00 lens, he didn't bring his readers. Tonometry (Tonopen, 9:52 AM) Right Left Pressure 13 12 Pupils Pupils Right PERRL Left PERRL Visual Randhawa Right Left Full Full Extraocular Movement Right Left Full Full Neuro/Psych Oriented x3: Yes Dilation Both eyes: 1% Tropicamide @ 9:52 AM Slit Lamp and Fundus Exam External Exam Right Left External Normal Normal Slit Lamp Exam Right Left Lids/Lashes Normal for age Normal for age Conjunctiva/Sclera Normal Normal Cornea Clear and compact Clear and compact Anterior Chamber Deep and quiet Deep and quiet Iris Normal pupil size and shape Normal pupil size and shape Lens pc iol stable pc iol stable Vitreous Normal Normal Fundus Exam Right Left Disc No edema; no vascularization; good color (Miguel A 78 d Lens) No edema; no vascularization; good color (Miguel A 78 d Lens) C/D Ratio 0.35 0.35 Macula Normal reflex; without edema Normal reflex; without edema Vessels Perfused; no tortuosity or abnormality Perfused; no tortuosity or abnormality Periphery Attached; no retinal or choroidal lesions Attached; no retinal or choroidal lesions Refraction Manifest Refraction (Auto) Sphere Cylinder [place] Dist VA Right -0.50 +0.75 010 20/20 Left -0.50 +0.50 124 20/20 Assessment/Plan Assessment & Plan Bilateral dry eyes Pseudophakia, both eyes Ats(pf) qid/prn ou Rtc 2 yrs ar/mr/dfe ou documented in this encounter Plan of Treatment Not on file documented as of this encounter Visit Diagnoses Diagnosis Bilateral dry eyes- Primary Pseudophakia, both eyes Lens replaced by other means documented in this encounter Additional Health Concerns Assessment Noted Time A fall risk assessment has been complete d for the patient 10/24/2021 11:00 AM EDT A Body Mass Index follow-up plan has been documented for the patient 12/31/2024 10:02 AM EDT documented as of this encounter Care Teams Marine Geologist Relationship Specialty Start Date End Date Henrique Quiñones MD [address] [place] [address] PCP - General 10/27/20 documented as of this encounter
[2025-01-21] VITALS (7 sets, daily range): BP systolic 145–160; BP diastolic 66–74; PULSE 47–81; RESP 14–22; TEMP 36.8–37.1; O2SAT 97–100; BMI 25.0
--- NOTE | 2025-01-21 12:37 | ECG_ITS ---
APPROVED REPORT Exam: Resting ECG HR:59 bpm ECG Measurements Heart Rate 59 AXES QRSd 112 QRS 76 QT 425 T -68 QTc 423 Conclusion ATRIAL FIBRILLATION WITH SLOW VENTRICULAR RESPONSE MODERATE INTRAVENTRICULAR CONDUCTION DELAY [110+ ms QRS DURATION] ST DEVIATION AND MODERATE T-WAVE ABNORMALITY, CONSIDER INFERIOR ISCHEMIA [-0.1+ mV T-WAVE IN II/aVF] ABNORMAL ECG UNCONFIRMED REPORT A-fib with no ST elevation or depression. Intermittent high degree AV block with underlying first-degree AV block. Electronically signed by : PAM RICHMOND, 01/22/2025 07:47:03
--- OUTSIDE RECORDS SUMMARY | 2025-01-21 12:39 | XMS_ITS | Encounter Summary ---
[facility] Organization [facility] Address [address] [place] [id number] Care Team Providers Care Cultural Anthropology Professor Name Role Phone Provider, No Known Primary Care Provider Unavail able Encounter Details Date Type Department Care Team (Late st Contact Info) Description 12/14/2015 External CPT II MANAGER QA - [facility] Social History Tobacco Use [...] on filedocumented in this encounter Care Teams Cultural Anthropology Professor Relationship Specialty Start Date End Date Provider, [place] [address] PCP - General 01/07/17 01/08/17 documented as of this encounter
--- OUTSIDE RECORDS SUMMARY | 2025-01-21 12:39 | XMS_ITS | Encounter Summary ---
Author Organization Healthcare Address [address] [place] [address] Care Team Providers Care Doffer Name Role Phone Henrique Quiñones MD Primary Care Provider [phone] Encounter Details Date Type Department Care Team [...] documented as of this encounter Care Teams Doffer Relationship Specialty Start Date End Date Henrique Quiñones MD [address] [place] [address] PCP - General 10/27/20 documented as of this encounter
--- OUTSIDE RECORDS SUMMARY | 2025-01-21 12:39 | XMS_ITS | Encounter Summary ---
Author Organization [facility] Address [address] [place] [address] Care Team Providers Care Chucking And Sawing Machine Operator Name Role Phone Henrique Quiñones MD Primary Care Provider [phone] Encounter Details Date Type Department Care Team [...] documented as of this encounter Care Teams Chucking And Sawing Machine Operator Relationship Specialty Start Date End Date Henrique Quiñones MD [address] [place], [place] [address] PCP - General 10/27/20 documented as of this encounter
--- OUTSIDE RECORDS SUMMARY | 2025-01-21 12:39 | XMS_ITS | Clinical Summary ---
Author Organization [facility] Address [address] [place] [address] Care Team Providers Care Principal Android Developer Name Role Phone Unavailable Primary Care Provider [...] VACCINE 03/16/2025 Insurance MEDICARE A & B [facility]
--- OUTSIDE RECORDS SUMMARY | 2025-01-21 12:39 | XMS_ITS | Clinical Summary ---
Author Organization [facility] Address [address] [place] [address] Care Team Providers Care Employment Coordinator Name Role Phone Henrique Quiñones MD Primary Care Provider [phone] Allergies Active Allergy Reactions Criticality Noted Date [...] Description 12/31/2024 9:45 AM EDT Office Visit [facility] [address] [place] [phone] Saji Phan MD Bilateral dry eyes (Primary [...] Screening 1945 [facility]-Medicare Annual Wellness (AWV) 1945 [facility]-/Child/Adol SDOH Screenings 1947 [facility]- SDOH Screenings 1965 [facility]-Adult SDOH Screenings 1965 [facility]-DTaP,Tdap,and Td Vaccines (1 - Tdap) 1966 [facility]-Zoster Vaccines (1 of 2) 1997 [facility]-RSV Vaccine: 60+ Years or (1 - 1-dose 75+ series) 2022 [id number] Vaccine ( season) 2024 05/21/2021, 07/24/2020, 06/22/2020 [...] this topic Insurance MEDICARE ANTHEM Care Teams Employment Coordinator Relationship Specialty Start Date End Date Henrique Quiñones MD [address] [place] [address] PCP - General 10/27/20
--- NOTE | 2025-01-21 12:46 | XR_ITS ---
FINAL REPORT CLINICAL HISTORY: Fatigue COMPARISON: 01/12/2025 FINDINGS: A single view of the chest was obtained. The heart size is normal. There are multiple median sternotomy wires and coronary ostial markers. There is no focal infiltrate or edema. There are no pleural effusions. There is no pneumothorax. There is no osseous abnormality. IMPRESSION: Stable exam with no significant interval changes from prior. Reviewed, Interpreted and Dictated by Kevin Estrella MD Transcribed by Irene Krishnan Authenticated and [facility]
--- NOTE | 2025-01-21 12:48 | ED_ITS ---
Discharge Plan Disposition Patient Disposition: Home, Self-Care Prescriptions Prescriptions: No Action Jardiance 10 mg tablet 10 mg PO DAILY Qty: 90 3RF ezetimibe-simvastatin 10-80 mg tablet 1 tab PO DAILY Qty: 90 3RF nitroglycerin 0.4 mg tablet, sublingual 0.4 mg sublingual Q5M PRN (Reason: chest pain) Qty: 25 0RF Rx Instructions: do not exceed 3 doses per episode bisoprolol fumarate 10 mg tablet 5 mg PO BID irbesartan 75 mg Tablet 75 mg PO BID 30 Days Qty: 60 0RF nifedipine [Procardia XL] 30 mg tablet extended release 24hr 30 mg PO DAILY 30 Days Qty: 30 0RF aspirin 81 MG tablet,delayed release (DR/EC) 81 mg PO HS Referrals Follow up/Referrals: Henrique Quiñones MD [Primary Care Provider, Internal Medicine] - See instructions Activity Restrictions/Add. Instructions Additional Instructions/Restrictions: You are to follow-up with Dr. Rodas on Friday morning at 9 AM in clinic. If you develop any new or worsening symptoms, such as chest pain, shortness of breath, heart palpitations, sweatiness, or if you become concerned for your health for any reason, return to the emergency department for evaluation. Clinical Impressions Clinical Impression: 1st degree AV block, Chronic hyponatremia Print Language Print Language: Amharic Discharge ED Provider: Owen Bearden Adult HPI General Chief complaint: Anxiety Stated complaint: jittery, cat sleep, history of low sodium Time Seen by Provider: 01/21/25 12:36 Mode of Arrival: Ambulatory Source of Information: Patient Description of Symptoms (Recalled from ER Triage Doc. by RN): Patient presents to ED from home with c/o feeing nervous and inability to sleep. Patient states symptoms started last week after he was seen for HTN and had some medication changes. Reports he was put on Procardia XL and Irbesartan. Patient denies chest pain, denies SOA. History of Present Illness HPI narrative: Chucky Watts is a 79y male with a history of coronary artery disease status post stenting and open heart surgery, hypertension, hyperlipidemia, anxiety, hyponatremia who presents to the emergency department for complaints of feeling jittery and unable to sleep and poor appetite over the last 2 weeks. Patient states that he has had low sodium in the past and this feels similar. He reports an unintended weight loss over that time as well. He does state that on the of last month, he had very high blood pressure and was admitted and had a few of his medications changed. He denies any recent chest pain, shortness of breath, palpitations, abdominal pain, nausea, vomiting, dysuria, hematuria, edema. He does state that he has been drinking a lot of water recently. Related Data Home Medications ?Medication ?Instructions ?Recorded ?Confirmed aspirin 81 mg tablet,delayed 81 mg PO HS 07/15/1802/07 release bisoprolol fumarate 10 mg tablet 5 mg PO BID 01/12/25 01/21/25 Previous Rx's ?Medication ?Instructions ?Recorded empagliflozin 10 mg tablet 10 mg PO DAILY #90 tabs 02/07 (Jardiance) ezetimibe 10 mg-simvastatin 80 mg 1 tab PO DAILY Loly sterol #90 tabs 10/21/24 tablet nitroglycerin 0.4 mg sublingual 0.4 mg sublingual Q5M PRN chest 10/21/24 tablet pain #25 tabs irbesartan 75 mg tablet 75 mg PO BID 30 days #60 tab s 01/13/25 nifedipine 30 mg tablet,extended 30 mg PO DAILY 30 day s #30 tabs 01/13/25 release 24 hr (Procardia XL) Allergies Allergy/AdvReac Type Severity Reaction Status Date / Time hydrochlorothiazide AdvReac Mild low sodium Verified 01/12/25 14:40 lisinopril AdvReac Mild cough Verified 01/12/25 14:40 [facility] Disclaimer: The information contained in this section may have been updated after the patient was seen, as this information can be updated by other users. Medical History HFrEF (heart failure with reduced ejection fraction) LV dysfunction Left carotid bruit Cardiomyopathy Hyperlipidemia Hypertension Surgical History History of coronary artery bypass graft Social History (Updated 01/12/25 @ 20:37 by Paola Brown RN) Smoking Status: Former smoker second hand exposure: No alcohol intake: former substance use type: denies use current occupational status: retired Travel in the last 8 weeks?: [place] the [place] household members: spouse and children housing: house current occupational exposures/hazards: No caffeine: Yes Have you lived/traveled outside US in past 30 days?: No Contact w/someone who lives/traveled outside US past 30 days?: No Exposure to someone with infectious disease in past 14 days?: No Do you have a fever (greater than 100.4 F or 38 C)?: No Have you tested positive for COVID-19?: No Exposed to someone with COVID-19 in past 14 days?: No Do you have a sore throat?: No Do you have a cough?: No Do you have any weakness?: No Do you have any diarrhea?: No Are you experiencing any unusual bleeding?: No Do you have any muscle aches/pain?: No Do you have any abdominal pain?: No Are you experiencing loss of taste or smell?: No Other Medical History Have you received the Flu Vaccine for this season: No Have you received the Pneumonia Vaccine: No ROS Obtained: Yes Systems reviewed as appropriate & no additional complaints except as documented Physical Exam General General appearance: alert and in no apparent distress Head Head exam: atraumatic Eye Eye exam: Present normal appearance ENT ENT exam: Present normal external ear exam Neck Neck exam: Present full ROM Chest Chest inspection: Present symmetric chest wall rise Respiratory Respiratory exam: Present normal lung sounds bilaterally; Absent respiratory distress Cardiovascular Cardiovascular exam: Present bradycardia and irregular rhythm Abdominal Exam Abdominal exam: Present soft; Absent tenderness or guarding exam: Present deferred Extremities Exam Extremities exam: Present normal inspection; Absent edema Back Exam Back exam: Present normal inspection Neurological Exam Neurological exam: Present alert and oriented X3 Psychiatric Psychiatric exam: Present normal affect Skin Skin exam: Present warm and dry Medical Decision Making Medical Records Screening: Per USPSTF and CDC recommendations, given the prevalence of disease in our region, it is our hospital?s policy to screen for HIV and viral Hepatitis for all patients aged 18 and over and those with ongoing risk factors. Jacob Inquiry Pt receiving controlled substance: No Vital Signs: 01/21/25 12:32 01/21/25 12:36 01/21/25 12:45 Temperature 98.7 F Temperature Source Oral Pulse Rate 47 L 55 L Pulse Rate [Right] 81 Respiratory Rate 16 19 14 Blood Pressure 148/72 H Blood Pressure [Right Arm] 148/72 H Blood Pressure Mean 132 Blood Pressure Mean [Right Arm] 97 Blood Pressure Source [Right Arm] Automatic Cuff Blood Pressure Position [Right Arm] Supine 02 Sat by Pulse Oximetry 97 99 99 Oxygen Delivery Method Room Air Room Air Room Air 01/21/25 13:00 01/21/25 13:30 01/21/25 14:01 Temperature Temperature Source Pulse Rate 56 L 52 L 52 L Pulse Rate [Right] Respiratory Rate 22 19 16 Blood Pressure 152/74 H 145/68 H 153/66 H Blood Pressure [Right Arm] Blood Pressure Mean 112 107 95 Blood Pressure Mean [Right Arm] Blood Pressure Source [Right Arm] Blood Pressure Position [Right Arm] 02 Sat by Pulse Oximetry 98 98 100 Oxygen Delivery Method Room Air Room Air Room Air Lab Data Lab Results 01/21/25 12:38: WBC 6.6, RBC 5.10, Hgb 16.1, Hct 47.0, MCV 92.2, MCH 31.6 H, MCHC 34.3, RDW 12.6, Plt Count 197, MPV 9.8, Neut % (Auto) 66.7, Lymph % (Auto) 20.0, [place] % (Auto) 11.3 H, Eos % (Auto) 1.2, Baso % (Auto) 0.6, Neut # (Auto) 4.4, Lymph # (Auto) 1.3, [place] # (Auto) 0.7, Eos # (Auto) 0.1, Baso # (Auto) 0.0, VBG pH 7.30 L, VBG pCO2 51.4 H, VBG pO2 48.7 H, VBG HCO3 24.8, VBG Total CO2 26.4, VBG O2 Saturation 79.1 H, VBG Base Excess -1.6, VBG Lactic Acid 1.7, S odium 130 L, Potassium 4.2, Chloride 95 L, Carbon Dioxide 28, Anion Gap 11.2, BUN 9, Creatinine 0.60 L, Estimated Creat Clear 65, Estimated GFR 131, Est GFR ( Amer) 158, Glucose 128 H, Calcium 9.3, Magnesium 2.2, Total Bilirubin 1.2, AST 46, ALT 56, Alkaline Phosphatase 68, Troponin I < 0.01, NT-Pro-B Natriuret Pep 635 H, Total Protein 8.9 H, Albumin 4.9, Globulin 4.0 H, Albumin/Globulin Ratio 1.2, TSH 1.94, Free T4 1.48 01/21/25 13:12: Urine Color Yellow, Urine Appearance Clear, Urine pH 7.0, Ur Specific [place] 1.010, Urine Protein Negative, Urine Glucose (UA) 3+, Urine Ketones Negative, Urine Blood Negative, Urine Nitrate Negative, Urine Bilirubin Negative, Urine Urobilinogen 0.2, Ur Leukocyte Esterase Negative, Urine RBC None, Urine WBC Occasional, Ur Squamous Epith Cells None, Urine Bacteria Trace 01/21/25 12:38 01/21/25 12:38 Orders (Tests/Meds): ED MEDICATIONS Discontinued Medications Generic Name Dose Route Start Last Admin Trade Name Freq PRN Reason Stop Dose Admin Sodium Chloride 1,000 mls @ 999 mls/hr 01/21/25 13:02 01/21/25 13:08 Sod Chlor 0.9% 1000ml Bag IV 01/21/25 14:02 999 mls/hr .Q1H1M ONE Administration ORDERS Category Date Time Status CXR --portable [XR chest portable] Stat Exams 01/21/25 12:46 Completed BNP [NT Pro Brain Natriuretic Pep.] Stat Lab 01/21/25 12:38 Completed CBC w/Auto Diff [Complete Blood Count Auto Diff] Stat Lab 01/21/25 12:38 Completed CMP [Comprehensive Metabolic Panel] Stat Lab 01/21/25 12:38 Completed Free T4 (Free Thyroxine) Stat Lab 01/21/25 12:38 Completed Magnesium Stat Lab 01/21/25 12:38 Completed TSH [Thyroid Stimulating Hormone] Stat Lab 01/21/25 12:38 Completed Troponin I Q3H Lab 01/21/25 16:00 Ordered Troponin I Q3H Lab 01/21/25 19:00 Ordered Troponin I Stat Lab 01/21/25 12:38 Completed UA [Urinalysis and Microscopic] Stat Lab 01/21/25 13:12 Completed VBG [Venous Blood Gas] Stat RT 01/21/25 12:38 Completed ECG Data Tracing #1: I reviewed this ECG and interpreted as documented below: EKG with narrow complex QRS. No ST elevation or depression. Patient does appear to have prolonging ME segment with dropped beat that appears to be a second-degree AV block Mobitz type I, but irregular R-R intervals make intermittent second degree AV block a possibility. Medical Decision Narrative: Chucky Watts is a 79y male with a history of coronary artery disease status post stenting and open heart surgery, hypertension, hyperlipidemia, anxiety, hyponatremia who presents to the emergency department for complaints of feeling jittery and unable to sleep and poor appetite over the last 2 weeks. Patient states that he has had low sodium in the past and this feels similar. He reports an unintended weight loss over that time as well. He does state that on the of last month, he had very high blood pressure and was admitted and had a few of his medications changed. He denies any recent chest pain, shortness of breath, palpitations, abdominal pain, nausea, vomiting, dysuria, hematuria, edema. He does state that he has been drinking a lot of water recently. On arrival, patient is mildly hypertensive, heart rate low into the 50-60 range, afebrile, breathing complaint room air with oxygen saturation 99% SpO2. Physical exam, as stated above, revealed an overall well-appearing male in no distress. Abdomen is soft, nontender nondistended. Cardiopulmonary exam without murmurs, wheezing, rales or rhonchi. No peripheral edema. GCS 15. Mucous membranes are moist. Differential diagnosis includes, but is not limited to: Cardiac arrhythmia, AV block, electrolyte derangement, ACS, CHF, metabolic derangement such as hyper/hypothyroidism, infection, among others. The most morbid conditions were considered and workup was based on these. Workup in the emergency department included: Chest x-ray, EKG, CMP, CBC, magnesium level, VBG with lactate, troponin, BNP, urinalysis, TSH/free T4 EKG, as stated above, showed findings concerning for possible Mobitz type I second-degree AV block, however ME interval's do appear irregular. There is one dropped beat noted. This could be underwriting service representative of more of an intermittent High grade AV blockade. previous EKGs do show a first-degree AV block. No obvious ischemia. Prolonged lead to rhythm strip shows consistent first-degree AV block. This does raise my concern the patient is having intermittent episodes of high degree AV blockade. Laboratory studies show no leukocytosis, no anemia, platelets normal at 197. VBG with mild acidosis at 7.3 and pCO2 mildly elevated 51.4. Bicarb normal at 24.8. Lactate normal at 1.7. Mild hyponatremia at 130. Mild hypochloremia at 35. Potassium normal at 4.2. No elevated anion gap. Renal function is normal. Glucose normal at 128. Calcium normal at 9.3. Magnesium normal at 2.2. Liver enzymes bilirubin within normal limits. Initial troponin less than 0.01. BNP only mildly elevated at 635, which is near baseline. TSH/free T4 within normal limits. Urinalysis without evidence of infection, no proteinuria. No hematuria. I discussed patient's case with Dr. Rodas given concern for intermittent high degree AV blockade. Per Dr. Rodas, he wants patient to come to clinic at 9 AM on Friday. Will schedule patient for this appointment. Upon chart review, patient's hyponatremia is at its baseline. Laboratory workup is otherwise unremarkable. I do feel that patient's symptoms could be explained by his intermittent higher degree AV block and will likely need a pacemaker, however there is no indication for admission at this time as patient will not undergo pacemaker placement over the weekend. Return precautions were given. All questions were answered. He and his demonstrated understanding and were in agreement this plan. He was then discharged from the emergency department in stable condition. Critical Care Critical Care Time Critical Care Time: No
[2025-01-21 12:55] LABS: Lactate Venous 1.7 mmol/L (0.4-2.0); VBG HCO3 24.8 mmol/L (23-30); VBG PCO2 51.4 mmol/L (35-51); VBG PH 7.30 mmol/L (7.31-7.41); VBG PO2 48.7 mmol/L (28-40)
[2025-01-21 12:56] LABS: Albumin Level 4.9 g/dl (3.5-5.0); Chloride 95 mmol/L (98-107); Potassium 4.2 mmoL/L (3.5-5.1); Sodium 130 mmol/L (136-145)
[2025-01-21 12:58] LABS: Alanine Aminotransferase 56 U/L (12-78); Aspartate Amino Transferase 46 U/L (17-59); Blood Urea Nitrogen 9 mg/dl (9-20); Creatinine Clearance Estimated 65 mL/min (50-200); Creatinine,Serum 0.60 mg/dl (0.66-1.25); Estimated Glomerular Filt Rate 131 ml/min (>60); GFR (African American) 158 ML/MIN (>60); Hematocrit 47.0 % (42.0-52.0); Hemoglobin 16.1 g/dL (14.1-18.0); Immature Granulocytes % 0.2 %; Mean Corpuscular HGB Conc 34.3 g/dL (31.8-35.4); Mean Corpuscular Hemoglobin 31.6 pg (27.0-31.2); Mean Corpuscular Volume 92.2 fl (80-94); Nucleated Red Blood Cells % 0 %; Platelet Count 197 K/mm3 (142-424); Red Blood Count 5.10 M/mm3 (4.60-6.20); Red Cell Distribution Width-SD 43.3 fL; White Blood Count 6.6 K/mm3 (4.8-10.8)
[2025-01-21 12:59] LABS: Albumin/Globulin Ratio 1.2 (1.1-1.8); Alkaline Phosphatase 68 U/L (38-126); Anion Gap 11.2 mEq/L (5-15); Bilirubin,Total 1.2 mg/dl (0.2-1.3); Calcium 9.3 mg/dl (8.4-10.2); Carbon Dioxide 28 mmol/L (22.0-30.0); Globulin 4.0 g/dL (1.3-3.2); Glucose 128 mg/dl (74-100); Magnesium 2.2 mg/dl (1.6-2.3); Total Protein,Serum 8.9 g/dl (6.3-8.2)
[2025-01-21 13:08] LABS: NT Pro Brain Natriuretic Pep. 635 pg/mL (0-450)
[2025-01-21] MEDS: 0.9 % SODIUM CHLORIDE 1000ML 1,000 ML 999 ML IV (13:08)
[2025-01-21 13:14] LABS: Microscopic, Urine URINE MICROSCOPIC (MICROSCOPIC)
[2025-01-21 13:19] LABS: Bilirubin,Urine Negative (Negative); Color,Urine YELLOW (Yellow); Glucose,Urine (UA) 3+ (Negative); Ketones,Urine Negative (Negative); Leukocyte Esterase,Urine Negative (Negative); PH,Urine 7.0 (5.0-8.5); Protein,Urine Negative (Negative); Specific Gravity, Urine 1.010 (1.005-1.030); Urobilinogen,Urine 0.2 EU/dl (0.2)
[2025-01-21 13:26] LABS: Free T4 (Free Thyroxine) 1.48 ng/dl (0.78-2.19)
[2025-01-21 13:30] LABS: Thyroid Stimulating Hormone 1.94 uIU/mL (0.465-4.68); Troponin I < 0.01 ng/ml (0.00-0.034)
[2025-01-21 13:34] LABS: Bacteria,Urine Trace /lpf; WBC,Urine Occasional #/hpf (0-3)
== END 2025-01-21 14:42 | disposition home or self-care (01) ==
PROVIDERS: Emergency Provider Student in an Organized Health Care Education/Training Program; PCP Internal Medicine Adolescent Medicine
DX: I44.39 Other atrioventricular block (principal); E87.1 Hypo-osmolality and hyponatremia; I10 Essential (primary) hypertension; E78.5 Hyperlipidemia, unspecified; Z86.79 Personal history of other diseases of the circulatory system; Z87.891 Personal history of nicotine dependence
CPT/HCPCS: 71045; 80053; 81001; 82803; 83735; 83880; 84439; 84443; 84484; 85025; 93005; 93225; 93226; 93227; 96360; 99285; J7030

== ENCOUNTER 2025-01-24 11:18 | Outpatient (CLI) | payer MEDICARE, BC, SELFPAY ==
--- OUTSIDE RECORDS SUMMARY | 2024-12-31 09:45 | XMS_ITS | Encounter Summary ---
Author Organization [facility] Address [address] [place] [address] Care Team Providers Care Logistics Intern Name Role Phone Henrique Quiñones MD Primary Care Provider [phone] Encounter Details Date Type Department Care Team (Late st Contact Info) Description 12/31/2024 9:45 AM EDT Office Visit [facility] [address] [place] [address] Saji Phan MD [address] [address] Bilateral dry eyes (Primary Dx); [...] lesions Refraction Manifest Refraction (Auto) Sphere Cylinder [place] Dist VA Right -0.50 +0.75 010 20/20 [...] documented as of this encounter Care Teams Logistics Intern Relationship Specialty Start Date End Date Henrique Quiñones MD [address] [place] [address] PCP - General 10/27/20 documented as of this encounter
--- OUTSIDE RECORDS SUMMARY | 2025-01-24 11:25 | XMS_ITS | Clinical Summary ---
Author Organization [facility] Address [address] [place] [address] Care Team Providers Care Bag Machine Adjuster Name Role Phone Unavailable Primary Care Provider [...] VACCINE 03/16/2025 Insurance MEDICARE A & B [facility]
--- OUTSIDE RECORDS SUMMARY | 2025-01-24 11:25 | XMS_ITS | Encounter Summary ---
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
--- OUTSIDE RECORDS SUMMARY | 2025-01-24 11:25 | XMS_ITS | Encounter Summary ---
Author Organization [facility] Address [address] [place] [address] Care Team Providers Care Conference Center Manager Name Role Phone Henrique Quiñones MD Primary Care Provider [phone] Encounter Details Date Type Department Care Team [...] documented as of this encounter Care Teams Conference Center Manager Relationship Specialty Start Date End Date Henrique Quiñones MD [address] [place] [address] PCP - General 10/27/20 documented as of this encounter
--- OUTSIDE RECORDS SUMMARY | 2025-01-24 11:25 | XMS_ITS | Encounter Summary ---
Author Organization [facility] Address [address] [place] [address] Care Team Providers Care Optics Technical Officer Name Role Phone Henrique Quiñones MD Primary Care Provider [phone] Encounter Details Date Type Department Care Team [...] documented as of this encounter Care Teams Optics Technical Officer Relationship Specialty Start Date End Date Henrique Quiñones MD [address] [place] [address] PCP - General 10/27/20 documented as of this encounter
--- OUTSIDE RECORDS SUMMARY | 2025-01-24 11:25 | XMS_ITS | Clinical Summary ---
Author Organization [facility] Address [address] [place] [address] Care Team Providers Care Staffing Branch Manager Name Role Phone Henrique Quiñones MD Primary Care Provider [phone] Allergies Active Allergy Reactions Criticality Noted Date [...] Description 12/31/2024 9:45 AM EDT Office Visit [facility] [address] [place] [id number] Saji Phan MD Bilateral dry eyes (Primary [...] or (1 - 1-dose 75+ series) 2022 [id number] Vaccine ( season) 2024 05/21/2021, 07/24/2020, 06/22/2020 [...] this topic Insurance MEDICARE ANTHEM Care Teams Staffing Branch Manager Relationship Specialty Start Date End Date Henrique Quiñones MD [address] [place] [address] PCP - General 10/27/20
[2025-01-24 11:47] LABS: Hematocrit 46.6 % (42.0-52.0); Hemoglobin 15.4 g/dL (14.1-18.0); Immature Granulocytes % 0.2 %; Mean Corpuscular HGB Conc 33.0 g/dL (31.8-35.4); Mean Corpuscular Hemoglobin 30.6 pg (27.0-31.2); Mean Corpuscular Volume 92.5 fl (80-94); Nucleated Red Blood Cells % 0 %; Platelet Count 200 K/mm3 (142-424); Red Blood Count 5.04 M/mm3 (4.60-6.20); Red Cell Distribution Width-SD 43.3 fL; White Blood Count 5.1 K/mm3 (4.8-10.8)
[2025-01-24 12:07] LABS: Alanine Aminotransferase 76 U/L (12-78); Albumin Level 4.5 g/dl (3.5-5.0); Alkaline Phosphatase 77 U/L (38-126); Anion Gap 13.0 mEq/L (5-15); Aspartate Amino Transferase 57 U/L (17-59); Bilirubin,Direct 0.1 mg/dl (0.0-0.4); Bilirubin,Indirect 1.0 mg/dL (0.0-0.9); Bilirubin,Total 1.1 mg/dl (0.2-1.3); Bilirubin,Unconjugated 1.1 mg/dL (0.0-1.1); Blood Urea Nitrogen 10 mg/dl (9-20); Calcium 9.2 mg/dl (8.4-10.2); Carbon Dioxide 26 mmol/L (22.0-30.0); Chloride 97 mmol/L (98-107); Cholesterol 109 mg/dl (140-200); Creatinine,Serum 0.50 mg/dl (0.66-1.25); Estimated Glomerular Filt Rate 161 ml/min (>60); GFR (African American) 195 ML/MIN (>60); Glucose 110 mg/dl (74-100); HDL Cholesterol 31 mg/dl (40-60); Magnesium 2.1 mg/dl (1.6-2.3); Potassium 5.0 mmoL/L (3.5-5.1); Sodium 131 mmol/L (136-145); Total Protein,Serum 7.7 g/dl (6.3-8.2); Triglycerides 76 mg/dl (30-150)
[2025-01-24 12:25] LABS: Free T4 (Free Thyroxine) 1.44 ng/dl (0.78-2.19)
[2025-01-24 12:37] LABS: Thyroid Stimulating Hormone 2.04 uIU/mL (0.465-4.68)
== END 2025-01-24 23:59 | disposition home or self-care (01) ==
LOC: LAB 11:19
PROVIDERS: PCP Internal Medicine Adolescent Medicine; Visit Provider Nurse Practitioner
DX: I65.23 Occlusion and stenosis of bilateral carotid arteries (principal); I10 Essential (primary) hypertension
CPT/HCPCS: 36415; 80048; 80061; 80076; 83735; 84439; 84443; 85025

== ENCOUNTER 2025-01-27 09:43 | Observation (INO) | payer MEDICARE, BC, SELFPAY ==
[2025-01-27] VITALS (12 sets, daily range): BP systolic 128–162; BP diastolic 65–75; PULSE 50–62; RESP 16–18; TEMP 36.6; O2SAT 98–99; BMI 27.1
--- NOTE | 2025-01-27 10:24 | P.HP_ITS ---
[facility] Disclaimer: The information contained in this section may have been updated after the patient was seen, as this information can be updated by other users. Medical History HFrEF (heart failure with reduced ejection fraction) LV dysfunction Left carotid bruit Cardiomyopathy Hyperlipidemia Hypertension Surgical History History of coronary artery bypass graft Social History (Updated 01/27/25 @ 10:15 by Corinna Felix RN) Smoking Status: Former smoker second hand exposure: No alcohol intake: never substance use type: denies use current occupational status: retired Travel in the last 8 weeks?: [place] household members: spouse and children housing: house current occupational exposures/hazards: No caffeine: Yes Have you lived/traveled outside US in past 30 days?: No Contact w/someone who lives/traveled outside US past 30 days?: No Exposure to someone with infectious disease in past 14 days?: No Do you have a fever (greater than 100.4 F or 38 C)?: No Have you tested positive for COVID-19?: No Exposed to someone with COVID-19 in past 14 days?: No Do you have a sore throat?: No Do you have a cough?: No Do you have any weakness?: No Are you experiencing any nausea/vomitting?: No Do you have any diarrhea?: No Are you experiencing any unusual bleeding?: No Do you have any muscle aches/pain?: No Do you have any abdominal pain?: No Are you experiencing loss of taste or smell?: No Other Medical History Have you received the Flu Vaccine for this season: No Have you received the Pneumonia Vaccine: Yes Meds Home Medications and Allergies Home Medications ?Medication ?Instructions ?Recorded ?Confirmed ?Type aspirin 81 mg tablet,delayed 81 mg PO HS 07/15/1801/14 History release empagliflozin 10 mg tablet 10 mg PO DAILY #90 tabs 02/0701/27/25 Rx (Jardiance) nitroglycerin 0.4 mg sublingual 0.4 mg sublingual Q5M PRN chest 10/21/24 01/27/25 Rx tablet pain #25 tabs bisoprolol fumarate 10 mg tablet 5 mg PO BID 01/12/25 01/27/25 History irbesartan 75 mg tablet 75 mg PO BID 30 days #60 tab s 01/13/25 01/27/25 Rx nifedipine 30 mg tablet,extended 30 mg PO DAILY 30 day s #30 tabs 01/13/25 01/27/25 Rx release 24 hr (Procardia XL) ezetimibe 10 mg-simvastatin 80 mg 1 tab PO DAILY 10/80 mg 01/27/25 01/27/25 History tablet New Prescriptions to Start Prescriptions: Allergies Allergy/AdvReac Type Severity Reaction Status Date / Time hydrochlorothiazide AdvReac Mild low sodium Verified 01/27/25 08:53 lisinopril AdvReac Mild cough Verified 01/27/25 08:53 Exam Data for Last 24 hours Vital signs and Labs for Last 24 Hours: Temp Pulse Resp BP Pulse Ox O2 Del Method 97.8 F 56 L 18 162/75 H 99 Room Air 01/27/25 10:03 01/27/25 10:03 01/27/25 10:03 01/27/25 10:03 01/27/25 10:03 01/27/25 10:03 I & O for Last 24 hours: Intake & Output 01/24/25 01/25/25 01/26/25 01/27/25 23:59 23:59 23:59 23:59 Weight 78.698 kg
--- NOTE | 2025-01-27 10:29 | ECG_ITS ---
APPROVED REPORT Exam: Resting ECG HR:54 bpm ECG Measurements Heart Rate 54 AXES AL 293 P -32 QRSd 112 QRS 37 QT 433 T -69 QTc 418 Conclusion SINUS BRADYCARDIA WITH FIRST DEGREE AV BLOCK POSSIBLE INFERIOR MYOCARDIAL INFARCTION , OF INDETERMINATE AGE [30 ms Q WAVE IN II/aVF] ABNORMAL ECG UNCONFIRMED REPORT Electronically signed by : CHADD COBIAN, 01/28/2025 00:36:51
[2025-01-27 10:54] LABS: Hematocrit 41.9 % (42.0-52.0); Hemoglobin 14.8 g/dL (14.1-18.0); Immature Granulocytes % 0.2 %; Mean Corpuscular HGB Conc 35.3 g/dL (31.8-35.4); Mean Corpuscular Hemoglobin 32.5 pg (27.0-31.2); Mean Corpuscular Volume 91.9 fl (80-94); Nucleated Red Blood Cells % 0 %; Platelet Count 197 K/mm3 (142-424); Red Blood Count 4.56 M/mm3 (4.60-6.20); Red Cell Distribution Width-SD 41.6 fL; White Blood Count 5.0 K/mm3 (4.8-10.8)
[2025-01-27 11:00] LABS: Albumin Level 4.4 g/dl (3.5-5.0); Chloride 97 mmol/L (98-107); Potassium 5.4 mmoL/L (3.5-5.1); Sodium 130 mmol/L (136-145)
[2025-01-27 11:03] LABS: Alanine Aminotransferase 57 U/L (12-78); Albumin/Globulin Ratio 1.3 (1.1-1.8); Alkaline Phosphatase 56 U/L (38-126); Anion Gap 11.4 mEq/L (5-15); Aspartate Amino Transferase 47 U/L (17-59); Bilirubin,Total 1.4 mg/dl (0.2-1.3); Blood Urea Nitrogen 9 mg/dl (9-20); Calcium 8.8 mg/dl (8.4-10.2); Carbon Dioxide 27 mmol/L (22.0-30.0); Creatinine Clearance Estimated 69 mL/min (50-200); Creatinine,Serum 0.50 mg/dl (0.66-1.25); Estimated Glomerular Filt Rate 161 ml/min (>60); GFR (African American) 195 ML/MIN (>60); Globulin 3.4 g/dL (1.3-3.2); Glucose 106 mg/dl (74-100); Magnesium 2.2 mg/dl (1.6-2.3); Total Protein,Serum 7.8 g/dl (6.3-8.2)
--- NOTE | 2025-01-27 11:37 | P.PN_ITS ---
Subjective Subjective Date: 01/27/25 Time: 11:37 Principal diagnosis: Unstable angina, abnormal Echo Interval history: Long standing patient of our clinic with known CAD and prior CABG in 2006 and stenting in 2018, moderate Aortic stenosis, HFrEF HTN and first degree AV block on EKG. Recently been seen for HTN with ER visit over this past weekend for jittery feeling with possible arrhythmia. He has been seen twice this week in the clinic and today feels like he needs admission for further cardiac evaluation due to being extremely jittery, SOA, unable to sleep due to concern for arrhythmia and possible need for pacemaker. Recently hospitalized at the end of December for symptomatic hypertension which did improve with medication changes but during that admission he did have an echocardiogram which did showed new wall motion abnormalities. He did not complain of chest pain at that time and had normal troponins so outpatient testing was recommended. He was in the process of having a [place] Myoview set up when the events noted above occurred this week. He has now been admitted for further evaluation. In light of the patient's significant cardiac history with new wall motion abnormalities on echocardiogram we have recommended proceeding with left heart catheterization today. Patient agrees to proceed in this fashion Exam Data for Last 24 hours Vital signs and Labs for Last 24 Hours: Temp Pulse Resp BP Pulse Ox O2 Del Method 97.8 F 56 L 18 162/75 H 99 Room Air 01/27/25 10:03 01/27/25 10:03 01/27/25 10:03 01/27/25 10:03 01/27/25 10:03 01/27/25 10:03 Laboratory Results - last 24 hr 01/27/25 10:36: WBC 5.0, RBC 4.56 L, Hgb 14.8, Hct 41.9 L, MCV 91.9, MCH 32.5 H, MCHC 35.3, RDW 12.3, Plt Count 197, MPV 9.8, Neut % (Auto) 73.4, Lymph % (Auto) 16.0, [place] % (Auto) 9.4 H, Eos % (Auto) 0.4, Baso % (Auto) 0.6, Neut # (Auto) 3.7, Lymph # (Auto) 0.8, [place] # (Auto) 0.5, Eos # (Auto) 0.0, Baso # (Auto) 0.0, Sodium 130 L, Potassium 5.4 H, Chloride 97 L, Carbon Dioxide 27, Anion Gap 11.4, BUN 9, Creatinine 0.50 L, Estimated Creat Clear 69, Estimated GFR 161, Est GFR ( Amer) 195, Glucose 106 H, Calcium 8.8, Magnesium 2.2, Total Bilirubin 1.4 H, AST 47, ALT 57, Alkaline Phosphatase 56, Total Protein 7.8, Albumin 4.4, Globulin 3.4 H, Albumin/Globulin Ratio 1.3 I & O for Last 24 hours: Intake & Output 01/24/25 01/25/25 01/26/25 01/27/25 11:59 11:59 11:59 11:59 Weight 173 lb 8 oz Constitutional Constitutional: mild distress *Routine Respiratory Exam Respiratory: Present decreased breath sounds; Absent rhonchi or crackles *Routine Cardiovascular Exam Cardiovascular: Present RRR; Absent murmur, gallop or rubs *Routine Extremities Exam Extremities: Absent edema *Routine Neurological Exam Neurological: Present alert, oriented X3 and CN II-XII intact Progress Note: A&P Assessment and plan (1) Abnormal echocardiogram: Status: Acute (2) Chronic hyponatremia: Status: Acute (3) 1st degree AV block: Status: Acute (4) Anxiety: Status: Chronic (5) Insomnia: Status: Chronic (6) HFrEF (heart failure with reduced ejection fraction): Status: Acute (7) CAD (coronary artery disease): Status: Chronic (8) History of coronary artery bypass graft: Status: Chronic (9) Hypertension: Status: Chronic (10) Hyperlipidemia: Status: Chronic Assessment and Plan Assessment and Plan for All Diagnoses:: 1. Shortness of breath with new wall motion abnormalities on echocardiogram -Echo, 01/13/2025, EF 40-45%, severe hypokinesis of the septal, anterior and anteroseptal LV gimenez. Mild RV dilation with normal function. Biatrial dilation. Moderate AAS with IRENE 1.1 cm?. Mild AI/PI/MR. -Left heart catheterization today 2. CAD with history of CABG and coronary stenting -Left heart catheterization today -Continue aspirin 3. Anxiety and insomnia Defer to Dr. Mcneil 4. Hypertension, -Recently improved on combination of bisoprolol, irbesartan and nifedipine -Renal duplex and renal ultrasound, 01/13/2025, normal except small right renal cyst. 5. Chronic abnormal EKG with prolonged first-degree AV block -Recent EKG in the ER, 01/21/2025, shows what appears to be sinus rhythm with brief paroxysmal SVT/wandering atrial pacemaker 6. Hyperlipidemia -On ezetimibe/simvastatin -LDL 53, 01/24/2025 7. Aortic stenosis, moderate -Echo, 01/13/2025, IRENE 1.1 cm? 8. Abnormal EKG with chronic first-degree AV block -Recent paroxysmal SVT versus MAT on EKG, 01/21/2025 -48-hour Holter monitor. 9. HFrEF -GDMT with beta-yuliya, SGLT2 inhibitor, ARB 10. Chronic hyponatremia -Chronic alcohol use Proceed with left heart catheterization via right femoral approach today for further evaluation of new wall motion abnormalities on recent echocardiogram.
--- NOTE | 2025-01-27 11:39 | IR_ITS ---
APPROVED REPORT Patient Location: [facility] Manager: ARIES Montalvo RT (R) PROCEDURES Left heart catheterization Left ventriculogram Selective coronary angiogram Selective engagement of the left internal mammary artery to the LAD Selective engagement of the saphenous vein graft to the circumflex artery Selective engagement of the saphenous vein graft to the diagonal artery Selective engagement of the saphenous vein graft to the right coronary Drug-eluting stent deployment to the ostial proximal and mid saphenous vein graft supplying the circumflex INDICATION Acute coronary syndrome, Coronary artery disease, History of coronary bypass surgery Informed consent was obtained prior to the procedure. COMPLICATIONS NONE Estimated Blood Loss: LESS THAN 10 ML TECHNIQUE One percent lidocaine used to anesthetize the right groin. The right femoral artery was accessed via the Seldinger technique and a 5 Italian sheath was placed in the right femoral artery. A JL 4, JR4 catheter were used to perform left heart catheterization, left ventriculogram selective coronary angiography as well as selective engagement of the 3 vein grafts and the left internal mammary artery. At the end the diagnostic angiogram therapeutic heparin was administered giving a therapeutic ACT and an LCB guide catheter was placed in the saphenous vein graft to the circumflex artery. A Choice PT extra-support wire was placed distally and a 2.25 x 12 mm Joni frontier stent was delivered reducing a critical stenosis to less than 10%. Delivering the stent required significant amount of manipulation in order to traverse the unusually calcified vein graft. Following this an additional 2.25 x 38 mm [place] frontier stent was placed in the ostial proximal segment and deployed at 26 florencia. A guide liner was then advanced and a 2.25 x 22 mm [place] frontier stent was placed between the 2 stents connecting the 2 stents and then deployed at 25 florencia. Excellent angiograph results were obtained. At the end the procedure the apparatus was removed the groin was reprepped closure change sheath was removed and hemostasis was achieved using Perclose device patient was transferred to the postop boarding in stable condition ANGIOGRAPHIC RESULTS The left main artery Has an ostial 20 to 30% stenosis The left anterior descending artery Has proximal 50 then 70% stenosis followed by mid vessel 80 to 90% stenosis. There is competitive flow from the left internal mammary artery The circumflex artery Is nondominant and patent in the proximal segment and gives rise to the first obtuse marginal artery which is slightly less than 2 mm in diameter and has a proximal 80% stenosis. It gives rise to 2 small obtuse marginal arteries with 1 obtuse marginal artery. To have competitive flow from a vein graft. The right coronary artery Noted to be ostially occluded with the posterior lateral branch being filled via [id number] collaterals The LINDA ventriculogram reveals Preserved 60% The left ventricular end-diastolic pressure 10 mmHg Saphenous vein graft to the obtuse marginal artery has high-grade ostial stenosis with calcified 70% mid vessel stenoses and a focal greater than 90% eccentric stenosis Saphenous to diagonal artery ostially occluded Saphenous to posterior descending artery is widely patent IMPRESSION Coronary artery disease as described above Successful drug-eluting stent deployment to the ostial proximal mid saphenous vein graft supplying the obtuse marginal artery critical disease reduced to 0% with 3 contiguous drug-eluting stents Patent CLAY to LAD Patent saphenous vein graft to posterior descending artery Chronically occluded right coronary artery in which the posterior lateral branch fills via [id number] collaterals Preserved ejection fraction Normal LVEDP PLAN 1. Dual antiplatelet therapy 2. Cardiac rehabilitation 3. Avoidance of tobacco products 4. Risk factor modification 5. LDL less than 55 to be achieved with high intensity statin Electronically signed by : Charanjit Rodas MD 01/27/2025 14:39:06
[2025-01-27 12:21] LABS: NT Pro Brain Natriuretic Pep. 490 pg/mL (0-450); Troponin I < 0.01 ng/ml (0.00-0.034)
[2025-01-27 12:39] LABS: NT Pro Brain Natriuretic Pep. 487 pg/mL (0-450)
[2025-01-27] MEDS: LIDOCAINE 1% 10ML MDV 10 ML IJ (13:29)
[2025-01-27] MEDS: 0.9 % SODIUM CHLORIDE 500 ML 25 ML IV (13:30)
[2025-01-27] MEDS: HEPARIN 1,000 UNITS/500ML NS (CATH LAB) 3000 UNIT IV (13:30)
[2025-01-27] MEDS: FENTANYL 100MCG/2ML VIAL 50 MCG IV (14:06)
[2025-01-27] MEDS: HEPARIN 1,000 UNITS/ML 10ML VIAL (CATH LAB) 5000 UNIT IV (14:06)
[2025-01-27] MEDS: MIDAZOLAM HCL 1MG/ML 5ML VIAL 1 MG IV (14:06)
[2025-01-27] MEDS: IOPAMIDOL-370 (76%);100ML BOTTLE 130 ML IV (14:24)
[2025-01-27 14:25] LABS: CATHL Activated Clotting Time 321 SEC (74-125)
--- NOTE | 2025-01-27 16:05 | P.HPDS_ITS ---
General Admission date:: 01/27/25 *Admission Date: 01/27/25 *Chief complaint: Chest pain *History of present illness: Chucky Watts is a 79-year-old male with a medical history significant for CAD/CABG who presented to cardiology clinic with worsening shortness of breath, jitteriness. Recent ECHO showed severe wall motion abnormalities and therefore cardiology requested direct admission to which he accepted. CBC, CMP, troponin, EKG unremarkable at this time. Patient will be undergoing cardiac catheterization today. On my evaluation, patient was laying in bed without chest pain, shortness of breath. Amenable to C today. No other concerns. [facility] Disclaimer: The information contained in this section may have been updated after the patient was seen, as this information can be updated by other users. Medical History HFrEF (heart failure with reduced ejection fraction) LV dysfunction Left carotid bruit Cardiomyopathy Hyperlipidemia Hypertension Surgical History History of coronary artery bypass graft Social History (Updated 01/27/25 @ 10:15 by Corinna Felix RN) Smoking Status: Former smoker second hand exposure: No alcohol intake: never substance use type: denies use current occupational status: retired Travel in the last 8 weeks?: Inside the [place] household members: spouse and children housing: house current occupational exposures/hazards: No caffeine: Yes Have you lived/traveled outside [place] in past 30 days?: No Contact w/someone who lives/traveled outside US past 30 days?: No Exposure to someone with infectious disease in past 14 days?: No Do you have a fever (greater than 100.4 F or 38 C)?: No Have you tested positive for COVID-19?: No Exposed to someone with COVID-19 in past 14 days?: No Do you have a sore throat?: No Do you have a cough?: No Do you have any weakness?: No Are you experiencing any nausea/vomitting?: No Do you have any diarrhea?: No Are you experiencing any unusual bleeding?: No Do you have any muscle aches/pain?: No Do you have any abdominal pain?: No Are you experiencing loss of taste or smell?: No Other Medical History Have you received the Flu Vaccine for this season: No Have you received the Pneumonia Vaccine: Yes Exam Data for Last 24 hours Vital signs and Labs for Last 24 Hours: Temp Pulse Resp BP Pulse Ox O2 Del Method 97.8 F 52 L 18 142/69 H 99 Room Air 01/27/25 11:53 01/27/25 15:35 01/27/25 15:35 01/27/25 15:35 01/27/25 15:35 01/27/25 15:35 Laboratory Results - last 24 hr 01/27/25 10:29: NT-Pro-B Natriuret Pep 487 H 01/27/25 10:36: WBC 5.0, RBC 4.56 L, Hgb 14.8, Hct 41.9 L, MCV 91.9, MCH 32.5 H, MCHC 35.3, RDW 12.3, Plt Count 197, MPV 9.8, Neut % (Auto) 73.4, Lymph % (Auto) 16.0, [place] % (Auto) 9.4 H, Eos % (Auto) 0.4, Baso % (Auto) 0.6, Neut # (Auto) 3.7, Lymph # (Auto) 0.8, [place] # (Auto) 0.5, Eos # (Auto) 0.0, Baso # (Auto) 0.0, Sodium 130 L, Potassium 5.4 H, Chloride 97 L, Carbon Dioxide 27, Anion Gap 11.4, BUN 9, Creatinine 0.50 L, Estimated Creat Clear 69, Estimated GFR 161, Est GFR ( Amer) 195, Glucose 106 H, Calcium 8.8, Magnesium 2.2, Total Bilirubin 1.4 H, AST 47, ALT 57, Alkaline Phosphatase 56, Troponin I < 0.01, NT-Pro-B Natriuret Pep 490 H, Total Protein 7.8, Albumin 4.4, Globulin 3.4 H, Albumin/Globulin Ratio 1.3 01/27/25 13:44: Activated Clotting Time 321 H* I & O for Last 24 hours: Intake & Output 01/24/25 01/25/25 01/26/25 01/27/25 23:59 23:59 23:59 23:59 Output Total 0 / 0 Balance 0 / 0 Weight 78.698 kg Constitutional Constitutional: no acute distress *Routine HEENT Exam Head: Present normocephalic Eye: Present EOMI and PERRL ENT: Present mucous membranes moist *Routine Neck Exam Neck: Present supple; Absent lymphadenopathy *Routine Respiratory Exam Respiratory: Present CTA bilaterally *Routine Cardiovascular Exam Cardiovascular: Present RRR *Routine Abdominal Exam Abdominal: Present soft and normoactive bowel sounds; Absent tenderness *Routine Rectal Exam Rectal:: deferred *Routine Genitalia Exam Genitalia:: deferred *Routine Extremities Exam Extremities: Absent cyanosis, clubbing or edema *Routine Skin Exam Skin: Present warm; Absent rash *Routine Neurological Exam Neurological: Present alert and oriented X3 Meds Home Medications and Allergies Home Medications ?Medication ?Instructions ?Recorded ?Confirmed ?Type aspirin 81 mg tablet,delayed 81 mg PO HS 07/15/1801/14 History release empagliflozin 10 mg tablet 10 mg PO DAILY #90 tabs 02/0701/27/25 Rx (Jardiance) nitroglycerin 0.4 mg sublingual 0.4 mg sublingual Q5M PRN chest 10/21/24 01/27/25 Rx tablet pain #25 tabs bisoprolol fumarate 10 mg tablet 5 mg PO BID 01/12/25 01/27/25 History irbesartan 75 mg tablet 75 mg PO BID 30 days #60 tab s 01/13/25 01/27/25 Rx nifedipine 30 mg tablet,extended 30 mg PO DAILY 30 day s #30 tabs 01/13/25 01/27/25 Rx release 24 hr (Procardia XL) clopidogrel 75 mg tablet 75 mg PO DAILY 30 days #30 t abs 01/27/25 Rx ezetimibe 10 mg-simvastatin 80 mg 1 tab PO DAILY 10/80 mg 01/27/25 01/27/25 History tablet New Prescriptions to Start Prescriptions: Saji Fang Allergies Allergy/AdvReac Type Severity Reaction Status Date / Time hydrochlorothiazide AdvReac Mild low sodium Verified 01/27/25 08:53 lisinopril AdvReac Mild cough Verified 01/27/25 08:53 Hospital Course Hospital Course Hospital Course: Chucky aWtts is a 79-year-old male with a medical history significant for CAD/CABG who presented to cardiology clinic with worsening shortness of breath, jitteriness. Recent ECHO showed severe wall motion abnormalities and therefore cardiology requested direct admission to which he accepted. CBC, CMP, troponin, EKG unremarkable at this time. Patient will be undergoing cardiac catheterization today. On my evaluation, patient was laying in bed without chest pain, shortness of breath. Amenable to [facility] today. No other concerns. #Angina equivalent #History of CAD, CABG ? Cardiology consulted, s/p PCI with 3 stents to ostial proximal mid saphenous vein graft. Patient tolerated procedure well. Feels much better. ? Started Plavix 75 mg, continue aspirin 81 mg, bisoprolol 5 mg twice daily, simvastatin. ? Will follow-up with cardiology within 1 week. #Hypertension ? Continue home nifedipine 30 mg XL, irbesartan 75 mg twice daily, bisoprolol. #Hyperlipidemia ? Continue home ezetimibe, simvastatin. Results Data Completed and Pending Labs on day of discharge: Labs from last 24 hours 01/27/25 01/27/25 01/27/25 13:44 10:36 10:29 WBC 5.0 RBC 4.56 L Hgb 14.8 Hct 41.9 L MCV 91.9 MCH 32.5 H MCHC 35.3 RDW 12.3 Plt Count 197 MPV 9.8 Neut % (Auto) 73.4 Lymph % (Auto) 16.0 [place] % (Auto) 9.4 H Eos % (Auto) 0.4 Baso % (Auto) 0.6 Neut # (Auto) 3.7 Lymph # (Auto) 0.8 [place] # (Auto) 0.5 Eos # (Auto) 0.0 Baso # (Auto) 0.0 Activated Clotting Time 321 H* Sodium 130 L Potassium 5.4 H Chloride 97 L Carbon Dioxide 27 Anion Gap 11.4 BUN 9 Creatinine 0.50 L Estimated Creat Clear 69 Estimated GFR 161 Est GFR ( Amer) 195 Glucose 106 H Calcium 8.8 Magnesium 2.2 Total Bilirubin 1.4 H AST 47 ALT 57 Alkaline Phosphatase 56 Troponin I < 0.01 NT-Pro-B Natriuret Pep 490 H 487 H Total Protein 7.8 Albumin 4.4 Globulin 3.4 H Albumin/Globulin Ratio 1.3 DS: Diagnosis Discharge Diagnosis (1) Abnormal echocardiogram: Status: Acute Code(s): R93.1 - Abnormal findings on diagnostic imaging of heart and coronary circulation (2) Chronic hyponatremia: Status: Acute Code(s): E87.1 - Hypo-osmolality and hyponatremia (3) 1st degree AV block: Status: Acute Code(s): I44.0 - Atrioventricular block, first degree (4) Anxiety: Status: Chronic Code(s): F41.9 - Anxiety disorder, unspecified (5) Insomnia: Status: Chronic Code(s): G47.00 - Insomnia, unspecified Qualifiers: Insomnia type: unspecified Qualified Code(s): G47.00 - Insomnia, unspecified (6) HFrEF (heart failure with reduced ejection fraction): Status: Acute Code(s): I50.20 - Unspecified systolic (congestive) heart failure (7) CAD (coronary artery disease): Status: Chronic Code(s): I25.10 - Atherosclerotic heart disease of [place] coronary artery without angina pectoris Qualifiers: Associated angina: without angina Coronary Disease-Associated Artery/Lesion type: [place] artery [place] vs. transplanted heart: [place] heart Qualified Code(s): I25.10 - Atherosclerotic heart disease of [place] coronary artery without angina pectoris (8) History of coronary artery bypass graft: Status: Chronic Code(s): Z95.1 - Presence of aortocoronary bypass graft (9) Hypertension: Status: Chronic Code(s): I10 - Essential (primary) hypertension Qualifiers: Hypertension type: essential hypertension Qualified Code(s): I10 - Essential (primary) hypertension (10) Hyperlipidemia: Status: Chronic Code(s): E78.5 - Hyperlipidemia, unspecified Qualifiers: Hyperlipidemia type: mixed hyperlipidemia Qualified Code(s): E78.2 - Mixed hyperlipidemia Discharge Plan Disposition Patient Disposition: Home, Self-Care Condition: Fair Follow up Plan Follow up with: Owen Merrill PA [Physician Manager Vehicle, Cardiology] - 1 week Prescriptions/Medication Reconciliation: New clopidogrel 75 mg Tablet 75 mg PO DAILY 30 Days Qty: 30 0RF Continued Jardiance 10 mg tablet 10 mg PO DAILY Qty: 90 3RF nitroglycerin 0.4 mg tablet, sublingual 0.4 mg sublingual Q5M PRN (Reason: chest pain) Qty: 25 0RF Rx Instructions: do not exceed 3 doses per episode bisoprolol fumarate 10 mg tablet 5 mg PO BID irbesartan 75 mg Tablet 75 mg PO BID 30 Days Qty: 60 0RF nifedipine [Procardia XL] 30 mg tablet extended release 24hr 30 mg PO DAILY 30 Days Qty: 30 0RF ezetimibe-simvastatin 10-80 mg tablet 1 tab PO DAILY aspirin 81 MG tablet,delayed release (DR/EC) 81 mg PO HS Problem Reconciliation Problems Reviewed?: Yes Patient Discharge Instructions Patient Instructions: DI for Cardiac Catheterization, DI for Atypical Chest Pain, DI for Surgical Site Infection, Stop Light Heart Failure Print Language: Irish Providers Primary Care Provider: Henrique Quiñones Admit Provider: Saji Mcneil Attending Provider: Saij Mcneil
--- NOTE | 2025-01-28 10:08 | SW/DCPLANNER ---
Spoke with patient on the phone. Patient stated that he is doing good. Patient stated that he is aware of his upcoming appointment. Patient stated that he went to [facility] [place] and they have not filled his new medicine jsut yet. Patient stated that he has no concerns or questions at this time. Rosie ALVA Biology Manager
== END 2025-01-27 17:49 | disposition home or self-care (01) ==
PROVIDERS: Internal Medicine; Physician Assistant; Admitting Provider Student in an Organized Health Care Education/Training Program; PCP Internal Medicine Adolescent Medicine; Visit Provider Student in an Organized Health Care Education/Training Program
PROC: 4A023N7 Measurement of Cardiac Sampling and Pressure, Left Heart, Percutaneous Approach (ICD-10-PCS; CPT 93452; principal; 2025-01-27 12:00)
DX: I25.118 Atherosclerotic heart disease of native coronary artery with other forms of angina pectoris (principal); I11.0 Hypertensive heart disease with heart failure; I50.21 Acute systolic (congestive) heart failure; R93.1 Abnormal findings on diagnostic imaging of heart and coronary circulation; E87.1 Hypo-osmolality and hyponatremia; I44.0 Atrioventricular block, first degree; F41.9 Anxiety disorder, unspecified; G47.00 Insomnia, unspecified; E78.2 Mixed hyperlipidemia; R00.1 Bradycardia, unspecified; I35.0 Nonrheumatic aortic (valve) stenosis; F10.90 Alcohol use, unspecified, uncomplicated; I42.9 Cardiomyopathy, unspecified; Z95.5 Presence of coronary angioplasty implant and graft; Z95.1 Presence of aortocoronary bypass graft; Z87.891 Personal history of nicotine dependence; Z88.8 Allergy status to other drugs, medicaments and biological substances; Z79.899 Other long term (current) drug therapy; Z79.82 Long term (current) use of aspirin
CPT/HCPCS: 80053; 83735; 83880; 84484; 85025; 85347; 93005; 93458; 96361; 96374; 96375; 96376; 99152; 99153; C1725; C1760; C1769; C1874; C1894; G0378; J1200; J1644; J2003; J2250; J3010; J7040; Q9967

== ENCOUNTER 2025-02-17 13:23 | Emergency (ER) | payer MEDICARE, BC, SELFPAY ==
--- OUTSIDE RECORDS SUMMARY | 2024-12-31 09:45 | XMS_ITS | Encounter Summary ---
Author Organization [facility] Address [address] [place] [address] Care Team Providers Care Radiator Fitter Name Role Phone Henrique Quiñones MD Primary Care Provider [phone] Encounter Details Date Type Department Care Team (Late st Contact Info) Description 12/31/2024 9:45 AM EDT Office Visit [facility] [address] [place] [address] Saji Phan MD [address] [address] Bilateral dry eyes (Primary Dx); [...] lesions Refraction Manifest Refraction (Auto) Sphere Cylinder [place] Dist VA Right -0.50 +0.75 010 20/20 [...] documented as of this encounter Care Teams Radiator Fitter Relationship Specialty Start Date End Date Henrique Quiñones MD [address] [place] [address] PCP - General 10/27/20 documented as of this encounter
--- NOTE | 2025-02-17 13:26 | ED_ITS ---
<Statement entered by Topher Lucas MD - 02/17/25 15:25> I was consulted by the ROBERTO, and we discussed the complexity of the problems being addressed. I approved the treatment and management plan for this patient's care in the emergency department, thus performing a substantive portion of the medical decision making. Topher Lucas MD, MARCOS, FACEP Discharge Plan Disposition Patient Disposition: Home, Self-Care Condition: Good Prescriptions Prescriptions: No Action nitroglycerin 0.4 mg tablet, sublingual 0.4 mg sublingual Q5M PRN (Reason: chest pain) Qty: 25 0RF Rx Instructions: do not exceed 3 doses per episode clopidogrel 75 mg tablet 75 mg PO DAILY Qty: 90 3RF Jardiance 10 mg tablet 10 mg PO DAILY Qty: 90 3RF bisoprolol fumarate 10 mg tablet 5 mg PO BID Qty: 180 3RF irbesartan 75 mg tablet 75 mg PO BID Qty: 180 3RF nifedipine [Procardia XL] 30 mg tablet extended release 24hr 30 mg PO DAILY Qty: 90 3RF ezetimibe-simvastatin 10-80 mg tablet 1 tab PO DAILY aspirin 81 MG tablet,delayed release (DR/EC) 81 mg PO HS nifedipine 30 mg tablet extended release 24hr 30 mg PO DAILY clopidogrel 75 mg tablet 75 mg PO DAILY Jardiance 10 mg tablet 10 mg PO DAILY Referrals Follow up/Referrals: Henrique Quiñones MD [Primary Care Provider, Internal Medicine] - See instructions Ella Trinidad APRN [Advanced Registered DIRECTOR PHARMACEUTICAL, Behavioral Health] - See instructions Activity Restrictions/Add. Instructions Additional Instructions/Restrictions: Please follow-up with behavioral health specialist after your discharge from the emergency department. Please go straight to her office. Please follow-up with your PCP and other providers. Please return to the emergency department with any worsening signs or symptoms. Clinical Impressions Clinical Impression: Anxiety Insomnia Qualifiers: Insomnia type: unspecified Qualified Code(s): G47.00 - Insomnia, unspecified Instructions Patient Instructions: Anxiety Disorders, DI for Insomnia Print Language Print Language: Greenlandic Discharge ED Provider: Topher Lucas General Adult HPI General Chief complaint: Anxiety Stated complaint: States he doesnt feel right & not sleeping Time Seen by Provider: 02/17/25 13:26 Mode of Arrival: Ambulatory Source of Information: Patient Limitations: No Limitations History of Present Illness HPI narrative: 79-year-old male presents to the emergency department accompanied by his , for a 3-month history of insomnia difficulty initiating sleep and staying asleep, patient states he just does not feel right , states his middle and upper quite some time, he believes it may be a side effect of my medication . Patient has been following columnist has switched around his antihypertensives, patient denies any fever chills chest pain shortness of breath nausea vomiting constipation diarrhea no urinary type symptomatology, patient denies any alcohol tobacco or drug use, no lightheadedness, no headache, patient actively at the bedside denies any SI or HI, when asked the patient what changed today which prompted emergency department visit as this been going on for 3 months, patient states I am just tired of it . Other past medical history is consistent with AV block, insomnia, anxiety, hyperlipidemia, hypertension, coronary artery disease status post multiple stent placements. Initial triage vitals are unremarkable. Please note that above description of symptoms, in this electronic medical record under categorization of recalled from ER triage doctor by RN are reflective of an initial nursing assessment, however, is not reflective of my full history and physical exam that was personally taken and clarified. Consequentially, this preceding description of symptoms, which may include the patient's categorized chief complaint in the EMR, do not reflect my personal clinical impression, and the ultimate description of history of present illness and patient stated complaints should be deferred to this section of the note. Unless stated otherwise or congruent with this section of the note, additional signs, symptoms, or incongruence should be interpreted as inaccurate with my clinical impression. Onset (ago): month(s) Related Data Home Medications ?Medication ?Instructions ?Recorded ?Confirmed aspirin 81 mg tablet,delayed 81 mg PO HS 07/15/1801/15 release ezetimibe 10 mg-simvastatin 80 mg 1 tab PO DAILY 10/80 mg 01/27/25 02/03/25 tablet clopidogrel 75 mg tablet 75 mg PO DAILY 02/17/2510/08 empagliflozin 10 mg tablet 10 mg PO DAILY 02/17/2510/08 (Jardiance) nifedipine 30 mg tablet,extended 30 mg PO DAILY 02/17/25 release 24 hr Previous Rx's ?Medication ?Instructions ?Recorded nitroglycerin 0.4 mg sublingual 0.4 mg sublingual Q5M PRN chest 10/21/24 tablet pain #25 tabs bisoprolol fumarate 10 mg tablet 5 mg (06/17 x 10 mg) PO BID #180 tabs 02/03/25 clopidogrel 75 mg tablet 75 mg PO DAILY #90 tabs 01/15 07/10 empagliflozin 10 mg tablet 10 mg PO DAILY #90 tabs (Jardiance) irbesartan 75 mg tablet 75 mg PO BID #180 tabs 02/03 nifedipine 30 mg tablet,extended 30 mg PO DAILY #90 ta bs 02/03/25 release 24 hr (Procardia XL) Allergies Allergy/AdvReac Type Severity Reaction Status Date / Time hydrochlorothiazide AdvReac Mild low sodium Verified 02/03/25 09:42 lisinopril AdvReac Mild cough Verified 02/03/25 09:42 [facility] Disclaimer: The information contained in this section may have been updated after the patient was seen, as this information can be updated by other users. Medical History HFrEF (heart failure with reduced ejection fraction) LV dysfunction Left carotid bruit Cardiomyopathy Hyperlipidemia Hypertension Surgical History History of coronary artery bypass graft Social History Smoking Status: Never smoker second hand exposure: No alcohol intake: never substance use type: denies use current occupational status: retired Travel in the last 8 weeks?: Inside the [place] household members: spouse and children housing: house current occupational exposures/hazards: No caffeine: Yes Have you lived/traveled outside US in past 30 days?: No Contact w/someone who lives/traveled outside US past 30 days?: No Exposure to someone with infectious disease in past 14 days?: No Do you have a fever (greater than 100.4 F or 38 C)?: No Have you tested positive for COVID-19?: No Exposed to someone with COVID-19 in past 14 days?: No Do you have a sore throat?: No Do you have a cough?: No Do you have any weakness?: No Do you have any diarrhea?: No Are you experiencing any unusual bleeding?: No Do you have any muscle aches/pain?: No Do you have any abdominal pain?: No Are you experiencing loss of taste or smell?: No Other Medical History Have you received the Flu Vaccine for this season: No Have you received the Pneumonia Vaccine: Yes ROS Obtained: Yes All systems reviewed & no additional complaints except as documented Physical Exam General General appearance: alert, in no apparent distress and anxious Head Head exam: atraumatic and normocephalic Eye Eye exam: Present PERRL and EOMI ENT ENT exam: Present mucous membranes moist Neck Neck exam: Present normal inspection Chest Chest inspection: Present normal inspection and symmetric chest wall rise Respiratory Respiratory exam: Present normal lung sounds bilaterally; Absent respiratory distress Cardiovascular Cardiovascular exam: Present regular rate and normal rhythm Abdominal Exam Abdominal exam: Present soft; Absent tenderness, guarding or rebound Extremities Exam Extremities exam: Present normal inspection Neurological Exam Neurological exam: Present alert and oriented X3 Psychiatric Psychiatric exam: Present normal affect and anxious Skin Skin exam: Present warm and dry Medical Decision Making Medical Records Medical records reviewed: Yes I reviewed the patient's medical records. Screening: Per USPSTF and CDC recommendations, given the prevalence of disease in our region, it is our hospital?s policy to screen for HIV and viral Hepatitis for all patients aged 18 and over and those with ongoing risk factors. Jacob Inquiry Pt receiving controlled substance: No Jacob was queried for this patient: No Vital Signs: 02/17/25 13:38 Temperature 97.9 F Temperature Source Oral Pulse Rate [Right] 60 Respiratory Rate 18 Blood Pressure [Right Arm] 180/82 H Blood Pressure Mean [Right Arm] 114 02 Sat by Pulse Oximetry 99 Oxygen Delivery Method Room Air Lab Data Lab results reviewed: Yes I reviewed the patient's lab results. Lab Results 02/17/25 13:37: POC Glucose 129 H 02/17/25 14:05: WBC 4.5 L, RBC 4.36 L, Hgb 14.0 L, Hct 39.5 L, MCV 90.6, MCH 32.1 H, MCHC 35.4, RDW 12.2, Plt Count 194, MPV 9.0, Neut % (Auto) 68.9, Lymph % (Auto) 17.0, [place]usk % (Auto) 12.8 H, Eos % (Auto) 0.7, Baso % (Auto) 0.2, Neut # (Auto) 3.1, Lymph # (Auto) 0.8, Rusk # (Auto) 0.6, Eos # (Auto) 0.0, Baso # (Auto) 0.0, PT 11.9, INR 1.08, Sodium 130 L, Potassium 4.6, Chloride 98, Carbon Dioxide 25, Anion Gap 11.6, BUN 12, Creatinine 0.60 L, Estimated Creat Clear 66, Estimated GFR 131, Est GFR ( Amer) 158, Glucose 120 H, Calcium 9.4, Magnesium 2.1, Total Bilirubin 0.9, AST 36, ALT 34, Alkaline Phosphatase 57, Troponin I < 0.01, NT-Pro-B Natriuret Pep 281, Total Protein 7.6, Albumin 4.4, Globulin 3.2, Albumin/Globulin Ratio 1.4 02/17/25 14:27: Urine Color Yellow, Urine Appearance Clear, Urine pH 6.5, Ur Specific [place] 1.010, Urine Protein Negative, Urine Glucose (UA) 3+, Urine Ketones Negative, Urine Blood Negative, Urine Nitrate Negative, Urine Bilirubin Negative, Urine Urobilinogen 0.2, Ur Leukocyte Esterase Negative, Urine Methadone Screen Negative, Ur Barbituates Screen Negative, Ur Amphetamines Screen Negative, U Benzodiazepines Scrn Negative, U Marijuana (THC) Screen Negative 02/17/25 14:05 02/17/25 14:05 Orders (Tests/Meds): ORDERS Category Date Time Status Consult to Behavioral Health [CONS] Stat Cons 02/17/25 14:09 Active Complete Blood Count Auto Diff Stat Lab 02/17/25 14:05 Completed Comprehensive Metabolic Panel Stat Lab 02/17/25 14:05 Completed Drug Screen,Urine Stat Lab 02/17/25 14:27 Results Magnesium Stat Lab 02/17/25 14:05 Completed NT Pro Brain Natriuretic Pep. Stat Lab 02/17/25 14:05 Completed POC Glucose,Bedside Routine Lab 02/17/25 13:37 Completed PT INR [Prothrombin Time INR] Stat Lab 02/17/25 14:05 Completed Troponin I Q3H Lab 02/17/25 17:00 Ordered Troponin I Q3H Lab 02/17/25 20:00 Ordered Troponin I Stat Lab 02/17/25 14:05 Completed Urinalysis and Microscopic Stat Lab 02/17/25 14:27 Results Medical Decision Narrative: 79-year-old male presents the emergency department with multiple complaints, primary being insomnia see HPI for detailed past medical history, differential diagnose include but not limited to, insomnia, cardiac arrhythmia, electrolyte disturbance, medication side effect, generalized anxiety disorder, panic attack, toxic ingestion. I discussed this patient's case with the attending physician Dr. Lucas Will obtain EKG basic laboratory studies drug screen magnesium level proBNP PT/INR troponin urinalysis POC glucose is 129 Of note, nursing staff also triaged the patient and spoke to him about SI HI, he denies actively any SI or HI but states that I believe I am at the end of my life ., Thus will consult behavioral health specialist for evaluation/consultation here in the emergency department. CBC is unremarkable Coags within normal CMP is notable for mild hyponatremia 130, which is similar to his previous, otherwise unremarkable CMP. UA is notable for 3+ glucose urea, negative nitrites, negative leukocyte esterase. I discussed this patient's case with the behavioral health NETWORK ARCHITECT MANAGER Ella Trinidad at approximately, 2:45 PM, she states she will see the patient in clinic today directly after emergency department visit. Discussed patient's case in depth with her, patient actively denies any SI or HI, I do believe he is appropriate for outpatient follow-up today. UDS negative Initial troponin within normal limits. I discussed these results and recommendations with the patient and family bedside patient and family in agreement with current treatment plan/discharge plan, patient will follow-up with behavioral health provider, after discharge from the emergency department, patient again actively denies any SI or HI. Patient was given strict ED return precautions. Patient follow-up PCP and other providers as directed. Patient and family voiced understanding and agreement to current treatment plan/discharge plan. Critical Care Critical Care Time Critical Care Time: No
--- NOTE | 2025-02-17 13:33 | ECG_ITS ---
APPROVED REPORT Exam: Resting ECG HR:63 bpm ECG Measurements Heart Rate 63 AXES MD 337 P 83 QRSd 110 QRS 72 QT 400 T -64 QTc 408 Conclusion SINUS RHYTHM WITH FIRST DEGREE AV BLOCK POSSIBLE INFERIOR MYOCARDIAL INFARCTION , OF INDETERMINATE AGE [30 ms Q WAVE IN II/aVF] ABNORMAL ECG UNCONFIRMED REPORT Electronically signed by : Manoj Lucas, 02/17/2025 15:27:52
[2025-02-17 13:38] VITALS: BP 180/82; PULSE 60; RESP 18; TEMP 36.6; O2SAT 99; BMI 25.2
[2025-02-17 13:45] LABS: POC Glucose,Bedside 129 gm/dL (70-110)
--- OUTSIDE RECORDS SUMMARY | 2025-02-17 13:46 | XMS_ITS | Encounter Summary ---
Author Organization Healthcare Address [address] [place] [address] Care Team Providers Care Chute Greaser Name Role Phone Henrique Quiñones MD Primary Care Provider [phone] Encounter Details Date Type Department Care Team [...] documented as of this encounter Care Teams Chute Greaser Relationship Specialty Start Date End Date Henrique Quiñones MD [address] [place] [address] PCP - General 10/27/20 documented as of this encounter
--- OUTSIDE RECORDS SUMMARY | 2025-02-17 13:46 | XMS_ITS | Clinical Summary ---
Author Organization [facility] Address [address] [place] [address] Care Team Providers Care Drum Sander Setter Name Role Phone Unavailable Primary Care Provider [...] series) COVID-19 Vaccine ( - 2023- season) 2025 INFLUENZA VACCINE 03/16/2025 Insurance MEDICARE A & B [facility]
--- OUTSIDE RECORDS SUMMARY | 2025-02-17 13:46 | XMS_ITS | Encounter Summary ---
Author Organization Healthcare Address [address] [place] [address] Care Team Providers Care Foster Care Therapist Name Role Phone Henrique Quiñones MD Primary Care Provider [phone] Encounter Details Date Type Department Care Team [...] documented as of this encounter Care Teams Foster Care Therapist Relationship Specialty Start Date End Date Henrique Quiñones MD [address] [place] [address] PCP - General 10/27/20 documented as of this encounter
--- OUTSIDE RECORDS SUMMARY | 2025-02-17 13:46 | XMS_ITS | Clinical Summary ---
Author Organization [facility] Address [address] [place] [address] Care Team Providers Care Engraver Jewelry Name Role Phone Henrique Quiñones MD Primary Care Provider [phone] Allergies Active Allergy Reactions Criticality Noted Date [...] Description 12/31/2024 9:45 AM EDT Office Visit [facility] [address] [place] [phone] Saji Phan MD Bilateral dry eyes (Primary [...] or (1 - 1-dose 75+ series) 2022 [id number] Vaccine ( season) 2024 05/21/2021, 07/24/2020, 06/22/2020 [...] this topic Insurance MEDICARE [employer] Care Teams Engraver Jewelry Relationship Specialty Start Date End Date Henrique Quiñones MD [address] [place] [address] PCP - General 10/27/20
--- OUTSIDE RECORDS SUMMARY | 2025-02-17 13:46 | XMS_ITS | Encounter Summary ---
Author Organization [facility] Address [address] [place] [id number] Care Team Providers Care Skates Operator Name Role Phone Provider, No Known Primary Care Provider Unavail able Encounter Details Date Type Department Care Team (Late st Contact Info) Description 12/14/2015 External CPT II [facility] Social History Tobacco Use [...] on filedocumented in this encounter Care Teams Skates Operator Relationship Specialty Start Date End Date Provider, [place] [address] PCP - General 01/07/17 01/08/17 documented as of this encounter
--- NOTE | 2025-02-17 13:53 | PC.NURSE ---
calling [facility] at this time.
--- NOTE | 2025-02-17 14:11 | PC.NURSE ---
i spoke with behavioral health. States they will be available @230
[2025-02-17 14:17] LABS: Hematocrit 39.5 % (42.0-52.0); Hemoglobin 14.0 g/dL (14.1-18.0); Immature Granulocytes % 0.4 %; Mean Corpuscular HGB Conc 35.4 g/dL (31.8-35.4); Mean Corpuscular Hemoglobin 32.1 pg (27.0-31.2); Mean Corpuscular Volume 90.6 fl (80-94); Nucleated Red Blood Cells % 0 %; Platelet Count 194 K/mm3 (142-424); Red Blood Count 4.36 M/mm3 (4.60-6.20); Red Cell Distribution Width-SD 40.2 fL; White Blood Count 4.5 K/mm3 (4.8-10.8)
[2025-02-17 14:23] LABS: INR 1.08 (0.9-1.1); Prothrombin Time 11.9 seconds (10.1-12.5)
[2025-02-17 14:29] LABS: Albumin Level 4.4 g/dl (3.5-5.0); Chloride 98 mmol/L (98-107); Sodium 130 mmol/L (136-145)
[2025-02-17 14:30] LABS: Potassium 4.6 mmoL/L (3.5-5.1)
[2025-02-17 14:32] LABS: Alanine Aminotransferase 34 U/L (12-78); Albumin/Globulin Ratio 1.4 (1.1-1.8); Anion Gap 11.6 mEq/L (5-15); Aspartate Amino Transferase 36 U/L (17-59); Blood Urea Nitrogen 12 mg/dl (9-20); Carbon Dioxide 25 mmol/L (22.0-30.0); Creatinine Clearance Estimated 66 mL/min (50-200); Creatinine,Serum 0.60 mg/dl (0.66-1.25); Estimated Glomerular Filt Rate 131 ml/min (>60); GFR (African American) 158 ML/MIN (>60); Globulin 3.2 g/dL (1.3-3.2); Total Protein,Serum 7.6 g/dl (6.3-8.2)
[2025-02-17 14:33] LABS: Alkaline Phosphatase 57 U/L (38-126); Bilirubin,Total 0.9 mg/dl (0.2-1.3); Calcium 9.4 mg/dl (8.4-10.2); Glucose 120 mg/dl (74-100); Magnesium 2.1 mg/dl (1.6-2.3)
[2025-02-17 14:36] LABS: Microscopic, Urine URINE MICROSCOPIC (MICROSCOPIC)
[2025-02-17 14:39] LABS: Bilirubin,Urine Negative (Negative); Color,Urine YELLOW (Yellow); Glucose,Urine (UA) 3+ (Negative); Ketones,Urine Negative (Negative); Leukocyte Esterase,Urine Negative (Negative); PH,Urine 6.5 (5.0-8.5); Protein,Urine Negative (Negative); Specific Gravity, Urine 1.010 (1.005-1.030); Urobilinogen,Urine 0.2 EU/dl (0.2)
[2025-02-17 14:42] LABS: NT Pro Brain Natriuretic Pep. 281 pg/mL (0-450)
[2025-02-17 14:52] LABS: Barbiturates Screen,Urine Negative ng/ml (<200)
[2025-02-17 14:53] LABS: Amphetamine/Metha Screen,Urine Negative ng/ml (<1000); Benzodiazepines Screen,Urine Negative ng/ml (<200)
[2025-02-17 14:54] LABS: Methadone Screen,Urine Negative ng/ml (<300)
[2025-02-17 14:56] LABS: Troponin I < 0.01 ng/ml (0.00-0.034)
[2025-02-17 14:56] LABS: Opiate Screen,Urine Negative ng/ml (<300); Phencyclidine Screen,Urine Negative ng/ml (<25)
[2025-02-17 14:57] LABS: Bacteria,Urine Trace /lpf; Squamous Epithelial Cell,Urine Occasional #/hpf (0-5); WBC,Urine Occasional #/hpf (0-3)
[2025-02-17 15:07] VITALS: BP 135/63; PULSE 62; RESP 18; TEMP 36.7; O2SAT 99
== END 2025-02-17 15:13 | disposition home or self-care (01) ==
PROVIDERS: Physician Assistant; Emergency Provider Student in an Organized Health Care Education/Training Program; PCP Internal Medicine Adolescent Medicine
DX: G47.00 Insomnia, unspecified (principal); F41.9 Anxiety disorder, unspecified; E78.5 Hyperlipidemia, unspecified; I10 Essential (primary) hypertension
CPT/HCPCS: 80053; 80307; 81001; 82962; 83735; 83880; 84484; 85025; 85610; 93005; 99283

== ENCOUNTER 2025-04-11 07:49 | Outpatient (CLI) | payer MEDICARE, BC, SELFPAY ==
--- OUTSIDE RECORDS SUMMARY | 2025-04-11 07:51 | XMS_ITS | Clinical Summary ---
Author Organization [facility] Address [address] [place] [address] Care Team Providers Care Carpenters Supervisor Name Role Phone Unavailable Primary Care Provider [...] - Adults (1 - 1-dose 75+ series) 3 INFLUENZA VACCINE 01/14/2025 COVID-19 Vaccine ( - 2023- season) 2025 Insurance MEDICARE A & B [facility]
--- OUTSIDE RECORDS SUMMARY | 2025-04-11 07:51 | XMS_ITS | Clinical Summary ---
Author Organization [facility] Address [address] [place] [address] Care Team Providers Care Criminal Justice Instructor Name Role Phone Henrique Quiñones MD Primary Care Provider [phone] Allergies Active Allergy Reactions Criticality Noted Date [...] disease. Hypertension 03/06/2016 Peptic ulcer disease 03/06/2016 Family History Medical History Relation Name Comments [...] [facility]-Depression Screening 1947 [facility]-Hepatitis C Screening 1945 [facility]-Medicare Annual Wellness (AWV) 1947 [facility]-/Child/Adol SDOH Screenings 1947 [facility]- SDOH Screenings 1965 [facility]-Adult SDOH Screenings 1965 [facility]-DTaP,Tdap,and Td Vaccines (1 - Tdap) 1966 [facility]-Zoster Vaccines (1 of 2) 1997 [facility]-RSV Vaccine: 60+ Years or (1 - 1-dose 75+ series) 2022 [id number] Vaccine ( - season) 2025 05/21/2021, 07/24/2020, 06/22/2020 [facility]-Influenza Vaccine (#1) 2025 [...] age to complete this topic Insurance MEDICARE [facility] Care Teams Criminal Justice Instructor Relationship Specialty Start Date End Date Henrique Quiñones MD [address] [place] [address] PCP - General 10/27/20
--- OUTSIDE RECORDS SUMMARY | 2025-04-11 07:51 | XMS_ITS | Encounter Summary ---
Author Organization [facility] Address [address] [place] [id number] Care Team Providers Care Instructional Systems Design Consultant Name Role Phone Provider, No Known Primary Care Provider Unavail able Encounter Details Date Type Department Care Team (Late st Contact Info) Description 12/14/2015 External CPT II [facility] Social History Tobacco Use [...] on filedocumented in this encounter Care Teams Instructional Systems Design Consultant Relationship Specialty Start Date End Date Provider, [place] [address] PCP - General 01/07/17 01/08/17 documented as of this encounter
--- OUTSIDE RECORDS SUMMARY | 2025-04-11 07:51 | XMS_ITS | Data Portability ---
Author Organization [facility] TIERRA Heath [place] CLOSED Address [address] [facility] [facility] [address] [place] [address] Assessment No assessment recorded. Plan of Treatment Reminders Order Date Submit Date Provider Last Modified By Organization Details Last Modified Time Details Appointments None recorded. Lab None recorded. Referral None recorded. Procedures None recorded. Surgeries None recorded. Imaging None recorded. Medication Orders omeprazole 40 mg capsule,del ayed release 2021 [email or web address] [place] [address] [facility] #[id number], [address], [id number], 2 16:28:57 sucralfate 100 mg/mL oral suspension 2021 [facility] #[id number], [address], [id number], 2 15:44:49 Patient TargetsNo targets recorded. Patient Instructions Encounter Date Encounter Id Patient Instructions Last Modified By Organization Details Last Modified Time 11/26/[address]21 [id number] Requesting results from CT scan done 2 weeks ago. HIDA scan Upper endoscopy Avoidance of NSAIDS, check with PCP about ASA use. Trial of daily omeprazole and carafate, take as prescribed. [email or web address] Not available 11/26/2021 16:32:48 Reason for Referral None Reported. Results Created Date Observation Date Name Description Value Unit Range Abnormal Flag Note LastModifiedBy Organization Detail LastModifiedTime 01/19/20 22 01/18/2022 SURGI MARTHA surgical SEE BELOW Depar tment of Patho logy Surgi martha Patho logy Repor t NAME: CHELSIE MCNEIL PATH. :[id number] Copy to: Diagn osis: Gastr ic biops y: Mild chron ic gastr itis with featu res sugge stive of a chemi martha gastr itis. Helic obact er not ident ified on immun ohist ochem ical stain for H. pylor i. No evide nce of intes tinal metap lasia or malig joe . SOURC E OF SPECI MEN: GASTR IC BIOPS Y CLINI MARTHA INFOR MATIO N: GERD R 10.11 COLLE CTION : SPECI MEN REMOV AL: [address] IN FIXAT CHANI: [address] COLD ISCHE KELSEA TIME: 0 MINUT ES TOTAL FIXAT ION TIME: 8.5 HOURS Gross Descr iptio n: Recei marie in forma winnie label ed with the patie nt's name and desig nated as delmi adelina biops y are seven fragm ents of pale feliciano tissu e rangi ng in size from 0.1 to 0.4 cm. Entir perez submi tted in one casse tte. JAB 01/18 01:59 PM Micro scopi c Descr iptio n: A micro scopi c exami natio n has been perfo rmed. JAQUELIN Foy MD Geena d Out Date: 01/21 17:05 Page 1 of 1 Not Available [facility] [address] [place] [address], [place], [address], 01/21/2022 17:06:48 Result Notes None recorded. Medical Equipment None Reported. Allergies No known drug allergies Medications Name Sig Start Date Stop Date Status Note LastModified by Organization Details LastModified Time bisoprolol 10 mg-hydrochlor othiazide 6.25 mg tablet Take 1 tablet every day by oral route. active Not Available Not Available No t Available sucralfate 100 mg/mL oral suspension Take 10 mL 4 times a day by oral route as directed for 30 days. 2021 active Not Available Not Available Not Avai lable lisinopril 20 mg tablet Take 1 tablet every day by oral route. active Not Available Not Available No t Available simvastatin 10 mg tablet Take 1 tablet every day by oral route. active Not Available Not Available No t Available omeprazole 40 mg capsule,delay ed release Take 1 capsule every day by oral route as directed for 30 days. 2021 active Not Available Not Available Not Avai lable vitamin A active Not Available Not Elizabeth ilable Not Available Vitamin B12 active Not Available Not A vailable Not Available Vitals Date Recorded Body weight Respiratory rate Systolic And Diastolic Provider Name and Address Organization Details Last Updated DateTime 11/26/2021 13589.77 g 16 /min 118/60 mm[Hg] Love Diaz [facility] 11/26/2021 14:55:27 Social History Question Answer Notes LastModified by [employer] - Smartphone [employer] Details LastModified Time Tobacco Smoking Status Never Smoker Lovebraulio Diaz [facility] 11/26/2021 14:57:02 What Was The Date Of Your Most Recent Tobacco Screening? 11/26/2021 Information not available 11/26/2021 Has Tobacco Cessation Counseling Been Provided? No Information not available 11/26/2021 Sex: Unknown Functional Status Question Answer Note LastModified by Organizat ion Details LastModified Time Do you use any illicit or recreational drugs? No Information not available 11/26/2021 Do you or have you ever used any other forms of tobacco or nicotine? No Information not available 11/26/2021 What is your level of alcohol consumption? Occasional Information not available 11/26/2021 Mental Status None recorded. Family History Nothing Reported. Medical History Condition Response Acid Reflux (GERD) Y Heart Disease Y Hypertension Y Past Encounters Encounter ID Performer Location Encounter Start Date Encounter Closed Date Diagnosis/Indication Diagnosis SNOMED-CT Code Diagnosis ICD10 Code Diagnosis IMO Codes Diagnosis Note [id number] MARCELLE DICK APRN GASTRO [address] [facility] [place] [address] 11/26/2021 14:38:40 11/27/2021 07:25:46 Right upper quadrant pain 282879513 R10.11 Gastroesop hageal reflux disease without esophagitis 161090419 K21.9 [id number] KWADWO LICONA MD SURGERY SCHEDULE [address] [place] [address] 01/18/2022 09:12:56 01/18/2022 09:13:29 Health Concerns Section Related Observation LastModified by Organization Detai ls LastModified Time None Recorded Concern Status LastModified by Organization Details LastModified Time None Recorded Advance Directives Directive None Recorded Payers Insurance Date Sequence Insurance Name Policy Number Policy White Covered Member ID White Member ID Guarantor Name 01/24/2022 2 [place] [employer] 106 Chelsie Watts [id number] Chelsie Watts 01/15/2022 1 [place] Chelsie Watts [id number] Chelsie Watts Notes Date Note Type Note Provider Name and Address Organization Details Recorded Time 11/26/2021 text/html Chelsie Watts is a 76 yr old male here today for evaluation of RUQ pain, burning, for last [address] scan, labs in [place] at [facility] 2 weeks ago, and these were normal. Will request those results.Has occasional reflux, taking no meds at this time.History of ulcer with pyloraplasty for repair of ulcers, blockage caused by ulceration to stomach. No known history of hpylori.Denies OTC NSAIDS, but does take daily 81 mg ASA.denies melena, bright red rectal bleeding, nausea, vomiting.Does have bloating, sulfur belching. MARCELLE DICK, SHIFT SUPERVISOR MELTING [address], [place], [address], [facility] 11/26/2021 16:33:02
--- NOTE | 2025-04-11 08:00 | CA_ITS ---
APPROVED REPORT EXAM: Limited 2D Echocardiogram Operations Administrator: Cherrie Bagley CRT Ht: 5 ft 8 in Wt: 168lbs BSA: 1.90 BP: 156/60 mmHg Indications: CAD, Hyperlipidemia, Cardiomyopathy, Hypertension/HDD, ef check M-Mode Dimensions RVDd 2.25 cm (0.9-2.6) LA Diam 3.84 cm (1.9-4.0) LVDd 6.17 cm (3.5-5.7) LVDs 4.63 cm (3.5-5.7) IVSd 1.35 cm (0.6-1.1) PWd 0.78 cm (0.6-1.1) EF (Teich) 48.50% FS 25.00% EDV (Teich) 191.90 mL ESV (Teich) 98.80 mL Other Information Study Quality: Technically Difficult Conclusion This is a limited TTE to evaluate for LV systolic function. Limited windows are obtained. Technically difficult study. The left ventricle is normal in size. There is increased LV wall thickness. There is mild global hypokinesis present. LVEF is 45%. Compared to prior study from 01/13/2025, the LV systolic function is overall unchanged. Electronically signed by : Yuly Chapin MD 04/11/2025 13:09:47
== END 2025-04-11 23:59 | disposition home or self-care (01) ==
LOC: RT 07:50
PROVIDERS: PCP Internal Medicine Adolescent Medicine; Visit Provider Physician Assistant
DX: I50.20 Unspecified systolic (congestive) heart failure (principal); I25.5 Ischemic cardiomyopathy; I25.10 Atherosclerotic heart disease of native coronary artery without angina pectoris; E78.5 Hyperlipidemia, unspecified; R93.1 Abnormal findings on diagnostic imaging of heart and coronary circulation
CPT/HCPCS: 93308

== ENCOUNTER 2025-05-24 07:31 | Outpatient (CLI) | payer MEDICARE, BC, SELFPAY ==
--- OUTSIDE RECORDS SUMMARY | 2025-05-24 07:37 | XMS_ITS | Encounter Summary ---
[facility] Address [address] [place] [id number] Care Team Providers Care Terminal Make Up Operator Name Role Phone Provider, No Known Primary Care Provider Unavail able Encounter Details Date Type Department Care Team (Late st Contact Info) Description 12/14/2015 External CPT II [facility] Social History Tobacco Use [...] on filedocumented in this encounter Care Teams Terminal Make Up Operator Relationship Specialty Start Date End Date Provider, [place] [address] PCP - General 01/07/17 01/08/17 documented as of this encounter
--- OUTSIDE RECORDS SUMMARY | 2025-05-24 07:37 | XMS_ITS | Clinical Summary ---
Author Organization [facility] Address [address] [place] [address] Care Team Providers Care Open Hearth Furnace Laborer Name Role Phone Henrique Quiñones MD Primary Care Provider [phone] Allergies Active Allergy Reactions Criticality Noted Date [...] [facility]-Depression Screening 1947 [facility]-Hepatitis C Screening 1947 [facility]-Medicare Annual Wellness (AWV) 1947 [facility]-/Child/Adol SDOH Screenings 1947 [facility]- SDOH Screenings 1965 [facility]-Adult SDOH Screenings 1965 [facility]-DTaP,Tdap,and Td Vaccines (1 - Tdap) 1966 [facility]-Zoster Vaccines (1 of 2) 1997 [facility]-RSV Vaccine: 60+ Years or (1 - 1-dose 75+ series) 2022 [facility]-NOPUL-96 Vaccine ( - season) 2025 05/21/2021, 07/24/2020, [...] age to complete this topic Insurance MEDICARE FOR[facility]LY [facility] Care Teams Open Hearth Furnace Laborer Relationship Specialty Start Date End Date Henrique Quiñones MD [address] [place] [address] PCP - General 10/27/20
--- OUTSIDE RECORDS SUMMARY | 2025-05-24 07:37 | XMS_ITS | Clinical Summary ---
Author Organization [facility] Address [address] [place] [address] Care Team Providers Care Mud Mixer Operator Name Role Phone Unavailable Primary Care Provider [...] season) 2025 Insurance MEDICARE [facility]
--- NOTE | 2025-05-24 07:43 | US_ITS ---
FINAL REPORT TECHNIQUE: Ultrasound images of the abdomen were obtained. CLINICAL HISTORY: WT LOSS -- CONSTIPATION FINDINGS: The pancreas is obscured by bowel gas. The liver is unremarkable. Trace sludge is seen in the gallbladder. The common duct is normal. The right kidney measures 12.2 cm in length and is normal in echogenicity without hydronephrosis. There is a right renal cyst measuring 1.4 cm. The left kidney measures 11.1 cm in length and is normal in echogenicity without hydronephrosis. The spleen is unremarkable. The aorta is normal in caliber. The vena cava is unremarkable. IMPRESSION: Trace gallbladder sludge. Right renal cyst. Reviewed, Interpreted and Dictated by Kevin Estrella MD Transcribed by Bibi Martínez Authenticated and [facility]
--- NOTE | 2025-05-24 07:44 | CT_ITS ---
FINAL REPORT TECHNIQUE: After the administration of oral and intravenous contrast, axial images were obtained through the abdomen and pelvis by computed tomography. The study was performed with techniques to keep radiation dose as low as reasonably achievable, (ALARA). Individual dose reduction techniques using automated exposure control or adjustment of mA and/or kV according to the patient's size were employed. CLINICAL HISTORY: abnormal weight loss COMPARISON: 11/08/2021 report only FINDINGS: Abdomen: The lung bases are clear. The liver parenchyma is homogeneous. The gallbladder is present. Calcified granulomas are seen in the spleen. Otherwise, the spleen, pancreas, left adrenal gland appear unremarkable. There is a 6 mm left adrenal nodule seen on image #29 of series 5, the likely represents an adenoma. There is a 17 mm benign-appearing cyst in the right kidney, otherwise the kidneys appear unremarkable. There are dense vascular calcifications present, most pronounced in the right common femoral artery where there is approximately 50% stenosis. There is no free fluid or adenopathy. Pelvis: The appendix is not identified. The urinary bladder is unremarkable. There is no free fluid or adenopathy. IMPRESSION: No acute intra-abdominal process. 6 mm left adrenal nodule, likely an adenoma. 17 mm benign-appearing cyst in the right kidney. Dense vascular calcifications, with a right common femoral artery stenosis of approximately 50%. Reviewed, Interpreted and Dictated by Kevin Estrella MD Transcribed by Brooklynn Dawson Authenticated and [facility]
--- NOTE | 2025-05-24 07:44 | CT_ITS ---
FINAL REPORT TECHNIQUE: Routine axial images were obtained from the lung apices to below the diaphragm following IV contrast administration. Individualized dose reduction techniques using automated exposure control or adjustment of the mA and/or kV according to the patient size were employed. CLINICAL HISTORY: ABNORMAL WEIGHT LOSS COMPARISON: None FINDINGS: CT CHEST WITH CONTRAST: Mediastinal wires are present. There are dense coronary artery calcifications identified. No pleural or pericardial effusion is seen. No adenopathy is present. There are small branching densities in the anterior right lower lobe, best seen on images #62 through 65, that may be secondary to mucous plugging. IMPRESSION: Small branching densities in the anterior right lower lobe, may be secondary to mucous plugging. Recommend follow-up CT in 4 to 6 weeks to reevaluate. Reviewed, Interpreted and Dictated by Kevin Estrella MD Transcribed by Brooklynn Dawson Authenticated and [facility]
[2025-05-24 08:26] LABS: Blood Urea Nitrogen 11 mg/dl (9-20); Creatinine,Serum 0.60 mg/dl (0.66-1.25); Estimated Glomerular Filt Rate 131 ml/min (>60); GFR (African American) 158 ML/MIN (>60)
[2025-05-24] MEDS: SODIUM CHLORIDE 0.9% 10ML SYR (RAD ONLY) 10 ML IV (09:06)
[2025-05-24] MEDS: IOPAMIDOL-370 (76%);100ML BOTTLE 75 ML IV (09:06)
== END 2025-05-24 23:59 | disposition home or self-care (01) ==
LOC: RAD 07:35
PROVIDERS: PCP Internal Medicine Adolescent Medicine; Visit Provider Internal Medicine Adolescent Medicine
DX: N28.1 Cyst of kidney, acquired (principal); E27.9 Disorder of adrenal gland, unspecified; I70.201 Unspecified atherosclerosis of native arteries of extremities, right leg; R91.8 Other nonspecific abnormal finding of lung field; R63.4 Abnormal weight loss; R10.84 Generalized abdominal pain
CPT/HCPCS: 36415; 71260; 74177; 76700; 82565; 84520; Q9967

== ENCOUNTER 2025-05-26 12:29 | Day surgery (SDC) | payer MEDICARE, BC, SELFPAY ==
--- NOTE | 2025-05-24 15:52 | EXP.HP ---
History of Present Illness *Admission Date: 05/26/25 *History of present illness: Mr. Watts is a 79-year-old gentleman who is here for diagnostic colonoscopy secondary to a marked change in bowel habits. The patient does report chronic constipation but more recently is unable to have a bowel movement. He does have some results with stimulant laxative such as Dulcolax or Ex-Lax but has not seen any improvement with Linzess 145 mcg which was started a couple of days ago. The patient now states that food just stays on his stomach and he does have a lot of bloating and fullness. He has lost about 15 pounds in the last 3 months and does attribute some of this to his coronary stent placement (3 coronary stents placed by Charanjit Rodas M.D.) in January 2025. The patient reports no abdominal pain. He reports no rectal bleeding or family history of colon cancer. The patient has never had a colonoscopy. The patient has had a drop in his hemoglobin/hematocrit mildly over the last 2 to 3 months with most recent hemoglobin/hematocrit of 14.0 and 39.5 on 02/17/2025 and this normally is hemoglobin of 16.1 and hematocrit 47.0 (in January 2025). The patient does state that he had an EGD 5 or 6 years ago (Kala Elias MD) at [facility] and was told that he had food sitting on his stomach. The examination is deemed medically necessary for diagnostic colonoscopy. The patient has been seen, interviewed and examined prior to the procedure by both myself and the anesthesia provider. [facility] Disclaimer: The information contained in this section may have been updated after the patient was seen, as this information can be updated by other users. Medical History HFrEF (heart failure with reduced ejection fraction) LV dysfunction Left carotid bruit Cardiomyopathy Hyperlipidemia Hypertension Surgical History History of bowel resection History of coronary artery bypass graft Family History Other No significant family history Social History Smoking Status: Never smoker second hand exposure: No alcohol intake: current alcohol intake frequency: 0-2 drinks per day substance use type: denies use current occupational status: retired Travel in the last 8 weeks?: Inside the [place] household members: spouse and children housing: house current occupational exposures/hazards: No caffeine: Yes Have you lived/traveled outside US in past 30 days?: No Contact w/someone who lives/traveled outside US past 30 days?: No Exposure to someone with infectious disease in past 14 days?: No Do you have a fever (greater than 100.4 F or 38 C)?: No Have you tested positive for COVID-19?: No Exposed to someone with COVID-19 in past 14 days?: No Do you have a sore throat?: No Do you have a cough?: No Do you have any weakness?: No Do you have any diarrhea?: No Are you experiencing any unusual bleeding?: No Do you have any muscle aches/pain?: No Do you have any abdominal pain?: No Are you experiencing loss of taste or smell?: No Other Medical History Have you received the Flu Vaccine for this season: No Have you received the Pneumonia Vaccine: Yes Review of Systems Review of Systems Review of systems (narrative): Negative *Cardiovascular Comments: Negative *Gastrointestinal Comments: Negative *Genitourinary Comments: Negative *Musculoskeletal Comments: Negative *Neurologic Comments: Negative Meds Home Medications and Allergies Home Medications ?Medication ?Instructions ?Recorded ?Confirmed ?Type nitroglycerin 0.4 mg sublingual 0.4 mg sublingual Q5M PRN chest 10/21/24 05/25/25 Rx tablet pain #25 tabs ezetimibe 10 mg-simvastatin 80 mg 1 tab PO DAILY 10/80mg 01/27/25 05/25/25 History tablet bisoprolol fumarate 10 mg tablet 5 mg (1/2 x 10 mg) PO BID #180 tabs 02/03/25 05/25/25 Rx clopidogrel 75 mg tablet 75 mg PO DAILY 02/17/25 05/25/25 History empagliflozin 10 mg tablet 10 mg PO DAILY 02/17/25 05/25/25 History (Jardiance) nifedipine 30 mg tablet,extended 30 mg PO DAILY 02/17/25 05/25/25 History release 24 hr aspirin 81 mg tablet,delayed 81 mg PO HS #30 tabs 05/18/25 05/25/25 Rx release irbesartan 150 mg tablet 150 mg PO BID #30 tabs 05/18/25 05/25/25 Rx linaclotide 145 mcg capsule 145 mcg PO DAILY 05/18/25 05/25/25 History (Linzess) New Prescriptions to Start Prescriptions: Allergies Allergy/AdvReac Type Severity Reaction Status Date / Time hydrochlorothiazide AdvReac Other Verified 05/26/25 13:17 lisinopril AdvReac Other Verified 05/26/25 13:17 Exam *Routine HEENT Exam Head: Present normocephalic Eye: Present EOMI and PERRL ENT: Present mucous membranes moist *Routine Neck Exam Neck: Present supple *Routine Respiratory Exam Respiratory: Present CTA bilaterally *Routine Cardiovascular Exam Cardiovascular: Present RRR *Routine Abdominal Exam Abdominal: Present soft and normoactive bowel sounds; Absent tenderness *Routine Rectal Exam Rectal:: deferred *Routine Genitalia Exam Genitalia:: deferred *Routine Extremities Exam Extremities: Absent cyanosis, clubbing or edema *Routine Skin Exam Skin: Present warm; Absent rash *Routine Neurological Exam Neurological: Present alert and oriented X3 Assessment and Plan *Assessment and plan (1) Change in bowel habits: Status: Acute Category: Medical Code(s): R19.4 - Change in bowel habit (2) Constipation: Status: Acute Category: Medical Code(s): K59.00 - Constipation, unspecified (3) Abdominal fullness: Status: Acute Category: Medical Code(s): R19.8 - Other specified symptoms and signs involving the digestive system and abdomen (4) Early satiety: Status: Acute Category: Medical Code(s): R68.81 - Early satiety (5) Abnormal weight loss: Status: Acute Category: Medical Code(s): R63.4 - Abnormal weight loss (6) Anemia: Status: Acute Category: Medical Code(s): D64.9 - Anemia, unspecified Plan A/P: 1. Marked and abrupt change in bowel habits with constipation, fullness, early satiety and abnormal weight loss is the preprocedural diagnosis. The patient also has anemia. The patient will be anesthetized/sedated using MAC sedation. The patient has been seen and examined. Cardiac and lung assessment prior to the examination is stable. Proceed with planned diagnostic colonoscopy.
[2025-05-25 15:55] VITALS: BMI 24.6
--- NOTE | 2025-05-26 07:01 | HMH.PROCNOTE ---
[facility] Procedure Note Date: 05/26/25 Time: 14:58 Procedure Note:: Colonoscopy Procedure Report: Colonoscopy with cold snare polypectomy Endoscopist: Ty Lozano II, MD Referring physician: Henrique Quiñones M.D. Date of Procedure: May 26, 2025 Equipment: Olympus [id number] adult colonoscope Sedation: MAC sedation Indication: Mr. Watts is a 79-year-old gentleman who is here for diagnostic colonoscopy secondary to a marked change in bowel habits. The patient does report chronic constipation but more recently is unable to have a bowel movement. He does have some results with stimulant laxative such as Dulcolax or Ex-Lax but has not seen any improvement with Linzess 145 mcg which was started a couple of days ago. The patient now states that food just stays on his stomach and he does have a lot of bloating and fullness. He has lost about 15 pounds in the last 3 months and does attribute some of this to his coronary stent placement (3 coronary stents placed by Charanjit Rodas M.D.) in January 2025. The patient reports no abdominal pain. He reports no rectal bleeding or family history of colon cancer. The patient has never had a colonoscopy. The patient has had a drop in his hemoglobin/hematocrit mildly over the last 2 to 3 months with most recent hemoglobin/hematocrit of 14.0 and 39.5 on 02/17/2025 and this normally is hemoglobin of 16.1 and hematocrit 47.0 (in January 2025). The patient does state that he had an EGD 5 or 6 years ago (Kala Elias MD) at [facility] and was told that he had food sitting on his stomach. The examination is deemed medically necessary for diagnostic colonoscopy. Procedure: Prior to the procedure, a history and physical exam was performed, and patient's medications and allergies were reviewed. The risks, benefits and alternatives of the sedation and procedure were discussed with the patient. All questions were answered and informed consent was obtained. The patient was brought to the procedure room. Patient identification and proposed procedure were verified by the physician and the nurse. The patient was placed in a left lateral decubitus position and the scope was passed under direct vision. Throughout the procedure, the patient's blood pressure, pulse, and oxygen saturations were monitored continuously. The colonoscopy was accomplished without difficulty. The patient tolerated the procedure well. Findings: On digital rectal examination there was normal rectal tone. There were no external hemorrhoids. The colonoscope was introduced through the anal canal to the rectum and advanced to the cecum. The ileocecal valve and appendiceal orifice were identified. The scope was advanced a short distance into the ileum which appeared grossly normal. The scope was then withdrawn into the colon. There were 3 colon polyps (cecum x 1 (13 mm), ascending x 1 (5 mm) and sigmoid x 1 (3 mm)). These were all removed via cold snare polypectomy. The remaining cecum, ascending, transverse, descending, sigmoid and rectum were grossly normal. There were no mucosal abnormalities identified. Upon retroflexion within the rectum there were grade 1-2 internal hemorrhoids. The preparation was excellent throughout with Karthaus Preparation Score of 9. The cecal time was 12 minutes. Impression: 1. Colonic polyps x 3 (3, 5 and 13 mm) Plan: I will follow-up the polyp histology and determine whether further surveillance is warranted. The patient does have some outlet dysfunction constipation and we will discuss treatment options as well as pelvic floor physical therapy.
[2025-05-26 13:08] VITALS: BP 145/75; PULSE 69; RESP 18; TEMP 36.4; O2SAT 98
[2025-05-26] MEDS: LACTATED RINGERS 1000ML 1,000 ML 50 ML IV (13:18)
--- NOTE | 2025-05-26 14:28 | EXP.ANES.CKL ---
[facility] Disclaimer: The information contained in this section may have been updated after the patient was seen, as this information can be updated by other users. Medical History HFrEF (heart failure with reduced ejection fraction) LV dysfunction Left carotid bruit Cardiomyopathy Hyperlipidemia Hypertension Surgical History History of bowel resection History of coronary artery bypass graft Family History Other No significant family history Social History Smoking Status: Never smoker second hand exposure: No alcohol intake: current alcohol intake frequency: 0-2 drinks per day substance use type: denies use current occupational status: retired Travel in the last 8 weeks?: Inside the [place] household members: spouse and children housing: house current occupational exposures/hazards: No caffeine: Yes Have you lived/traveled outside [place] in past 30 days?: No Contact w/someone who lives/traveled outside [place] past 30 days?: No Exposure to someone with infectious disease in past 14 days?: No Do you have a fever (greater than 100.4 F or 38 C)?: No Have you tested positive for COVID-19?: No Exposed to someone with COVID-19 in past 14 days?: No Do you have a sore throat?: No Do you have a cough?: No Do you have any weakness?: No Do you have any diarrhea?: No Are you experiencing any unusual bleeding?: No Do you have any muscle aches/pain?: No Do you have any abdominal pain?: No Are you experiencing loss of taste or smell?: No [facility] Anesthesia Checklist Patient Identification Patient Identification: Arm Band Structural Data Admitted From: Home Planned Operative Procedure/s: Colonoscopy Consent for Planned Operative Procedure(s) Verified: Yes Verified Documents: Surgical Consent and History and Physical NPO Status Verified Time NPO: 09:30 (finished prep) Additional verifications Anesthesia Reactions: No Airway Assessment Mallampati Score:: Class II C-Spine Mobility Assessed: Yes TMJ Mobility Assessed: Yes Dentition: Good Dentition Neurological Assessment Level of Consciousness: Awake, Alert and Appropriate Anesthesia Plan Anesthesia Risk discussed: Yes Anesthesia Plan: Verified ASA Class: III Anesthesia Type: MAC
[2025-05-26 15:01] VITALS: BP 78/44; PULSE 57; RESP 17; TEMP 36.1; O2SAT 95
[2025-05-26 15:16] VITALS: BP 89/49; PULSE 60; RESP 17; O2SAT 96
[2025-05-26 15:31] VITALS: BP 110/74; PULSE 65; RESP 17; TEMP 36.1; O2SAT 96
== END 2025-05-26 15:38 | disposition home or self-care (01) ==
PROVIDERS: PCP Internal Medicine Adolescent Medicine; Visit Provider Internal Medicine Gastroenterology
PROC: 0DJD8ZZ Inspection of Lower Intestinal Tract, Via Natural or Artificial Opening Endoscopic (ICD-10-PCS; CPT 45378; principal; 2025-05-26 14:30)
DX: D12.0 Benign neoplasm of cecum (principal); D12.2 Benign neoplasm of ascending colon; D12.5 Benign neoplasm of sigmoid colon; R68.81 Early satiety; R63.4 Abnormal weight loss; K64.0 First degree hemorrhoids; K64.1 Second degree hemorrhoids; K59.09 Other constipation; I11.0 Hypertensive heart disease with heart failure; I50.20 Unspecified systolic (congestive) heart failure; E78.5 Hyperlipidemia, unspecified; R09.89 Other specified symptoms and signs involving the circulatory and respiratory systems; Z90.49 Acquired absence of other specified parts of digestive tract; Z95.1 Presence of aortocoronary bypass graft; Z79.84 Long term (current) use of oral hypoglycemic drugs; Z79.899 Other long term (current) drug therapy; Z79.82 Long term (current) use of aspirin; Z95.5 Presence of coronary angioplasty implant and graft; Z88.8 Allergy status to other drugs, medicaments and biological substances
CPT/HCPCS: 45385; 88305; J2003; J2704; J7120